=== PATIENT | male | born 1970 | race Caucasian/White ===

== ENCOUNTER 2016-08-15 09:11 | Observation (INO) ==
[2016-08-15] MEDS ORDERED: 0.9 % Sodium Chloride 1,000 ML IVC ONE (09:25)
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
[2016-08-15 09:55] LABS: Basophils # 0.1 K/mcL (0.0-0.2); Basophils % 0.7 %; Eosinophils # 0.5 K/mcL (0.0-0.6); Eosinophils % 4.2 %; Hematocrit 47.3 % (37.5-50.1); Hemoglobin 15.1 g/dL (12.9-16.9); Immature Granulocytes % 0.7 % (0-4); Immature Platelets 3.4 % (1.1-6.1); Lymphocytes # 2.2 K/mcL (0.6-4.6); Lymphocytes % 19.5 %; Mean Corpuscular HGB Conc 31.9 g/dL (31.6-35.5); Mean Corpuscular Hemoglobin 29.7 pg (28.0-33.3); Mean Corpuscular Volume 92.9 fL (83.0-100.0); Mean Platelet Volume 9.7 fL (9.4-12.4); Monocytes # 0.7 K/mcL (0.0-1.3); Neutrophils # 7.8 K/mcL (1.6-8.9); Platelet Count 317 K/mcL (140-400); Red Blood Count 5.09 M/mcL (4.19-5.50); Red Cell Distribution Width 14.1 % (11.5-14.5); Segmented Neutrophils % 68.9 %
--- NOTE | 2016-08-15 10:06 | Emergency Department Note ---
Disposition Clinical Impression: Hypoxemia, Weakness Fall Qualifiers: Encounter type: initial encounter Qualified Code(s): W19.XXXA - Unspecified fall, initial encounter Disposition: Admitted As Inpatient Condition: Good Time of Disposition: 11:57 Fall HPI - General Chief Complaint: ED Fall Stated Complaint: fall Time Seen by Provider: 08/15/16 09:16 Source: EMS Mode of arrival: ambulatory Limitations: no limitations Nursing Notes Reviewed: Yes Vital Signs Reviewed: Yes - History of Present Illness HPI Narrative: Patient is a 46-year-old male who presents to [facility] ED with a chief complaint of right-sided rib and hip pain status post fall. Patient has been sick with flulike symptoms for the last 2 weeks. He was seen in the emergency department on the and he has been on Bactrim and clindamycin for his sacral pilonidal cyst. Patient has had tactile fevers at home. States he has felt very dizzy throughout the last 2 weeks. Today when coming back from the mailbox, he was dizzy and fell against a coffee table. Patient states he does have chronic pain associated with his right hip and he has had prior total hip replacement done. He was able to ambulate afterwards with a cane. Has had some symptoms of nausea, vomiting and feels hot and cold at times. Past medical history significant for psychiatric problems and chronic pain. He follows with at the residency clinic. Patient denies being on any blood thinners. 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 Fall From: standing Fall Witnessed: yes Place Fall Occurred: home Loss of Consciousness: none Prolonged Down Time?: no Symptoms Prior to Fall: dizziness Context: tripped/slipped Location of injury: chest, hip Severity: moderate Associated symptoms (after fall): Reports: numbness - Related Data Previous Rx's Medication Instructions Recorded Gabapentin [Neurontin] 300 mg PO TID #90 capsule 05/14/15 Hydrochlorothiazide 25 mg PO DAILY #30 tablet 05/14/15 RisperiDONE [RisperDAL] 0.5 mg PO DAILY #30 tablet 05/14/15 Methocarbamol [Robaxin-750] 750 mg PO TID #30 tablet 07/17/15 Cyclobenzaprine HCl 10 mg PO HS PRN #20 tablet 06/17/16 Cephalexin [Keflex] 500 mg PO QID #40 capsule 07/01/16 GuaiFENesin/Dextromethorphan 5 ml PO Q6H PRN #120 ml 07/01/16 [Robitussin Cough-Chest Dm Liq] Ibuprofen [Motrin] 800 mg PO Q8HR PRN #30 tablet 07/01/16 Magic Mouthwash 5 ml PO TID PRN #120 ml 07/01/16 OxyCODONE/APAP 5/325 [Percocet 1 each PO Q6HR PRN #30 tablet 07/02/16 5/325 MG] HYDROcodone/Acet 5/325 mg [[employer] 1 tab PO Q6H PRN #16 tab 08/02/16 5-325 mg] Sulfamethoxazole/Trimeth DS 1 each PO BID #28 tablet 08/02/16 [Bactrim DS] OxyCODONE/APAP 10/325 [Percocet 1 each PO Q6HR PRN #12 tablet 08/07/16 10/325 MG] Allergies Allergy/AdvReac Type Severity Reaction Status Date / Time aspirin [ASA] Allergy Swelling Verified 07/02/16 11:58 of Lip/Tongue/Throat All systems ED: reviewed and negative except as stated. Fall PMH - Past Medical History Medical history: Reports: hypertension, other Surgical history: Reports: other Psychiatric history: Reports: prior suicide attempt, schizophrenia, other - Social History Smoking Status: Current every day smoker Alcohol use: Reports: unknown Drug use: Reports: none Physical Exam - General Limitations: no limitations General appearance: alert, appears intoxicated - Head Head exam: atraumatic, normocephalic, normal inspection - Eye Eye exam: Present: normal appearance, PERRL, EOMI - ENT ENT exam: normal exam, normal oropharynx, mucous membranes moist - Neck Neck exam: Present: normal inspection, full ROM, trachea midline - Chest Chest inspection: Present: normal inspection, symmetric chest wall rise - Respiratory Respiratory exam: Present: normal lung sounds bilaterally - Cardiovascular Cardiovascular exam: Present: normal rhythm, tachycardia, normal heart sounds - Abdominal Exam Abdominal exam: Present: soft, Non-Tender. Absent: tenderness, distention, guarding, rebound, rigidity - Extremities Exam Extremities exam: Present: normal inspection, full ROM. Absent: tenderness, pedal edema - Back Exam Back exam: Present: normal inspection, full ROM. Absent: tenderness - Neurological Exam Neurological exam: Present: alert, oriented X3 - Psychiatric Psychiatric exam: Present: normal affect, normal mood - Skin Skin exam: Present: warm, intact, normal color, diaphoresis Course Course Narrative: Patient seen and examined. He is hypoxemic on arrival at 89% on room air. Has had flulike symptoms over the last 2 weeks and has felt persistent lightheadedness and at times feels like the room is spinning. He had a fall today and hurt his right hip and right side of the chest. Rib x-rays along with PA chest x-ray and right hip x-ray ordered. We will check some labs and give him a bolus of IV fluids. - Reevaluation(s) Reevaluation #1: Labs show mild leukocytosis with a shift. Chest x-ray shows possible mild pulmonary edema and possible infiltration. We will go ahead and admit to the hospitalist service since patient is hypoxemic without oxygen. I spoke with hospitalist Dr. Browne who has accepted for admission. Influenza test was negative. Time: 11:56 Vital Signs Temperature 97.4 F L 08/15/16 09:13 Pulse Rate 99 08/15/16 09:13 Respiratory Rate 15 08/15/16 09:13 Blood Pressure 126/86 08/15/16 09:13 O2 Sat by Pulse Oximetry 91 L 08/15/16 09:13 Temperature 97.4 F L 08/15/16 09:13 Pulse Rate 96 08/15/16 11:40 Respiratory Rate 13 08/15/16 11:40 Blood Pressure 178/136 08/15/16 11:40 O2 Sat by Pulse Oximetry 91 L 08/15/16 11:40 Oxygen Delivery Oxygen Delivery Nasal Cannula Fall - Medical Records Medical records reviewed: Yes I reviewed the patient's medical records. - Lab Data Lab results reviewed: Yes I reviewed the patient's lab results. Result diagrams: 08/15/16 09:30 08/15/16 09:30 Lab Results 08/15/16 08/15/16 08/15/16 Range/Units 09:30 09:30 09:30 WBC 11.3 H (4.3-11.1) K/mcL RBC 5.09 (4.19-5.50) M/mcL Hgb 15.1 (12.9-16.9) g/dL Hct 47.3 (37.5-50.1) % MCV 92.9 (83.0-100.0) fL MCH 29.7 (28.0-33.3) pg MCHC 31.9 (31.6-35.5) g/dL RDW 14.1 (11.5-14.5) % Plt Count 317 (140-400) K/mcL MPV 9.7 (9.4-12.4) fL Immature Gran % 0.7 (0-4) % Seg Neutrophils % 68.9 % Lymphocytes % 19.5 % Monocytes % 6.0 % Eosinophils % 4.2 % Basophils % 0.7 % Neutrophils # 7.8 (1.6-8.9) K/mcL Lymphocytes # 2.2 (0.6-4.6) K/mcL Monocytes # 0.7 (0.0-1.3) K/mcL Eosinophils # 0.5 (0.0-0.6) K/mcL Basophils # 0.1 (0.0-0.2) K/mcL Immature Plt Fraction 3.4 (1.1-6.1) % Sodium 133 L (136-145) mEq/L Potassium 4.3 (3.5-4.5) mEq/L Chloride 101 (98-109) mEq/L Carbon Dioxide 23 (19-29) mEq/L BUN 7 L (8-26) mg/dL Creatinine 0.80 (0.72-1.25) mg/dL Est GFR ( Amer) > 60 (> 60) Est GFR (Non-Af Amer) > 60 (> 60) BUN/Creatinine Ratio 9 (6-26) Glucose 260 H (70-99) mg/dL Calculated Osmolality 283 (280-300) Lactic Acid (0.5-2.2) mmol/L Calcium 8.9 (8.6-10.8) mg/dL Total Bilirubin 0.4 (0.2-1.2) mg/dL AST 59 H (5-34) Units/L ALT 32 (0-55) Units/L Alkaline Phosphatase 118 (38-126) Units/L Troponin I 0.01 (0-0.03) ng/mL Serum Total Protein 8.4 H (6.0-8.3) g/dL Albumin 2.6 L (3.5-5.0) g/dL Globulin 5.8 H (2.4-3.5) g/dL Albumin/Globulin Ratio 0.4 L (1.1-2.2) 08/15/16 Range/Units 09:50 WBC (4.3-11.1) K/mcL RBC (4.19-5.50) M/mcL Hgb (12.9-16.9) g/dL Hct (37.5-50.1) % MCV (83.0-100.0) fL MCH (28.0-33.3) pg MCHC (31.6-35.5) g/dL RDW (11.5-14.5) % Plt Count (140-400) K/mcL MPV (9.4-12.4) fL Immature Gran % (0-4) % Seg Neutrophils % % Lymphocytes % % Monocytes % % Eosinophils % % Basophils % % Neutrophils # (1.6-8.9) K/mcL Lymphocytes # (0.6-4.6) K/mcL Monocytes # (0.0-1.3) K/mcL Eosinophils # (0.0-0.6) K/mcL Basophils # (0.0-0.2) K/mcL Immature Plt Fraction (1.1-6.1) % Sodium (136-145) mEq/L Potassium (3.5-4.5) mEq/L Chloride (98-109) mEq/L Carbon Dioxide (19-29) mEq/L BUN (8-26) mg/dL Creatinine (0.72-1.25) mg/dL Est GFR ( Amer) (> 60) Est GFR (Non-Af Amer) (> 60) BUN/Creatinine Ratio (6-26) Glucose (70-99) mg/dL Calculated Osmolality (280-300) Lactic Acid 1.3 (0.5-2.2) mmol/L Calcium (8.6-10.8) mg/dL Total Bilirubin (0.2-1.2) mg/dL AST (5-34) Units/L ALT (0-55) Units/L Alkaline Phosphatase (38-126) Units/L Troponin I (0-0.03) ng/mL Serum Total Protein (6.0-8.3) g/dL Albumin (3.5-5.0) g/dL Globulin (2.4-3.5) g/dL Albumin/Globulin Ratio (1.1-2.2) - Radiology Data Radiology results reviewed: Yes I reviewed the patient's radiology results. - EKG Data EKG attestation: Yes I reviewed and interpreted this EKG. EKG results narrative: EKG done at 941 shows normal sinus rhythm with a rate of [address] elevation or depression. Normal axis.
[2016-08-15 10:09] LABS: Alanine Aminotransferase 32 Units/L (0-55); Albumin 2.6 g/dL (3.5-5.0); Albumin/Globulin Ratio 0.4 (1.1-2.2); Alkaline Phosphatase 118 Units/L (38-126); Aspartate Amino Transferase 59 Units/L (5-34); BUN/Creatinine Ratio 9 (6-26); Bilirubin,Total 0.4 mg/dL (0.2-1.2); Blood Urea Nitrogen 7 mg/dL (8-26); Calcium 8.9 mg/dL (8.6-10.8); Carbon Dioxide 23 mEq/L (19-29); Chloride 101 mEq/L (98-109); Globulin 5.8 g/dL (2.4-3.5); Glucose 260 mg/dL (70-99); Osmolality,Calculated 283 (280-300); Potassium 4.3 mEq/L (3.5-4.5); Sodium 133 mEq/L (136-145); Total Protein 8.4 g/dL (6.0-8.3); eGFR For African Americans > 60 (> 60); eGFR For Non-African Americans > 60 (> 60)
[2016-08-15] MEDS ORDERED: Ondansetron 4 MG/2 ML VIAL IVP ONE (10:42)
[2016-08-15] MEDS ORDERED: *HR* HYDROmorphone (PF) 1 MG/ML SYRINGE IVP ONE (10:42)
[2016-08-15] MEDS ORDERED: Acetaminophen 325 MG TABLET PO PRN (12:44)
[2016-08-15] MEDS ORDERED: Naloxone 0.4 MG/ML INJ IVP PRN (12:44)
[2016-08-15] MEDS ORDERED: Ondansetron 4 MG/2 ML VIAL IVP PRN (12:46)
[2016-08-15] MEDS ORDERED: MOM Conc 10 ML UD.LIQ PO PRN (12:46)
[2016-08-15] MEDS ORDERED: Mag Hydrox/Al Hydrox/Simeth 30 ML UDC PO PRN (12:46)
[2016-08-15] MEDS ORDERED: Ibuprofen 800 MG TABLET PO PRN (12:48)
[2016-08-15] MEDS: 0.9 % Sodium Chloride 1,000 ML IVC SCH (13:20)
--- NOTE | 2016-08-15 13:23 | Internal Med History&Physical ---
<Haley Claros - Last Filed: 08/15/16 14:28> Date of Encounter: 08/15/16 Time of Encounter: 13:10 Assessment and Plan (1) Hypoxemia Current visit: Yes Status: Acute Pt SOB this a.m. and room air sats 91%. States that he became dizzy and fell at home. Chest xray shows low lung volume and mild pulmonary vascular congestion. Pt states that he has "walking pneumonia" and is being treated with PCN for the last week. Denies chest pain, fever, or productive cough, flu swab negative. Ronchi and faint expiratory wheezing heard in R post lung bonilla. 02 n/c to keep sats >92% Albuterol nebs prn Duoneb q4h prn Chest CT D-dimer 6 min walk/Sp02 Overnight pulse ox (2) Fall Current visit: Yes Status: Acute Dizziness this a.m. at home, he fell into the coffee table, injuring R ribs and hip. Fall precautions Up with assist. Qualifiers: Encounter type: initial encounter Qualified Code(s): W19.XXXA - Unspecified fall, initial encounter (3) Hyperglycemia Current visit: Yes Status: Acute Glucose 260 this a.m. Pt states that he had not eaten before it was drawn. A1c ordered. (4) Chronic pain Current visit: Yes Status: Chronic Pt sees pain management for chronic pain from R hip replacement. Pain control Qualifiers: Chronic pain type: chronic pain syndrome Qualified Code(s): G89.4 - Chronic pain syndrome (5) Flu-like symptoms Current visit: No Status: Acute Pt reports feeling dizzy this a.m. and reports non-productive cough. Flu swab negative. Internal Medicine - H&P: HPI Chief complaint: fall today, hypoxia Admitted From: Home Plans for Post Hospital Care: Home History of present illness: Mr. Norris is a 46 year old male with history of recurrent pylonidal cyst, schizophrenia, bipolar disorder, and chronic pain. He presents to the ED today after becoming dizzy and falling at home today, injuring R ribs and hip. He was found to be hypoxic with no identified cause. Rib and hip xrays negative for fractures and Head CT negative for acute intracranial process. Chest xray did show, however, low lung volume with mild pulmonary vascular congestion. Pt states that he was told by Dr. Stoddard that he had "walking pneumonia" and was placed on PCN for that, as well as Bactrim for his recent surgery for recurrent pylonidal cyst 3 weeks ago. He has been ill for 2 weeks. He smokes about 1 PPD. He gets home health for dressing changes. During exam, pt eats entire meal tray and speaks easily in full sentences without any difficulty. Past Med Surg Social Fam HX - Past Medical History Medical history: hypertension Psychiatric history: prior suicide attempt, schizophrenia, other - Past Surgical History Surgical History: other - Social History Smoking Status: Current every day smoker Packs per day: 06/30 Smokeless Tobacco Status: No Alcohol use: none Drug use: none Internal Medicine - H&P: Meds Amoxicillin/Clavulanate [Augmentin] 875 mg PO BID 08/15/16 [History] Clindamycin [Cleocin] 300 mg PO Q8H 08/15/16 [History] HYDROcodone/Acet 5/325 mg [[place] 5-325 mg] 1 tab PO Q6H PRN 08/15/16 [History] HydrOXYzine Pamoate [Vistaril] 25 mg PO Q8H PRN 08/15/16 [History] Allergies aspirin [ASA] Allergy (Verified 07/02/16 11:58) Swelling of Lip/Tongue/Throat All Systems PM: A 10-system review of systems was performed and is negative for pertinent findings except as documented above in the HPI. - Constitutional Constitutional: no chills, no fever(s), no weakness - Cardiovascular Cardiovascular ROS IM: dyspnea, no chest pain, no lightheadedness, no palpitations - Respiratory Respiratory: cough, dyspnea, dyspnea on exertion, no chest congestion, no excessive phlegm production, no change in phlegm color, no pain with cough - Gastrointestinal Gastrointestinal: no diarrhea, no nausea, no vomiting - Integumentary Integumentary IM: no rash - Neurological Neurological ROS: dizziness - Constitutional Vitals: Temp Pulse Resp BP Pulse Ox 98.4 F 84 14 132/78 96 08/15/16 12:50 08/15/16 12:50 08/15/16 12:50 08/15/16 12:50 08/15/16 12:50 General appearance: Present: cooperative, A&O X 3, morbidly obese, no acute distress, answers questions appropriately - ENT ENT exam: Present: mucous membranes moist, normal exam - Neck Neck exam general surgery: Absent: lymphadenopathy, tenderness - Respiratory Respiratory exam: Present: decreased breath sounds, rhonchi, wheezes. Absent: chest wall tenderness, respiratory distress Additional comments: No chest wall/rib tenderness to palpation. Decreased lung sounds throughout, ronchi heard on R post - Cardiovascular Cardiovascular exam: Present: RRR, +S1, +S2. Absent: tachycardia - GI/Abdominal GI/Abdominal exam: Present: distended, hyperactive bowel sounds, soft. Absent: tenderness - Extremities Exam Extremities exam: Present: normal capillary refill, pedal edema, warm. Absent: calf tenderness, tenderness - Back Exam Back exam: Present: full ROM, normal inspection Additional comments: Pt has dressing covering site where pylonidal cyst was removed. - Neurological Exam Neurological exam: Present: alert, oriented X3, no focal deficits - Psychiatric Psychiatric exam: Present: normal affect, normal mood Internal Med - H&P Results - Labs CBC & Chem 7: 08/15/16 09:30 08/15/16 09:30 - EKG Data EKG shows normal: sinus rhythm Rate: normal - EKG Data Prior EKG available for review: no Interpretation IM: normal EKG EKG comments: 08/15/16 13:47 Sinus rhythm Vent rate 88 NV int 144 QRS 81 QT/QTc 343/389 <Valentina Schmitz E - Last Filed: 08/16/16 07:36> Date of Encounter: 08/16/16 Internal Medicine - H&P: HPI History of present illness: Mr. Norris is a 46 year old male All Systems PM: A 10-system review of systems was performed and is negative for pertinent findings except as documented above in the HPI. - Constitutional Vitals: Temp Pulse Resp BP Pulse Ox 97.7 F 109 20 126/76 91 L 08/16/16 02:57 08/16/16 02:57 08/16/16 04:38 08/16/16 02:57 08/16/16 04:38 Internal Med - H&P Results - Labs CBC & Chem 7: 08/16/16 04:21 08/16/16 04:21 Labs: Short CBC 08/16/16 Range/Units 04:21 WBC 10.9 (4.3-11.1) K/mcL Hgb 14.0 (12.9-16.9) g/dL Hct 44.2 (37.5-50.1) % Plt Count 271 (140-400) K/mcL Neutrophils # 7.2 (1.6-8.9) K/mcL BMP 08/16/16 04:21 Sodium 134 L Potassium 4.1 Chloride 101 Carbon Dioxide 24 BUN 9 Creatinine 0.76 Glucose 144 H Calcium 8.2 L - Attending Attestation I examined this patient and reviewed laboratory, imaging and all diagnostic data on 08/14/16. My medical decision-making was reviewed with SAMSON Claros. I agree with the documented findings, disposition and treatment plan as described above. 46 yo M with past medical history of recurrent pylonidal cyst taking clindamycin and amoxicillin, schizophrenia, bipolar disorder, and chronic pain. He came to ED after falling at home. He reports upper respiratory symptoms for a few days and dizziness this morning. SaO2 91% in RA. On exam, pt is a severely obese man, diminished air entry at lung bases, no wheezes, pylonidal cyst is healing well. CT head, no acute process. CXR showed mild pulmonary vascular congestion. BMP unremarkable. Admitted for hypoxia, dehydration from viral illness, morbidly obese. echo ordered. supportive therapy for viral illness. continue clindamycin and amoxicillin for pylonidal cyst. Needs oupatient PFTs and sleep study.
[2016-08-15 13:43] LABS: Hemoglobin A1C 8.2 %
[2016-08-15] MEDS: *HR* OxyCODONE/APAP 5/325 TABLET PO PRN ×2 (13:49→19:59)
[2016-08-15] MEDS ORDERED: Albuterol 2.5 MG/3 ML NEBULIZER IH PRN (13:54)
[2016-08-15] MEDS: Ipratropium/Albuterol Neb 3 ML IH SCH ×2 (15:46→20:47)
[2016-08-15] MEDS ORDERED: *HR* Dextrose 50 % in Water (Syg) 50 ML SYRINGE IVP PRN (16:27)
[2016-08-15] MEDS ORDERED: D5% in Water 1,000 ML IV PRN (16:27)
[2016-08-15] MEDS ORDERED: Dextrose Gel 15 GM PO PRN ×2 (16:27)
[2016-08-15] MEDS: Insulin LISPRO 300 UNITS/3 ML VIAL SQ SCH (17:28)
[2016-08-15] MEDS ORDERED: Insulin LISPRO 300 UNITS/3 ML VIAL SQ SCH (21:00)
[2016-08-16] MEDS: Ipratropium/Albuterol Neb 3 ML IH SCH ×5 (00:20→15:36)
[2016-08-16] MEDS: *HR* OxyCODONE/APAP 5/325 TABLET PO PRN ×2 (01:37→07:49)
[2016-08-16] MEDS: 0.9 % Sodium Chloride 1,000 ML IVC SCH (05:32)
[2016-08-16 05:52] LABS: Basophils # 0.1 K/mcL (0.0-0.2); Basophils % 0.6 %; Eosinophils # 0.4 K/mcL (0.0-0.6); Hematocrit 44.2 % (37.5-50.1); Immature Granulocytes % 0.7 % (0-4); Lymphocytes # 2.5 K/mcL (0.6-4.6); Lymphocytes % 22.4 %; Mean Corpuscular HGB Conc 31.7 g/dL (31.6-35.5); Mean Corpuscular Volume 94.8 fL (83.0-100.0); Mean Platelet Volume 10.3 fL (9.4-12.4); Monocytes # 0.8 K/mcL (0.0-1.3); Monocytes % 6.9 %; Neutrophils # 7.2 K/mcL (1.6-8.9); Platelet Count 271 K/mcL (140-400); Red Blood Count 4.66 M/mcL (4.19-5.50); Red Cell Distribution Width 14.4 % (11.5-14.5); Segmented Neutrophils % 65.4 %
[2016-08-16 06:03] LABS: BUN/Creatinine Ratio 12 (6-26); Blood Urea Nitrogen 9 mg/dL (8-26); Calcium 8.2 mg/dL (8.6-10.8); Carbon Dioxide 24 mEq/L (19-29); Chloride 101 mEq/L (98-109); Glucose 144 mg/dL (70-99); Osmolality,Calculated 279 (280-300); Potassium 4.1 mEq/L (3.5-4.5); Sodium 134 mEq/L (136-145); eGFR For African Americans > 60 (> 60); eGFR For Non-African Americans > 60 (> 60)
[2016-08-16] MEDS: Insulin LISPRO 300 UNITS/3 ML VIAL SQ SCH ×2 (07:49→11:52)
[2016-08-16] MEDS ORDERED: Perflutren Lipid Microsphere 1.3 ML in 0.9 % Sodium Chloride 8.7 ML IVP ONE (07:52)
--- NOTE | 2016-08-16 11:58 | ECHO - Doppler Report ---
Echocardiogram Name: Jessee Norris Date of Study: 08/16/2016 Date: 1970 Ht: 71.0 in Medical Record#: [id number] Age: 46 Wt: 371.0 lb Gender: Male BSA: 2.74 Order #: [id number] Location: [facility] Room #: [id number] Reading Physician: Marc Bonilla DO, THOM HOLLIDAY FASNC Production Consultant: Natalie Aguilar Ordering Physician: Haley Claros CNP Primary Physician: Erika Stoddard DO Indications: Hypoxia Impressions: LVEF 60-65%. Normal LV chamber size and function. Mild concentric left ventricular hypertrophy. Moderate left ventricular diastolic dysfunction. Right ventricle not well visualized, but grossly demonstrates normal function. Mild to moderately dilated left atrium. No evidence of pulmonary hypertension. No significant valvular dysfunction. Left Ventricular Wall Motion: Rest Echo Findings All wall segments showed normal motion. Findings: Study Quality * Technically adequate exam. ECG Findings * Normal sinus rhythm. Left Ventricle * LVEF 60-65%. * Normal LV chamber size and function. * Mild concentric left ventricular hypertrophy. * Moderate left ventricular diastolic dysfunction. Right Ventricle * Right ventricle not well visualized, but grossly demonstrates normal function. Left Atrium * Mild to moderately dilated left atrium. Right Atrium * Mildly dilated right atrium. Interatrial Septum * Interatrial septum not well evaluated. Aortic Valve * Aortic valve not well visualized. * No aortic regurgitation. * No aortic stenosis. Mitral Valve * Mildly thickened mitral valve leaflets. * No mitral regurgitation. * No mitral stenosis. Tricuspid Valve * Normal tricuspid valve structure and function. * Trace tricuspid regurgitation. * No evidence of pulmonary hypertension. Pulmonic Valve * Pulmonic valve is not well visualized. * No pulmonic regurgitation. Aorta * Normally sized aortic root. Pericardium * The pericardium appears normal. IVC * Normal IVC dimensions and inspiratory collapse. Pulmonary Artery * Normal visualized portions of the main pulmonary artery. History Diabetes History of Smoking Years 30 Packs 0.5 Family History of CAD Measurements: BP: 126/ 76 2D Normal Values RVIDd: 3.00 cm <2.7 cm IVSd: 1.20 cm 0.6 - 1.0 cm LVIDd: 4.80 cm 3.7 - 5.6 cm LVPWd: 1.20 cm 0.6 - 1.1 cm LVIDs: 3.20 cm 1.5 - 3.6 cm AO: 3.00 cm < 4.0 cm LA: 4.00 cm 2.0 - 4.0cm %FS: 33.30 cm >25 % LA volume: 67 Mitral Valve Peak E:1.10 m/sec Peak A:.91 m/sec E/A Ratio:1.2 Peak E' Lat Tanvir:8.97 cm/s Peak E' Med Tanvir:7.7 cm/s E/E' Lat Ratio:12.3 E/E' Med Ratio:14.3 Tricuspid Valve TV Regurg Peak Grad: 21.00mmHg TV Regurg Peak Tanvir: 2.28m/sec Updated by Marc Bonilla DO, FACCory, THOM, KASEY on 08/16/2016 11:53:03 AM electronically signed on 08/16/2016 11:53:50 AM with status of Final Wall Motion [place]: 1=Normal, 2=Hypokinesis, 3=Akinesis, 4=Dyskinesis, 5=Aneurysmal, 6=Hyperkinetic, X=Not Visualized (Blank)=Missing
[2016-08-16 12:33] VITALS: BP 123/56
[2016-08-16 13:24] LABS: ABG PCO2 46 mmHg (35-45)
[2016-08-16 13:29] LABS: ABG Base Excess 1.4 mEq/L (-2.0 to 3.0); ABG HCO3 27.2 mEQ/L (21-27); ABG Oxygen Saturation 88 % (95-98); ABG PH 7.38 pH Units (7.32-7.45); ABG PO2 55 mmHg (85-104); ABG TCO2 28.6 mEq/L (20-26)
[2016-08-16 13:32] LABS: Blood Gas FiO2 21 %
--- NOTE | 2016-08-16 14:41 | Discharge Summary ---
Date of Encounter: 08/16/16 Time of Encounter: 13:00 - Discharge Diagnosis (1) Fall Priority: Primary Status: Acute Comments: Unclear causation however patient is chronically mentioned persistently throughout this admission and he wants his "Perc 10's." No acute infectious process noted. Head CT negative. Chest x-ray with pulmonary vascular congestion coupled with moderate diastolic dysfunction on echocardiogram and the patient was started on Lasix. He states he is on Lasix in the past but has not been on it for nearly a year. He also had an abnormal sleep study while admitted, recommend full outpatient sleep study for BiPAP qualification. Also new diagnosis of diabetes. Recommend follow closely outpatient. 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 (3) Diabetes mellitus, new onset Priority: Primary Status: Acute Comments: A1c 8.2%. Seen by diabetes education and started on metformin. Follow-up outpatient (4) Diastolic heart failure Priority: Primary Status: Acute Comments: Likely acute on chronic however do not have a prior echocardiogram for review. Echocardiogram revealing moderate diastolic dysfunction with preserved ejection fraction of 60-65%. Patient stating he has been on Lasix in the past. Chest x- ray also revealing pulmonary vascular congestion, we will initiate low-dose Lasix and have him follow-up outpatient Qualifiers: Heart failure chronicity: acute Qualified Code(s): I50.31 - Acute diastolic (congestive) heart failure (5) JAC (obstructive sleep apnea) Priority: Primary Status: Acute Comments: He did desaturate overnight we are unable to qualify him for BiPAP due to his ABGs. Recommend outpatient sleep study in the near future. (6) Hyperglycemia Priority: Primary Status: Acute Comments: Diagnosed with diabetes and started on metformin (7) Hypoxemia Priority: Primary Status: Resolved Comments: On room air on day of discharge. Recommend outpatient sleep study. (8) Weakness Priority: Primary Status: Resolved Comments: Upright steady gait noted on day of discharge. (9) Chronic pain Priority: Secondary Status: Chronic Comments: Patient mentioned obtaining his "Perc tens" several times throughout this admission. He states that he was incarcerated for 9 months up until a short while ago and states he cannot get in with his pain management physician until . Qualifiers: Chronic pain type: chronic pain syndrome Qualified Code(s): G89.4 - Chronic pain syndrome (10) Morbid obesity with BMI of 50.0-59.9, adult Priority: Secondary Status: Chronic (11) Drug-seeking behavior Priority: Primary Status: Acute Comments: patient continually asked for his "Perc 10's". In review of his [facility] report back until 2013, he has never been on percocet 10mg tablets until this past week when he told the ER physician that that is what he takes. I attempted to verify that he had an appointment with Dr Virginie Wellington in [place], [place] [phone] but I was unable to get ahold of his staff. OARRS report with 14 different prescriptions from 12 different providers. He was also seen by his primary care provider within the last couple weeks who also noted is drug seeking behavior. No narcotics were written at this time. I did offer him ibuprofen. - Discharge Medications Prescriptions: Ibuprofen [Motrin] 800 mg PO Q8HR PRN #30 tablet PRN Reason: Pain Blood Sugar Diagnostic [Test Strips] 1 each MC DAILY #100 strip Furosemide [Lasix] 20 mg PO DAILY #30 tablet Lancets 1 each MC DAILY #100 each Metformin [Glucophage] 500 mg PO BIDWM #60 tablet Nicotine Patch [Nicoderm] 21 mg TD DAILY #30 patch.td24 Home Medications: Amoxicillin/Clavulanate [Augmentin] 875 mg PO BID 08/15/16 [History] Clindamycin [Cleocin] 300 mg PO Q8H 08/15/16 [History] HydrOXYzine Pamoate [Vistaril] 25 mg PO Q8H PRN 08/15/16 [History] Blood Sugar Diagnostic [Test Strips] 1 each MC DAILY #100 strip 08/16/16 [Rx] Furosemide [Lasix] 20 mg PO DAILY #30 tablet 08/16/16 [Rx] Ibuprofen [Motrin] 800 mg PO Q8HR PRN #30 tablet 08/16/16 [Rx] Lancets 1 each MC DAILY #100 each 08/16/16 [Rx] Metformin [Glucophage] 500 mg PO BIDWM #60 tablet 08/16/16 [Rx] Nicotine Patch [Nicoderm] 21 mg TD DAILY #30 patch.td24 08/16/16 [Rx] Allergies/Adverse Reactions: Allergies aspirin [ASA] Allergy (Verified 07/02/16 11:58) Swelling of Lip/Tongue/Throat Procedures/tests Complete & Pending: Procedures Performed prior 72 hours Category Date Time Status CTA chest [CT angio chest] [CT] Routine Cat Scan 08/16/16 09:30 Completed EV echocardiogram Routine Y 08/16/16 14:15 Completed Date of admission: 08/15/16 11:38 Primary care physician: Erika Stoddard DO Consults: 08/15/16 12:41 Consult to Acetylene Burner [CONS] Routine Reason for SW Consult: [facility]. 08/15/16 16:27 Consult to [employer] [CONS] Routine Comment: Discharging clinician: Moni Miles Anticipated date of discharge: 08/16/16 - Patient Status Disposition: Home Health Service Condition: Fair Functional capacity at discharge: independent ambulation Overall status at discharge: patient is back to baseline - Discharge Instructions Follow Up With: Erika Stoddard DO [Primary Care Provider] - Virginie Wellington MD [Non-Partnered Physician] - Additional Instructions: Follow-up with your primary care provider and your pain management provider as scheduled - Diet and Activity Activity: increase activity as tolerated Diet: diabetic diet, low fat, low cholesterol, low salt diet Hospital course: Mr. Norris is a 46 year old male with past medical history of hypertension, schizophrenia, bipolar, prior suicide attempt, 2 pack per day smoker, morbid obesity with BMI of 52, recurrent pilonidal cysts, and chronic pain issues. Patient presented to the emergency department chief complaint dizziness and falling at home injuring his right-sided ribs and hip. While in the emergency department, he was noted to be mildly hypoxic with no obvious etiology. Rib and hip x-rays negative for acute processes. Head CT negative. Chest x-ray revealing low lung volumes and mild pulmonary vascular congestion. Patient had been treated outpatient per Dr. Stoddard for "walking pneumonia"and was on Augmentin and clindamycin. Chest CTA negative for acute processes. He was admitted to the hospitalist service for further evaluation and management. He was hyperglycemic so an A1c was checked which was 8.2% so he was diagnosed with diabetes. Diabetes education saw the patient. He was started on metformin. We also did an overnight pulse oximetry and he was hypoxic however his ABGs were not abnormal enough for us to diagnose him with sleep apnea and for him to have a BiPAP set up as a result of this admission, recommend formal outpatient sleep study. Echocardiogram also revealed moderate diastolic dysfunction with preserved ejection fraction. Patient stated he was on Lasix up until 6-9 months ago when he became incarcerated. He was started back on Lasix given that his chest x-ray also revealed pulmonary vascular congestion. No pedal edema. He was on room air prior to discharge and tolerated it well. He had an upright and steady gait. He was requesting nicotine patch stating that he wanted to try stop smoking. He made it very evident to his nursing and providers that his main goal of this admission was to procure more ""perc 10's. " In review of his OARRS report back until 2013, he has never been on percocet 10mg tablets until this past week when he told the ER physician that that is what he takes. I attempted to verify that he had an appointment with Dr Virginie Wellington in [place], [place] on 08/25/16 ([phone]) but I was unable to get ahold of his staff. OARRS report with 14 different prescriptions from 12 different providers- as this visit was because of a fall, his chronic pain management will be at the discretion of his primary care team. He was prescribed ibuprofen. He was discharged home in stable condition with close outpatient follow-up with his primary care provider and his pain management physician recommended. ITS Impressions Hip X-Ray 08/15/16 09:25 IMPRESSION: No acute fracture or dislocation about the right hip detected. Extensive surgical changes as described above. D/ / Wilmer Townsend MD / Wilmer Townsend MD Interpreting Provider: Wilmer Townsend MD Head CT 08/15/16 09:28 IMPRESSION: No acute intracranial abnormality. D/ / Lonnie Temple MD / Lonnie Temple MD Interpreting Provider: Lonnie Temple MD Ribs w/Chest X-Ray 08/15/16 09:28 IMPRESSION: 1. Low lung volumes with mild pulmonary vascular congestion. 2. Old, healed right 8th rib fracture. 3. There are multifocal linear radiopaque markers noted along the neck and right breast which are of uncertain etiology, not appreciably changed. D/ / Jace Doyle MD / Jace Doyle MD Interpreting Provider: Jace Doyle MD Chest CTA 08/16/16 09:30 IMPRESSION: No evidence of pulmonary embolism or acute pulmonary abnormality. D/ / Lonnie Temple MD / Lonnie Temple MD Interpreting Provider: Lonnie Temple MD Echocardiogram impressions: LVEF 60-65%. Normal LV chamber size and function. Mild concentric left ventricular hypertrophy. Moderate left ventricle diastolic dysfunction. Right ventricle not well visualized, but grossly demonstrates normal function. Mild to moderately dilated left atrium. No evidence of pulmonary hypertension. No significant valvular dysfunction. Time spent discussing smoking cessation with patient: 3 to 10 minutes - Time Spent with Patient Total time spent providing and/or coordinating discharge services: - Constitutional Vitals: Temp Pulse Resp BP Pulse Ox 97.8 F 81 20 123/56 93 L 08/16/16 12:32 08/16/16 12:32 08/16/16 12:32 08/16/16 12:32 08/16/16 12:32 General appearance: Present: cooperative, A&O X 3, morbidly obese, no acute distress, answers questions appropriately - Head Head exam: Present: atraumatic, normocephalic - Eye Eye exam: Present: PERRL, conjuntiva pink, sclera anicteric Pupils: Present: PERRL - Neck Neck exam general surgery: Present: supple, trachea midline. Absent: lymphadenopathy - Respiratory Respiratory exam: Present: decreased breath sounds. Absent: accessory muscle use, rales, respiratory distress, rhonchi, wheezes - Cardiovascular Cardiovascular exam: Present: RRR, +S1, +S2. Absent: diastolic murmur, gallop, rubs, systolic murmur - GI/Abdominal GI/Abdominal exam: Present: distended, normal bowel sounds, soft, no peritoneal signs. Absent: tenderness - Extremities Exam Extremities exam: Present: warm, radial pulses palpable and symetrical. Absent : calf tenderness, cyanotic, pedal edema - Neurological Exam Neurological exam: Present: alert, CN II-XII intact, normal gait, oriented X3, no focal deficits, strengths equal and symetr throughout. Absent: pronater drift, facial droop, speech deficit - Skin Skin exam: Present: dry, intact, normal color, warm
--- NOTE | 2016-08-16 15:19 | Physician Discharge Referral ---
Home Health/Hosp Referral Info Transfer to: Home Health Attending Provider: Kar Miles CNP Provider in Charge Post Discharge: PCP - Diagnosis (1) Fall Priority: Primary Status: Acute (2) Tobacco abuse Priority: Secondary Status: Chronic (3) Diabetes mellitus, new onset Priority: Primary Status: Acute (4) Diastolic heart failure Priority: Primary Status: Acute (5) JAC (obstructive sleep apnea) Priority: Primary Status: Acute (6) Hyperglycemia Priority: Primary Status: Acute (7) Hypoxemia Priority: Primary Status: Resolved (8) Weakness Priority: Primary Status: Resolved (9) Chronic pain Priority: Secondary Status: Chronic (10) Morbid obesity with BMI of 50.0-59.9, adult Priority: Secondary Status: Chronic (11) Drug-seeking behavior Priority: Primary Status: Acute - Respiratory Orders Smoking Cessation: Smoking cessation has been advised. For more information, call the [place] Tobacco Quit Line at 8-871-DIYB-NOW. - Diet/Nutrition Diet/Nutrition Orders: No Added Salt (FRANKY), Cardiac, No Concentrated Sweets - Activity Activity Orders: Up ad loraine - Services Needed Following services are medically necessary services: Home Health Aide - Transfer Medications Prescriptions: Ibuprofen [Motrin] 800 mg PO Q8HR PRN #30 tablet PRN Reason: Pain Blood Sugar Diagnostic [Test Strips] 1 each MC DAILY #100 strip Furosemide [Lasix] 20 mg PO DAILY #30 tablet Lancets 1 each MC DAILY #100 each Metformin [Glucophage] 500 mg PO BIDWM #60 tablet Nicotine Patch [Nicoderm] 21 mg TD DAILY #30 patch.td24 Home Medications: Amoxicillin/Clavulanate [Augmentin] 875 mg PO BID 08/15/16 [History] Clindamycin [Cleocin] 300 mg PO Q8H 08/15/16 [History] HydrOXYzine Pamoate [Vistaril] 25 mg PO Q8H PRN 08/15/16 [History] Blood Sugar Diagnostic [Test Strips] 1 each MC DAILY #100 strip 08/16/16 [Rx] Furosemide [Lasix] 20 mg PO DAILY #30 tablet 08/16/16 [Rx] Ibuprofen [Motrin] 800 mg PO Q8HR PRN #30 tablet 08/16/16 [Rx] Lancets 1 each MC DAILY #100 each 08/16/16 [Rx] Metformin [Glucophage] 500 mg PO BIDWM #60 tablet 08/16/16 [Rx] Nicotine Patch [Nicoderm] 21 mg TD DAILY #30 patch.td24 08/16/16 [Rx] Allergies/Adverse Reactions: Allergies aspirin [ASA] Allergy (Verified 07/02/16 11:58) Swelling of Lip/Tongue/Throat Certification: Further, I certify that my clinical findings support that this patient is homebound (i.e. absences from home require considerable and taxing effort and are for medical reasons or shinto services or infrequently or short duration when for other reasons) because: Homebound Reason: Leaving home requires considerable and taxing effort due to condition Attestation: My signature below is to certify that this patient is under my care and that I, or nurse practitioner, or a physician's teachers assistant working with me, has a face-to -face encounter with this patient.
--- NOTE | 2016-08-17 17:35 | Electrocardiograph Report ---
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
== END 2016-08-16 15:30 | disposition home health service (06) ==
LOC: 3BNU 09:11 → EMEROO 09:11 → SUATTDRO 11:38 → 3BNU 12:19
PROVIDERS: ADMIT Internal Medicine; ATTEND Internal Medicine

== ENCOUNTER 2016-11-10 09:08 | Observation (INO) ==
--- NOTE | 2016-11-10 09:27 | Emergency Department Note ---
Disposition Clinical Impression: Hyperglycemia Disposition: Admitted As Inpatient Condition: Good Referrals: Erika Stoddard DO [Primary Care Provider] - Forms: Work/School Release, ED Satisfaction Letter General Adult HPI - General Chief complaint: ED General Medical Stated complaint: hyperglycemia sent by PCP Time Seen by Provider: 11/10/16 09:23 Source: patient Limitations: no limitations Nursing Notes Reviewed: Yes Vital Signs Reviewed: Yes - History of Present Illness HPI Narrative: Patient is a 46-year-old male was not been compliant with his medications was seen at [facility] ER yesterday was dosed with diabetic ketoacidosis but had to go home because he had dogs here to take care of. He has been complaining of polyuria polydipsia weakness generalized malaise and blurry vision. Pain Scale: 10 Consistency: constant Improves with: nothing Worsens with: nothing Associated symptoms: Reports: loss of appetite, malaise. Denies: chest pain, nausea/vomiting Treatments Prior to Arrival: none - Related Data Home Medications Medication Instructions Recorded Confirmed Amoxicillin/Clavulanate [Augmentin] 875 mg PO BID 08/15/16 08/15/16 Clindamycin [Cleocin] 300 mg PO Q8H 08/15/16 08/15/16 HydrOXYzine Pamoate [Vistaril] 25 mg PO Q8H PRN 08/15/16 08/15/16 Previous Rx's Medication Instructions Recorded Blood Sugar Diagnostic [Test 1 each MC DAILY #100 strip 08/16/16 Strips] Blood-Glucose Meter [Freestyle 1 each MC DAILY #1 each 08/16/16 Precision Alfredo Meter] Furosemide [Lasix] 20 mg PO DAILY #30 tablet 08/16/16 Ibuprofen [Motrin] 800 mg PO Q8HR PRN #30 tablet 08/16/16 Lancets 1 each MC DAILY #100 each 08/16/16 Nicotine Patch [Nicoderm] 21 mg TD DAILY #30 patch.td24 08/16/16 metFORMIN [Glucophage] 500 mg PO BIDWM #60 tablet 08/16/16 Doxycycline 100 mg PO BID #20 capsule 08/31/16 OxyCODONE/APAP 5/325 [Percocet 1 each PO Q6HR PRN #10 tablet 09/25/16 5/325 MG] Allergies Allergy/AdvReac Type Severity Reaction Status Date / Time aspirin [ASA] Allergy Swelling Verified 10/16/16 22:39 of Lip/Tongue/Throat All systems ED: reviewed and negative except as stated. Constitutional: Reports: weakness. Denies: fever, chills Endocrine: Reports: polydipsia, polyuria Past Medical History - Past Medical History Source: patient, old records reviewed, obtained from family, nursing notes reviewed Medical history: Reports: diabetes, hypertension, other Surgical history: Reports: other Psychiatric history: Reports: prior suicide attempt, schizophrenia, previous psychiatric hospitalization, other - Social History Smoking Status: Current every day smoker Smokeless Tobacco Status: No Alcohol use: Reports: none Drug use: Reports: none Physical Exam - General Limitations: no limitations General appearance: alert - Head Head exam: atraumatic, normocephalic, normal inspection - Eye Eye exam: Present: normal appearance, PERRL, EOMI - Expanded Eye Exam Pupils: Left: reactive - ENT ENT exam: normal exam, normal oropharynx, mucous membranes moist - Expanded ENT Exam External ear exam: Present: normal external inspection Mouth exam: Present: normal external inspection Teeth exam: Present: normal inspection Throat exam: Present: normal inspection - Neck Neck exam: Present: normal inspection, full ROM, trachea midline - Chest Chest inspection: Present: normal inspection, symmetric chest wall rise - Respiratory Respiratory exam: Present: normal lung sounds bilaterally - Cardiovascular Cardiovascular exam: Present: regular rate, normal rhythm, normal heart sounds - Abdominal Exam Abdominal exam: Present: soft, Non-Tender. Absent: tenderness, distention, guarding, rebound, rigidity - Extremities Exam Extremities exam: Present: normal inspection, full ROM. Absent: tenderness, pedal edema - Expanded Upper Extremity Exam Shoulder exam: Present: normal inspection, full ROM Arm exam: Present: normal inspection, full ROM Elbow exam: Present: normal inspection, full ROM Forearm/Wrist exam: Present: normal inspection, full ROM Hand exam: Present: normal inspection, full ROM Vascular exam: Normal: capillary refill, radial pulse - Expanded Lower Extremity Exam Hip/Pelvis exam: Present: normal inspection, full ROM Upper leg exam: Present: normal inspection, full ROM Knee exam: Present: normal inspection, full ROM Lower leg exam: Present: normal inspection, full ROM Ankle exam: Present: normal inspection, full ROM Foot/toe exam: Present: normal inspection, full ROM Neurovascular/Tendon exam: Absent: motor deficit, sensory deficit, tendon deficit - Back Exam Back exam: Present: normal inspection, full ROM. Absent: tenderness - Neurological Exam Neurological exam: Present: alert, oriented X3 - Expanded Neurological Exam Patient oriented to: Present: person, place, time Coma Scale Eye Opening: Spontaneous Coma Scale Motor Response: Obeys Commands Coma Scale Verbal Response: Oriented Coma Scale Total: 15 - Psychiatric Psychiatric exam: Present: normal affect, normal mood - Skin Skin exam: Present: warm, dry, intact, normal color Course Vital Signs Temperature 98.2 F 11/10/16 09:14 Pulse Rate 107 11/10/16 09:14 Respiratory Rate 18 11/10/16 09:14 Blood Pressure 121/84 11/10/16 09:14 O2 Sat by Pulse Oximetry 94 11/10/16 09:14 Temperature 98.2 F 11/10/16 09:14 Pulse Rate 97 11/10/16 09:55 Respiratory Rate 18 11/10/16 09:55 Blood Pressure 126/83 11/10/16 09:55 O2 Sat by Pulse Oximetry 94 11/10/16 09:55 Oxygen Delivery Oxygen Delivery Room Air Medical Decision Making - Medical Records Medical records reviewed: Yes I reviewed the patient's medical records. - Lab Data Lab results reviewed: Yes I reviewed the patient's lab results. Result diagrams: 11/10/16 09:47 11/10/16 09:47 Lab Results 11/10/16 11/10/16 11/10/16 Range/Units 09:22 09:24 09:47 WBC 8.9 (4.3-11.1) K/mcL RBC 5.48 (4.19-5.50) M/mcL Hgb 16.6 (12.9-16.9) g/dL Hct 50.5 H (37.5-50.1) % MCV 92.2 (83.0-100.0) fL MCH 30.3 (28.0-33.3) pg MCHC 32.9 (31.6-35.5) g/dL RDW 14.6 H (11.5-14.5) % Plt Count 251 (140-400) K/mcL MPV 10.4 (9.4-12.4) fL Immature Gran % 0.3 (0-4) % Seg Neutrophils % 66.8 % Lymphocytes % 23.8 % Monocytes % 6.6 % Eosinophils % 1.9 % Basophils % 0.6 % Neutrophils # 6.0 (1.6-8.9) K/mcL Lymphocytes # 2.1 (0.6-4.6) K/mcL Monocytes # 0.6 (0.0-1.3) K/mcL Eosinophils # 0.2 (0.0-0.6) K/mcL Basophils # 0.1 (0.0-0.2) K/mcL VBG pH (7.32-7.42) pH Units VBG pCO2 (41-51) mmHg VBG pO2 (25-40) mmHg VBG HCO3 (21-27) mEq/L Sodium (136-145) mEq/L Potassium (3.5-4.5) mEq/L Chloride (98-109) mEq/L Carbon Dioxide (19-29) mEq/L BUN (8-26) mg/dL Creatinine (0.72-1.25) mg/dL Est GFR ( Amer) (> 60) Est GFR (Non-Af Amer) (> 60) BUN/Creatinine Ratio (6-26) Glucose (70-99) mg/dL POC Glucose 475 H* 440 H* (58-89) Est Mean Plasma Glucose mg/dl Hemoglobin A1c ( - 5.6) % Calculated Osmolality (280-300) Calcium (8.6-10.8) mg/dL Phosphorus (2.3-4.7) mg/dL Magnesium (1.6-2.6) mg/dL Total Bilirubin (0.2-1.2) mg/dL AST (5-34) Units/L ALT (0-55) Units/L Alkaline Phosphatase (38-126) Units/L Serum Total Protein (6.0-8.3) g/dL Albumin (3.5-5.0) g/dL Globulin (2.4-3.5) g/dL Albumin/Globulin Ratio (1.1-2.2) Beta-Hydroxybutyric Acd (0.02-0.27) mmol/L 11/10/16 11/10/16 11/10/16 Range/Units 09:47 09:47 09:47 WBC (4.3-11.1) K/mcL RBC (4.19-5.50) M/mcL Hgb (12.9-16.9) g/dL Hct (37.5-50.1) % MCV (83.0-100.0) fL MCH (28.0-33.3) pg MCHC (31.6-35.5) g/dL RDW (11.5-14.5) % Plt Count (140-400) K/mcL MPV (9.4-12.4) fL Immature Gran % (0-4) % Seg Neutrophils % % Lymphocytes % % Monocytes % % Eosinophils % % Basophils % % Neutrophils # (1.6-8.9) K/mcL Lymphocytes # (0.6-4.6) K/mcL Monocytes # (0.0-1.3) K/mcL Eosinophils # (0.0-0.6) K/mcL Basophils # (0.0-0.2) K/mcL VBG pH 7.39 (7.32-7.42) pH Units VBG pCO2 41 (41-51) mmHg VBG pO2 47 H (25-40) mmHg VBG HCO3 24.8 (21-27) mEq/L Sodium 131 L (136-145) mEq/L Potassium 3.8 (3.5-4.5) mEq/L Chloride 97 L (98-109) mEq/L Carbon Dioxide 22 (19-29) mEq/L BUN 8 (8-26) mg/dL Creatinine 0.89 (0.72-1.25) mg/dL Est GFR ( Amer) > 60 (> 60) Est GFR (Non-Af Amer) > 60 (> 60) BUN/Creatinine Ratio 9 (6-26) Glucose 532 H* (70-99) mg/dL POC Glucose (58-89) Est Mean Plasma Glucose 349 mg/dl Hemoglobin A1c 13.8 H ( - 5.6) % Calculated Osmolality 294 (280-300) Calcium 9.2 (8.6-10.8) mg/dL Phosphorus 3.4 (2.3-4.7) mg/dL Magnesium 1.5 L (1.6-2.6) mg/dL Total Bilirubin 0.6 (0.2-1.2) mg/dL AST 98 H (5-34) Units/L ALT 73 H (0-55) Units/L Alkaline Phosphatase 144 H (38-126) Units/L Serum Total Protein 8.2 (6.0-8.3) g/dL Albumin 3.0 L (3.5-5.0) g/dL Globulin 5.2 H (2.4-3.5) g/dL Albumin/Globulin Ratio 0.6 L (1.1-2.2) Beta-Hydroxybutyric Acd 0.67 H (0.02-0.27) mmol/L
[2016-11-10] MEDS ORDERED: Insulin Human Regular 10 UNIT in 0.9 % Sodium Chloride 10 ML IV ONE (09:54)
[2016-11-10 09:55] LABS: Basophils # 0.1 K/mcL (0.0-0.2); Basophils % 0.6 %; Eosinophils # 0.2 K/mcL (0.0-0.6); Eosinophils % 1.9 %; Hematocrit 50.5 % (37.5-50.1); Hemoglobin 16.6 g/dL (12.9-16.9); Immature Granulocytes % 0.3 % (0-4); Lymphocytes # 2.1 K/mcL (0.6-4.6); Lymphocytes % 23.8 %; Mean Corpuscular HGB Conc 32.9 g/dL (31.6-35.5); Mean Corpuscular Hemoglobin 30.3 pg (28.0-33.3); Mean Corpuscular Volume 92.2 fL (83.0-100.0); Mean Platelet Volume 10.4 fL (9.4-12.4); Monocytes # 0.6 K/mcL (0.0-1.3); Monocytes % 6.6 %; Platelet Count 251 K/mcL (140-400); Red Blood Count 5.48 M/mcL (4.19-5.50); Red Cell Distribution Width 14.6 % (11.5-14.5); Segmented Neutrophils % 66.8 %
[2016-11-10 09:58] LABS: VBG HCO3 24.8 mEq/L (21-27); VBG PH 7.39 pH Units (7.32-7.42)
[2016-11-10] MEDS ORDERED: Ondansetron 4 MG/2 ML VIAL IVP ONE (09:59)
[2016-11-10] MEDS ORDERED: *HR* Morphine 2 MG/ML SYRINGE IVP ONE (09:59)
[2016-11-10 10:04] LABS: Beta-Hydroxybutyric Acid 0.67 mmol/L (0.02-0.27)
[2016-11-10 10:06] LABS: Hemoglobin A1C 13.8 %
[2016-11-10] MEDS: 0.9 % Sodium Chloride 1,000 ML IVC SCH ×4 (10:07→20:36)
[2016-11-10 10:09] LABS: Alanine Aminotransferase 73 Units/L (0-55); Albumin/Globulin Ratio 0.6 (1.1-2.2); Alkaline Phosphatase 144 Units/L (38-126); Aspartate Amino Transferase 98 Units/L (5-34); BUN/Creatinine Ratio 9 (6-26); Bilirubin,Total 0.6 mg/dL (0.2-1.2); Blood Urea Nitrogen 8 mg/dL (8-26); Calcium 9.2 mg/dL (8.6-10.8); Carbon Dioxide 22 mEq/L (19-29); Chloride 97 mEq/L (98-109); Globulin 5.2 g/dL (2.4-3.5); Magnesium 1.5 mg/dL (1.6-2.6); Osmolality,Calculated 294 (280-300); Phosphorous 3.4 mg/dL (2.3-4.7); Potassium 3.8 mEq/L (3.5-4.5); Sodium 131 mEq/L (136-145); Total Protein 8.2 g/dL (6.0-8.3); eGFR For African Americans > 60 (> 60); eGFR For Non-African Americans > 60 (> 60)
[2016-11-10 10:13] LABS: Glucose 532 mg/dL (70-99)
[2016-11-10] MEDS ORDERED: Insulin DETEMIR 100 UNIT/ML X5UNITS SQ ONE (10:33)
[2016-11-10] MEDS ORDERED: *HR* Dextrose 50 % in Water (Syg) 50 ML SYRINGE IVP PRN (12:41)
[2016-11-10] MEDS ORDERED: D5% in Water 1,000 ML IVC PRN (12:41)
[2016-11-10] MEDS ORDERED: Dextrose Gel 15 GM PO PRN ×2 (12:41)
[2016-11-10] MEDS ORDERED: Magnesium Sulfate 2 GM in D5% in Water 100 ML IVPB ONE (12:43)
--- NOTE | 2016-11-10 12:47 | Event Note ---
Date of Encounter: 11/10/16 Time of Encounter: 12:44 Patient seen and examined with nurse practitioner. Agree with assessment and plan. Patients present with symptoms and signs of hyperglycemia. He has polyuria. Has u urinal at bedside at home because he urinates at least 10 times at night. About 30 lbs weight loss past month...etc. Hyperglycemic hyperosmolar state. No DKA. Hydration. Patient hemoglobin A-1 C is 13 and at this level he will need to be on insulin therapy. Start the patient on Lantus 10 units daily in addition to 3 units of premeal insulin TID. See insulin requirements on in- hospital and discharge on insulin therapy. marketing traffic coordinator to see the patient. Patient had a fall off a [place] at home and hit his head. Will get the CT scan of the head to rule out any intracranial bleeding. Tetanus shot will be given for superficial injuries related to the fall. Full code.
[2016-11-10] MEDS ORDERED: *HR* OxyCODONE/APAP 10/325 TABLET PO ONE (13:10)
[2016-11-10] MEDS ORDERED: Naloxone 0.4 MG/ML INJ IVP PRN (13:13)
[2016-11-10] MEDS ORDERED: Ondansetron 4 MG/2 ML VIAL IVP PRN (13:13)
[2016-11-10] MEDS ORDERED: Tdap (Boostrix) Vaccine 0.5 ML SYRINGE IM ONE (13:18)
--- NOTE | 2016-11-10 13:33 | Internal Med History&Physical ---
Date of Encounter: 11/10/16 Time of Encounter: 13:30 Assessment and Plan (1) Hyperglycemia Current visit: Yes Status: Acute Patient's blood sugar 532, Hgb A1c >13. He has not been taking his metformin. 10u IV insulin and 10u SQ insulin given in ED will start levemir 10u HS and 3u lispro TIDWM plus sliding scale. Will assess his insulin requirements and adjust as needed. telehealth nurse educator consulted. (2) Fall Current visit: Yes Status: Acute Patient fell off his porch yesterday. Reports he hit his head, but denies any headache or loss of consciousness. Has scraps on left arm and left leg. CT head. Tdap booster. Qualifiers: Encounter type: initial encounter Qualified Code(s): W19.XXXA - Unspecified fall, initial encounter (3) Chronic pain Current visit: No Status: Chronic Patient with chronic pain related to old right leg injury and surgery. Continue home dose of oxycodone-acetaminaphen. Qualifiers: Chronic pain type: chronic pain syndrome Qualified Code(s): G89.4 - Chronic pain syndrome (4) Tobacco abuse Current visit: No Status: Chronic Discussed smoking cessation, patient not ready to quit. Smoking cessation education ordered. Nicotine patch ordered. (5) JAC (obstructive sleep apnea) Current visit: No Status: Acute CPAP ordered for overnight. (6) Type 2 diabetes mellitus Current visit: Yes Status: Acute Uncontrolled as evidenced by A1c > 13. Diabetic diet. will start levemir 10u HS and 3u lispro TIDWM plus sliding scale. Will assess his insulin requirements and adjust as needed. hypoglycemic protocol. 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 Norris is a 46 year old male , depression, chronic pain who presented to the emergency department today with complaints of blurry vision, dizziness, status post fall yesterday. Patient reports that he has been having dizziness and blurry vision, as well as frequent urination and thirst for the last couple weeks worsening over the last couple of days. He was on his porch yesterday and fell due to his dizziness and scraped up his arm and leg and is reporting pain in his right shoulder. He reports he hit his head. Patient reports headaches, nausea, vomiting, constipation, chronic cough. He denies fever, chills, sweats, chest pain, palpitations, shortness of breath. He did present to an outside hospital emergency room yesterday and was advised to be admitted due to elevated blood sugars, the patient had to go home to take care of his dog 's. Today's blood sugar is 532 and his hemoglobin A1c is over 13. He is given 10 units of insulin subcutaneous as well as 10 units IV in the ER as well as 2 L fluid bolus on exam, patient is alert and oriented, in no acute distress, complaining of his chronic pain and requesting his pain medication. Heart has regular rate and rhythm lungs are clear bilaterally to auscultation. Past Med Surg Social Fam HX - Past Medical History Medical history: diabetes, hypertension, other Psychiatric history: prior suicide attempt, schizophrenia, previous psychiatric hospitalization, other - Past Surgical History Surgical History: orthopedic, other, other - Social History Smoking Status: Current every day smoker Packs per day: 1 Smokeless Tobacco Status: No Alcohol use: none Drug use: none - Family History Mother Living Status: Age at : 71 Hx Family Cardiac Disorders: Yes Hx Family Endocrine Disorder: Yes (DM) Internal Medicine - H&P: Meds Amoxicillin/Clavulanate [Augmentin] 875 mg PO BID 08/15/16 [History] Clindamycin [Cleocin] 300 mg PO Q8H 08/15/16 [History] HydrOXYzine Pamoate [Vistaril] 25 mg PO Q8H PRN 08/15/16 [History] Blood Sugar Diagnostic [Test Strips] 1 each MC DAILY #100 strip 08/16/16 [Rx] Blood-Glucose Meter [Freestyle Precision Alfredo Meter] 1 each MC DAILY #1 each [Rx] Furosemide [Lasix] 20 mg PO DAILY #30 tablet 08/16/16 [Rx] Ibuprofen [Motrin] 800 mg PO Q8HR PRN #30 tablet 08/16/16 [Rx] Lancets 1 each MC DAILY #100 each 08/16/16 [Rx] Nicotine Patch [Nicoderm] 21 mg TD DAILY #30 patch.td24 08/16/16 [Rx] metFORMIN [Glucophage] 500 mg PO BIDWM #60 tablet 08/16/16 [Rx] Doxycycline 100 mg PO BID #20 capsule 08/31/16 [Rx] OxyCODONE/APAP 5/325 [Percocet 5/325 MG] 1 each PO Q6HR PRN #10 tablet 09/25/16 [Rx] Allergies aspirin [ASA] Allergy (Verified 10/16/16 22:39) Swelling of Lip/Tongue/Throat All Systems PM: A 10-system review of systems was performed and is negative for pertinent findings except as documented above in the HPI. - Constitutional Constitutional: no chills, no fever(s), no night sweats - EENT Eyes: blurry vision, no change in vision, no discharge, no pain, no photophobia Ears: no ear discharge, no ear pain, no tinnitus Nose, mouth and throat: no dysphagia, no nasal discharge, no neck pain, no sore throat - Cardiovascular Cardiovascular ROS IM: no chest pain, no diaphoresis, no dyspnea, no lightheadedness, no palpitations, no syncope - Respiratory Respiratory: cough, no dyspnea, no wheezing, no excessive phlegm production - Gastrointestinal Gastrointestinal: no abdominal pain, no diarrhea, no hematemesis, no hematochezia, no melena, no nausea, no vomiting - Musculoskeletal Musculoskeletal ROS IM: no numbness, no tingling - Integumentary Integumentary IM: no rash, no unusual bruising - Neurological Neurological ROS: dizziness, no confusion, no convulsions, no focal weakness, no numbness, no tingling, no tremor(s) - Endocrine Endocrine IM: polydipsia, polyuria - Hematologic/Lymphatic Hematologic/Lymphatic: no easy bruising - Constitutional Vitals: Temp Pulse Resp BP Pulse Ox 97.5 F L 90 19 132/84 93 11/10/16 12:15 11/10/16 12:15 11/10/16 12:15 11/10/16 12:15 11/10/16 12:15 General appearance: Present: A&O X 3, pleasant, no acute distress - Head Head exam: Present: atraumatic, normocephalic - Eye Eye exam: Present: PERRL, conjuntiva pink, sclera anicteric Pupils: Present: PERRL - Neck Neck exam general surgery: Present: supple, trachea midline. Absent: lymphadenopathy - Respiratory Respiratory exam: Present: CTAB. Absent: accessory muscle use, rales, rhonchi, wheezes - Cardiovascular Cardiovascular exam: Present: RRR, +S1, +S2. Absent: diastolic murmur, gallop, rubs, systolic murmur - GI/Abdominal GI/Abdominal exam: Present: normal bowel sounds, soft, no peritoneal signs. Absent: distended, tenderness - Extremities Exam Extremities exam: Present: warm, radial pulses palpable and symetrical. Absent : calf tenderness, cyanotic, pedal edema - Neurological Exam Neurological exam: Present: CN II-XII intact, oriented X3, no focal deficits. Absent: pronater drift, facial droop, speech deficit - Skin Skin exam: Present: dry, intact Internal Med - H&P Results - Labs CBC & Chem 7: 11/10/16 09:47 11/10/16 09:47 Labs: All Lab Results (24 Hours) 11/10/16 11/10/16 11/10/16 Range/Units 09:22 09:24 09:47 WBC 8.9 (4.3-11.1) K/mcL RBC 5.48 (4.19-5.50) M/mcL Hgb 16.6 (12.9-16.9) g/dL Hct 50.5 H (37.5-50.1) % MCV 92.2 (83.0-100.0) fL MCH 30.3 (28.0-33.3) pg MCHC 32.9 (31.6-35.5) g/dL RDW 14.6 H (11.5-14.5) % Plt Count 251 (140-400) K/mcL MPV 10.4 (9.4-12.4) fL Immature Gran % 0.3 (0-4) % Seg Neutrophils % 66.8 % Lymphocytes % 23.8 % Monocytes % 6.6 % Eosinophils % 1.9 % Basophils % 0.6 % Neutrophils # 6.0 (1.6-8.9) K/mcL Lymphocytes # 2.1 (0.6-4.6) K/mcL Monocytes # 0.6 (0.0-1.3) K/mcL Eosinophils # 0.2 (0.0-0.6) K/mcL Basophils # 0.1 (0.0-0.2) K/mcL VBG pH (7.32-7.42) pH Units VBG pCO2 (41-51) mmHg VBG pO2 (25-40) mmHg VBG HCO3 (21-27) mEq/L Sodium (136-145) mEq/L Potassium (3.5-4.5) mEq/L Chloride (98-109) mEq/L Carbon Dioxide (19-29) mEq/L BUN (8-26) mg/dL Creatinine (0.72-1.25) mg/dL Est GFR ( Amer) (> 60) Est GFR (Non-Af Amer) (> 60) BUN/Creatinine Ratio (6-26) Glucose (70-99) mg/dL POC Glucose 475 H* 440 H* (58-89) Est Mean Plasma Glucose mg/dl Hemoglobin A1c ( - 5.6) % Calculated Osmolality (280-300) Calcium (8.6-10.8) mg/dL Phosphorus (2.3-4.7) mg/dL Magnesium (1.6-2.6) mg/dL Total Bilirubin (0.2-1.2) mg/dL AST (5-34) Units/L ALT (0-55) Units/L Alkaline Phosphatase (38-126) Units/L Serum Total Protein (6.0-8.3) g/dL Albumin (3.5-5.0) g/dL Globulin (2.4-3.5) g/dL Albumin/Globulin Ratio (1.1-2.2) Beta-Hydroxybutyric Acd (0.02-0.27) mmol/L 11/10/16 11/10/16 11/10/16 Range/Units 09:47 09:47 09:47 WBC (4.3-11.1) K/mcL RBC (4.19-5.50) M/mcL Hgb (12.9-16.9) g/dL Hct (37.5-50.1) % MCV (83.0-100.0) fL MCH (28.0-33.3) pg MCHC (31.6-35.5) g/dL RDW (11.5-14.5) % Plt Count (140-400) K/mcL MPV (9.4-12.4) fL Immature Gran % (0-4) % Seg Neutrophils % % Lymphocytes % % Monocytes % % Eosinophils % % Basophils % % Neutrophils # (1.6-8.9) K/mcL Lymphocytes # (0.6-4.6) K/mcL Monocytes # (0.0-1.3) K/mcL Eosinophils # (0.0-0.6) K/mcL Basophils # (0.0-0.2) K/mcL VBG pH 7.39 (7.32-7.42) pH Units VBG pCO2 41 (41-51) mmHg VBG pO2 47 H (25-40) mmHg VBG HCO3 24.8 (21-27) mEq/L Sodium 131 L (136-145) mEq/L Potassium 3.8 (3.5-4.5) mEq/L Chloride 97 L (98-109) mEq/L Carbon Dioxide 22 (19-29) mEq/L BUN 8 (8-26) mg/dL Creatinine 0.89 (0.72-1.25) mg/dL Est GFR ( Amer) > 60 (> 60) Est GFR (Non-Af Amer) > 60 (> 60) BUN/Creatinine Ratio 9 (6-26) Glucose 532 H* (70-99) mg/dL POC Glucose (58-89) Est Mean Plasma Glucose 349 mg/dl Hemoglobin A1c 13.8 H ( - 5.6) % Calculated Osmolality 294 (280-300) Calcium 9.2 (8.6-10.8) mg/dL Phosphorus 3.4 (2.3-4.7) mg/dL Magnesium 1.5 L (1.6-2.6) mg/dL Total Bilirubin 0.6 (0.2-1.2) mg/dL AST 98 H (5-34) Units/L ALT 73 H (0-55) Units/L Alkaline Phosphatase 144 H (38-126) Units/L Serum Total Protein 8.2 (6.0-8.3) g/dL Albumin 3.0 L (3.5-5.0) g/dL Globulin 5.2 H (2.4-3.5) g/dL Albumin/Globulin Ratio 0.6 L (1.1-2.2) Beta-Hydroxybutyric Acd 0.67 H (0.02-0.27) mmol/L
[2016-11-10] MEDS: Nicotine 21 MG PATCH.TD24 TD SCH (13:42)
[2016-11-10] MEDS ORDERED: Insulin LISPRO 300 UNITS/3 ML VIAL SQ SCH (16:00)
[2016-11-10] MEDS: *HR* OxyCODONE/APAP 5/325 TABLET PO PRN ×2 (17:48→23:51)
[2016-11-10] MEDS: Insulin LISPRO 300 UNITS/3 ML VIAL SQ SCH ×3 (17:49→20:35)
[2016-11-10] MEDS ORDERED: hydrOXYzine pamoate 25 MG CAPSULE PO PRN (20:14)
[2016-11-10] MEDS: Neosporin OINT 15 GM TUBE TP SCH (20:38)
[2016-11-10] MEDS: Gabapentin 300 MG CAPSULE PO SCH (20:45)
[2016-11-10] MEDS ORDERED: Insulin DETEMIR 100 UNIT/ML X5UNITS SQ SCH (21:00)
[2016-11-10 22:38] LABS: Bilirubin,Urine Negative (Negative); Blood,Urine Negative (Negative); Clarity,Urine Clear (Clear); Color,Urine Yellow (Yellow); Glucose,Urine (UA) >=1000 mg/dL (Normal); Ketones,Urine Negative (Negative); Leukocyte Esterase,Urine Negative (Negative); Nitrite,Urine Negative (Negative); Protein,Urine Negative (Neg-Trace); Specific Gravity,Urine > 1.030 (1.010-1.025); Urobilinogen,Urine Normal (Normal)
[2016-11-11] MEDS: 0.9 % Sodium Chloride 1,000 ML IVC SCH (02:55)
[2016-11-11 05:46] LABS: BUN/Creatinine Ratio 7 (6-26); Calcium 8.1 mg/dL (8.6-10.8); Carbon Dioxide 21 mEq/L (19-29); Chloride 100 mEq/L (98-109); Glucose 258 mg/dL (70-99); Osmolality,Calculated 278 (280-300); Potassium 3.7 mEq/L (3.5-4.5); Sodium 131 mEq/L (136-145); eGFR For African Americans > 60 (> 60); eGFR For Non-African Americans > 60 (> 60)
[2016-11-11 05:47] LABS: Blood Urea Nitrogen 5 mg/dL (8-26)
[2016-11-11 05:54] LABS: Basophils # 0.1 K/mcL (0.0-0.2); Basophils % 0.9 %; Eosinophils # 0.3 K/mcL (0.0-0.6); Eosinophils % 2.8 %; Hematocrit 46.6 % (37.5-50.1); Hemoglobin 15.3 g/dL (12.9-16.9); Immature Granulocytes % 0.2 % (0-4); Lymphocytes # 2.6 K/mcL (0.6-4.6); Lymphocytes % 28.1 %; Mean Corpuscular HGB Conc 32.8 g/dL (31.6-35.5); Mean Corpuscular Hemoglobin 30.7 pg (28.0-33.3); Mean Corpuscular Volume 93.4 fL (83.0-100.0); Mean Platelet Volume 10.9 fL (9.4-12.4); Monocytes # 0.6 K/mcL (0.0-1.3); Monocytes % 6.8 %; Neutrophils # 5.7 K/mcL (1.6-8.9); Platelet Count 203 K/mcL (140-400); Red Blood Count 4.99 M/mcL (4.19-5.50); Red Cell Distribution Width 14.6 % (11.5-14.5); Segmented Neutrophils % 61.2 %
[2016-11-11] MEDS: *HR* OxyCODONE/APAP 5/325 TABLET PO PRN ×3 (06:07→18:47)
[2016-11-11] MEDS: *HR* Enoxaparin 40 MG/0.4 ML SYRINGE SQ SCH (06:07)
[2016-11-11] MEDS: Insulin LISPRO 300 UNITS/3 ML VIAL SQ SCH ×6 (07:56→20:52)
[2016-11-11] MEDS: Nicotine 21 MG PATCH.TD24 TD SCH (07:58)
[2016-11-11] MEDS: Gabapentin 300 MG CAPSULE PO SCH ×2 (07:58→20:52)
[2016-11-11] MEDS ORDERED: Insulin LISPRO 300 UNITS/3 ML VIAL SQ SCH (08:06)
[2016-11-11] MEDS: Neosporin OINT 15 GM TUBE TP SCH ×2 (08:07→20:53)
[2016-11-11 08:36] LABS: Bilirubin,Direct 0.3 mg/dL (0.0-0.5); Bilirubin,Total 0.7 mg/dL (0.2-1.2); Magnesium 1.8 mg/dL (1.6-2.6)
[2016-11-11 08:37] LABS: Alanine Aminotransferase 75 Units/L (0-55); Albumin 2.7 g/dL (3.5-5.0); Alkaline Phosphatase 126 Units/L (38-126); Aspartate Amino Transferase 132 Units/L (5-34); Bilirubin,Indirect 0.4 mg/dL (0.0-1.2)
[2016-11-11 09:02] LABS: Albumin/Globulin Ratio 0.6 (1.1-2.2); Globulin 4.7 g/dL (2.4-3.5); Total Protein 7.4 g/dL (6.0-8.3)
--- NOTE | 2016-11-11 10:06 | Discharge Summary ---
Date of Encounter: 11/11/16 Time of Encounter: 10:06 - Discharge Medications Home Medications: Furosemide [Lasix] 20 mg PO DAILY #30 tablet 08/16/16 [Rx] Ibuprofen [Motrin] 800 mg PO Q8HR PRN #30 tablet 08/16/16 [Rx] metFORMIN [Glucophage] 500 mg PO BIDWM #60 tablet 08/16/16 [Rx] Gabapentin [Neurontin] 300 mg PO BID 11/10/16 [History] Magic Mouthwash 5 - 10 ml PO TID PRN 11/10/16 [History] hydrOXYzine pamoate [HydrOXYzine Pamoate] 25 mg PO Q8H PRN 11/10/16 [History] Allergies/Adverse Reactions: Allergies aspirin [ASA] Allergy (Verified 10/16/16 22:39) Swelling of Lip/Tongue/Throat Procedures/tests Complete & Pending: Procedures Performed prior 72 hours Category Date Time Status CT head/brain wo con [CT] Stat Cat Scan 11/10/16 12:45 Completed US liver [US] Stat Exams 11/11/16 08:29 Ordered Date of admission: 11/10/16 11:39 Primary care physician: Erika Stoddard DO Consults: 11/10/16 12:45 Consult to Relief Charge Nurse [CONS] Routine Comment: Reason for Consult: Patient noncompliant with oral medications, Diabetes uncontrolled with A1c of 13, now in need of insulin - Patient Status Condition: Good - Discharge Instructions Follow Up With: David Flood DO [Resident] - 11/18/16 4:00 pm Hospital course: Mr. Norris is a 46 year old male - Time Spent with Patient Total time spent providing and/or coordinating discharge services: - Constitutional Vitals: Temp Pulse Resp BP Pulse Ox 97.9 F 89 18 115/79 94 11/11/16 07:51 11/11/16 07:51 11/11/16 07:51 11/11/16 07:51 11/11/16 07:51 General appearance: Present: A&O X 3, morbidly obese, pleasant, no acute distress - Head Head exam: Present: atraumatic, normocephalic - Eye Eye exam: Present: PERRL, conjuntiva pink, sclera anicteric Pupils: Present: PERRL - Neck Neck exam general surgery: Present: supple, trachea midline. Absent: lymphadenopathy - Respiratory Respiratory exam: Present: CTAB. Absent: accessory muscle use, rales, rhonchi, wheezes - Cardiovascular Cardiovascular exam: Present: RRR, +S1, +S2. Absent: diastolic murmur, gallop, rubs, systolic murmur - GI/Abdominal GI/Abdominal exam: Present: normal bowel sounds, soft, no peritoneal signs. Absent: distended, tenderness - Extremities Exam Extremities exam: Present: warm, radial pulses palpable and symetrical. Absent : calf tenderness, cyanotic, pedal edema - Neurological Exam Neurological exam: Present: alert, CN II-XII intact, oriented X3, no focal deficits. Absent: pronater drift, facial droop, speech deficit - Skin Skin exam: Present: dry, intact - VTE Documentation of Mechanical Device: Graduated compression elastic hosiery
--- NOTE | 2016-11-11 14:55 | Internal Med Progress Note ---
Date of Encounter: 11/11/16 Time of Encounter: 10:00 - Assessment and plan (1) Morbid obesity with BMI of 40.0-44.9, adult Current Visit: Yes Status: Chronic Assessment and plan: Lifestyle modification (2) Tobacco abuse Current Visit: Yes Status: Chronic Assessment and plan: 3 minutes spent on tobacco cessation counselling (3) Drug-seeking behavior Current Visit: Yes Status: Acute Assessment and plan: Patient is fixated on obtaining opiates and keeps interrupting physician while being educated about his diabetes control Patient will follow up with PCP and pain management upon discharge (4) Fall Current Visit: Yes Status: Acute Assessment and plan: Secondary to dizziness from hyperglycemia Stable Qualifiers: Encounter type: initial encounter Qualified Code(s): W19.XXXA - Unspecified fall, initial encounter (5) Diabetes mellitus with hyperglycemia Current Visit: Yes Status: Acute Assessment and plan: Due to non-compliance Educated extensively on medication and dietary compliance Continue insulin Anticipate d/c a.m depending on clinical course Qualifiers: Diabetes mellitus type: type 2 Diabetes mellitus prison insulin use: without ferry terminal agent use Qualified Code(s): E11.65 - Type 2 diabetes mellitus with hyperglycemia (6) Transaminitis Current Visit: Yes Status: Acute Assessment and plan: Monitor LFT Suspect hepatic steatosis Obtain lipid panel and Liver USS - Subjective Interval history: 46 M with PMH of Obesity and DM, chronic pain Admitted to observation and being managed for fall and hyperglycemia FS has improved on insulin but still in the mid-200s A1C >13 Patient endorses non-compliance with medications for >1 month he is fixated on getting pain medications Chart review reveals transaminitis, will check LIver USS, suspect fatty liver Awaiting DM educator review and Liver USS - Constitutional Vitals: Temp Pulse Resp BP Pulse Ox 98.0 F 87 18 124/84 90 11/11/16 11:24 11/11/16 11:24 11/11/16 11:24 11/11/16 11:24 11/11/16 11:24 General appearance: Present: A&O X 3, morbidly obese, pleasant, no acute distress - Head Head exam: Present: atraumatic, normocephalic - Eye Eye exam: Present: PERRL, conjuntiva pink, sclera anicteric Pupils: Present: PERRL - Neck Neck exam general surgery: Present: supple, trachea midline. Absent: lymphadenopathy - Respiratory Respiratory exam: Present: CTAB. Absent: accessory muscle use, rales, rhonchi, wheezes - Cardiovascular Cardiovascular exam: Present: RRR, +S1, +S2. Absent: diastolic murmur, gallop, rubs, systolic murmur - GI/Abdominal GI/Abdominal exam: Present: normal bowel sounds, soft, no peritoneal signs. Absent: distended, tenderness - Extremities Exam Extremities exam: Present: warm, radial pulses palpable and symetrical. Absent : calf tenderness, cyanotic, pedal edema - Neurological Exam Neurological exam: Present: alert, CN II-XII intact, oriented X3, no focal deficits. Absent: pronater drift, facial droop, speech deficit - Skin Skin exam: Present: dry, intact Internal Medicine: Result - Labs CBC & Chem 7: 11/11/16 04:27 11/11/16 04:27 Labs: Short CBC 11/11/16 Range/Units 04:27 WBC 9.3 (4.3-11.1) K/mcL Hgb 15.3 (12.9-16.9) g/dL Hct 46.6 (37.5-50.1) % Plt Count 203 (140-400) K/mcL Neutrophils # 5.7 (1.6-8.9) K/mcL BMP 11/11/16 04:27 Sodium 131 L Potassium 3.7 Chloride 100 Carbon Dioxide 21 BUN 5 L Creatinine 0.70 L Glucose 258 H Calcium 8.1 L Liver Function 11/11/16 Range/Units 04:27 Total Bilirubin 0.7 (0.2-1.2) mg/dL Direct Bilirubin 0.3 (0.0-0.5) mg/dL AST 132 H (5-34) Units/L ALT 75 H (0-55) Units/L Alkaline Phosphatase 126 (38-126) Units/L Albumin 2.7 L (3.5-5.0) g/dL Urine 11/10/16 Range/Units 22:20 Urine Color Yellow (Yellow) Urine Clarity Clear (Clear) Urine pH 6.0 (5.0-8.0) pH Units Ur Specific [place] > 1.030 H (1.010-1.025) Urine Protein Negative (Neg-Trace) mg/dL Urine Glucose (UA) >=1000 H (Normal) mg/dL - VTE Documentation of Mechanical Device: Graduated compression elastic hosiery Consult Discharge Plan - Plan Referrals: David Flood DO [Resident] - 11/18/16 4:00 pm
[2016-11-11 20:52] LABS: Chol/HDL Ratio 7.7 (0-4.9); Cholesterol 215 mg/dL (< 200); HDL Cholesterol 28 mg/dL (40-59); Triglycerides 454 mg/dL (< 150)
[2016-11-11] MEDS ORDERED: Insulin DETEMIR 100 UNIT/ML X5UNITS SQ SCH (21:00)
[2016-11-12] MEDS: *HR* OxyCODONE/APAP 5/325 TABLET PO PRN ×2 (03:41→10:00)
[2016-11-12 05:31] LABS: Chol/HDL Ratio 8.1 (0-4.9); Cholesterol 218 mg/dL (< 200); HDL Cholesterol 27 mg/dL (40-59); Triglycerides 405 mg/dL (< 150)
[2016-11-12] MEDS: *HR* Enoxaparin 40 MG/0.4 ML SYRINGE SQ SCH (06:11)
[2016-11-12 06:39] VITALS: BP 122/84
--- NOTE | 2016-11-12 07:48 | Discharge Summary ---
Date of Encounter: 11/12/16 Time of Encounter: 07:47 - Discharge Diagnosis (1) Morbid obesity with BMI of 40.0-44.9, adult Priority: Primary Status: Chronic (2) Tobacco abuse Priority: Secondary Status: Chronic (3) Drug-seeking behavior Priority: Secondary Status: Chronic (4) Fall Priority: Primary Status: Acute Qualifiers: Encounter type: initial encounter Qualified Code(s): W19.XXXA - Unspecified fall, initial encounter (5) Diabetes mellitus with hyperglycemia Priority: Primary Status: Acute Qualifiers: Diabetes mellitus type: type 2 Diabetes mellitus [facility] insulin use: without rodent exterminator use Qualified Code(s): E11.65 - Type 2 diabetes mellitus with hyperglycemia (6) Transaminitis Priority: Primary Status: Acute (7) Hepatic steatosis Priority: Secondary Status: Chronic (8) Hyperlipidemia Priority: Secondary Status: Chronic Qualifiers: Hyperlipidemia type: unspecified Qualified Code(s): E78.5 - Hyperlipidemia , unspecified - Discharge Medications Prescriptions: Atorvastatin [Lipitor] 20 mg PO HS #30 tablet Blood Sugar Diagnostic [Glucose Test Strip] 1 each MC TID #90 strip Blood-Glucose Meter [Contour Next One] 1 each MC DAILY #1 kit Dextrose/Maltodextrin [Glucose Powder Packets] 1 each PO DAILY PRN #10 powd.pack PRN Reason: Hypoglycemia Gabapentin [Neurontin] 300 mg PO BID #60 capsule Insulin Glargine [Lantus] 10 unit SQ HS #2 vial Insulin LISPRO [HumaLOG] 8 units SQ TIDWM #2 vial Lancing Device/Lancets [Gs Lancing Device and Lancets] 1 each MC TID #90 kit metFORMIN [Glucophage] 850 mg PO BIDWM #60 tablet Nicotine Patch [Nicoderm] 21 mg TD DAILY #15 patch.td24 Syrge-Ndl,Ins 0.3 ml Half Jey [Insulin Syringe] 1 each MC QID #120 disp.syrin Home Medications: Furosemide [Lasix] 20 mg PO DAILY #30 tablet 08/16/16 [Rx] Ibuprofen [Motrin] 800 mg PO Q8HR PRN #30 tablet 08/16/16 [Rx] Magic Mouthwash 5 - 10 ml PO TID PRN 11/10/16 [History] hydrOXYzine pamoate [HydrOXYzine Pamoate] 25 mg PO Q8H PRN 11/10/16 [History] Atorvastatin [Lipitor] 20 mg PO HS #30 tablet 11/12/16 [Rx] Blood Sugar Diagnostic [Glucose Test Strip] 1 each TID #90 strip 11/12/16 [Rx ] Blood-Glucose Meter [Contour Next One] 1 each MC DAILY #1 kit 11/12/16 [Rx] Dextrose/Maltodextrin [Glucose Powder Packets] 1 each PO DAILY PRN #10 powd.pack 11/12/16 [Rx] Gabapentin [Neurontin] 300 mg PO BID #60 capsule 11/12/16 [Rx] Insulin Glargine [Lantus] 10 unit SQ HS #2 vial 11/12/16 [Rx] Insulin LISPRO [HumaLOG] 8 units SQ TIDWM #2 vial 11/12/16 [Rx] Lancing Device/Lancets [Gs Lancing Device and Lancets] 1 each MC TID #90 kit [Rx] Nicotine Patch [Nicoderm] 21 mg TD DAILY #15 patch.td24 11/12/16 [Rx] Syrge-Ndl,Ins 0.3 ml Half Jey [Insulin Syringe] 1 each QID #120 disp.syrin 11/12/16 [Rx] metFORMIN [Glucophage] 850 mg PO BIDWM #60 tablet 11/12/16 [Rx] Allergies/Adverse Reactions: Allergies aspirin [ASA] Allergy (Verified 10/16/16 22:39) Swelling of Lip/Tongue/Throat Procedures/tests Complete & Pending: Procedures Performed prior 72 hours Category Date Time Status CT head/brain wo con [CT] Stat Cat Scan 11/10/16 12:45 Completed US liver [US] Stat Exams 11/11/16 15:30 Completed Date of admission: 11/10/16 11:39 Primary care physician: Erika Stoddard DO Consults: 11/10/16 12:45 Consult to [employer] [CONS] Routine Comment: Reason for Consult: Patient noncompliant with oral medications, Diabetes uncontrolled with A1c of 13, now in need of insulin Discharging clinician: Josr Masters Anticipated date of discharge: 11/12/16 - Patient Status Disposition: Home, Self-Care Condition: Good Functional capacity at discharge: independent ambulation Overall status at discharge: patient is back to baseline - Discharge Instructions Instructions: Gabapentin (By mouth), Metformin (By mouth), Atorvastatin (By mouth), Dextrose (By mouth), Insulin Detemir (Injection), Insulin Lispro ( Injection), How to Check Your Blood Sugar (DC), Diabetic Hyperglycemia (DC) Follow Up With: David Flood DO [Resident] - 11/18/16 4:00 pm - Diet and Activity Activity: resume usual activities as tolerated Diet: diabetic diet, low fat, low cholesterol, low salt diet Interval History: See below Hospital course: Mr. Norris is a 46 year old male with medical history of diabetes mellitus morbid obesity, and chronic pain. the patient presented to the emergency as a referral from primary care doctor after complains of polyuria, polydipsia, dizziness and mechanical fall. the patient was referred to ER by his pcp due to extremely elevated blood sugars at the time of presentation. Patient endorsed not being compliant with his home medication for about a month prior to presentation On examination on admission patient is morbidly obese, without any specific systemic examination findings, he was clinically stable Workup revealed hyperglycemia with blood sugars greater than 600, kidney function was within normal , Venous blood gas with normal pH, slightly elevated beta hydroxybutyric acid, mild transaminitis on LFT Patient was admitted to observation for IVF hydration, Insulin therapy initiation and further work up His blood sugars have been improved to the 200s for the past 24 hrs Transamniitis was worked up and Liver USS showed hepatic steatoses, Lipid panel with elevated TG and total cholesterol Patient was educated by MD, in service educator and RN on his home insulin use He was educated on complications of uncontrolled DM, management of hypoglycemia and monitoring of his sugars at home His A1C was 13.8 He is stable to be discharged on lantus and lispro, home dose of metformin was increased to 850mg bid from 500mg bid, patient was given supplies for blood glucose monitoring Strongly encouraged to follow up with PCP Patient had drug-seeking behaviour throughout the admission 3 minutes spent on tobacco cessation, agreed with nicotine patch, discharged on same Time spent discussing smoking cessation with patient: 3 to 10 minutes - Time Spent with Patient Total time spent providing and/or coordinating discharge services: Less than 30 minutes - Constitutional Vitals: Temp Pulse Resp BP Pulse Ox 98.0 F 100 18 122/84 95 11/12/16 06:38 11/12/16 06:38 11/12/16 06:38 11/12/16 06:38 11/12/16 07:40 General appearance: Present: A&O X 3, morbidly obese, pleasant, no acute distress - Head Head exam: Present: atraumatic, normocephalic - Eye Eye exam: Present: PERRL, conjuntiva pink, sclera anicteric Pupils: Present: PERRL - Neck Neck exam general surgery: Present: supple, trachea midline. Absent: lymphadenopathy - Respiratory Respiratory exam: Present: CTAB. Absent: accessory muscle use, rales, rhonchi, wheezes - Cardiovascular Cardiovascular exam: Present: RRR, +S1, +S2. Absent: diastolic murmur, gallop, rubs, systolic murmur - GI/Abdominal GI/Abdominal exam: Present: normal bowel sounds, soft, no peritoneal signs. Absent: distended, tenderness - Extremities Exam Extremities exam: Present: warm, radial pulses palpable and symetrical. Absent : calf tenderness, cyanotic, pedal edema - Neurological Exam Neurological exam: Present: alert, CN II-XII intact, normal gait, oriented X3, no focal deficits. Absent: pronater drift, facial droop, speech deficit - Skin Skin exam: Present: dry, intact - VTE Documentation of Mechanical Device: Graduated compression elastic hosiery
[2016-11-12] MEDS: Nicotine 21 MG PATCH.TD24 TD SCH (08:27)
[2016-11-12] MEDS: Gabapentin 300 MG CAPSULE PO SCH (08:27)
[2016-11-12] MEDS: Insulin LISPRO 300 UNITS/3 ML VIAL SQ SCH ×2 (08:28→08:30)
[2016-11-12] MEDS: Neosporin OINT 15 GM TUBE TP SCH (10:01)
== END 2016-11-12 10:50 | disposition home or self-care (01) ==
LOC: EMEROO 09:08 → 3ANU 09:08
PROVIDERS: ADMIT Nurse Practitioner Family; ATTEND Internal Medicine

== ENCOUNTER 2016-12-20 13:54 | Inpatient (IN) ==
[2016-12-20] MEDS ORDERED: *HR* FentaNYL (PF) 100 MCG/2 ML VIAL IVP ONE (17:04)
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
[2016-12-20] MEDS ORDERED: Vancomycin 2,000 MG in D5% in Water 500 ML IVPB ONE (17:13)
[2016-12-20 17:48] LABS: Basophils # 0.1 K/mcL (0.0-0.2); Basophils % 0.4 %; Eosinophils # 0.3 K/mcL (0.0-0.6); Eosinophils % 2.7 %; Hematocrit 47.8 % (37.5-50.1); Hemoglobin 15.7 g/dL (12.9-16.9); Immature Granulocytes % 1.1 % (0-4); Lymphocytes # 2.2 K/mcL (0.6-4.6); Lymphocytes % 17.3 %; Mean Corpuscular HGB Conc 32.8 g/dL (31.6-35.5); Mean Corpuscular Hemoglobin 30.5 pg (28.0-33.3); Mean Corpuscular Volume 92.8 fL (83.0-100.0); Mean Platelet Volume 10.3 fL (9.4-12.4); Monocytes % 7.6 %; Neutrophils # 8.9 K/mcL (1.6-8.9); Platelet Count 257 K/mcL (140-400); Red Blood Count 5.15 M/mcL (4.19-5.50); Red Cell Distribution Width 13.7 % (11.5-14.5); Segmented Neutrophils % 70.9 %
[2016-12-20 17:59] LABS: BUN/Creatinine Ratio 6 (6-26); Calcium 9.1 mg/dL (8.6-10.8); Carbon Dioxide 26 mEq/L (19-29); Chloride 93 mEq/L (98-109); Glucose 337 mg/dL (70-99); Osmolality,Calculated 281 (280-300); Potassium 3.3 mEq/L (3.5-4.5); Sodium 130 mEq/L (136-145); eGFR For African Americans > 60 (> 60); eGFR For Non-African Americans > 60 (> 60)
[2016-12-20 18:02] LABS: Blood Urea Nitrogen 5 mg/dL (8-26)
[2016-12-20 18:55] LABS: INR 1.2; Prothrombin Time 12.5 Seconds (9.4-12.1)
[2016-12-20] MEDS ORDERED: *HR* HYDROmorphone (PF) 1 MG/ML SYRINGE IVP ONE (19:05)
[2016-12-20] MEDS ORDERED: Ondansetron 4 MG/2 ML VIAL IVP PRN (20:07)
[2016-12-20] MEDS ORDERED: Naloxone 0.4 MG/ML INJ IVP PRN (20:07)
[2016-12-20] MEDS ORDERED: Acetaminophen 325 MG TABLET PO PRN (20:07)
[2016-12-20] MEDS ORDERED: *HR* Dextrose 50 % in Water (Syg) 50 ML SYRINGE IVP PRN (20:12)
[2016-12-20] MEDS ORDERED: Dextrose Gel 15 GM PO PRN ×2 (20:12)
[2016-12-20] MEDS ORDERED: D5% in Water 1,000 ML IVC PRN (20:12)
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
[2016-12-20 20:34] LABS: Magnesium 1.9 mg/dL (1.6-2.6)
[2016-12-20] MEDS ORDERED: NON-FORMULARY MEDICATION 1 EACH EACH (Insulin Glargine [Lantus] 10 UNIT) SQ SCH (21:00)
[2016-12-20] MEDS ORDERED: Insulin DETEMIR 100 UNIT/ML X5UNITS SQ SCH ×3 (21:00→23:00)
[2016-12-20] MEDS ORDERED: Vancomycin 1,250 MG in D5% in Water 250 ML IVPB SCH (21:00)
[2016-12-20] MEDS ORDERED: Insulin LISPRO 300 UNITS/3 ML VIAL SQ SCH (21:30)
[2016-12-20 22:12] LABS: Bilirubin,Urine Negative (Negative); Blood,Urine Negative (Negative); Clarity,Urine Clear (Clear); Color,Urine Yellow (Yellow); Glucose,Urine (UA) >=1000 mg/dL (Normal); Ketones,Urine Negative (Negative); Leukocyte Esterase,Urine Negative (Negative); Nitrite,Urine Negative (Negative); Protein,Urine Negative (Neg-Trace); Specific Gravity,Urine > 1.030 (1.010-1.025); Urobilinogen,Urine Normal (Normal)
[2016-12-20] MEDS: 0.9 % Sodium Chloride 1,000 ML IVC SCH (22:17)
[2016-12-20] MEDS: *HR* Morphine 2 MG/ML SYRINGE IVP PRN (22:17)
[2016-12-20] MEDS: Nicotine 21 MG PATCH.TD24 TD SCH (22:17)
[2016-12-20] MEDS: Gabapentin 300 MG CAPSULE PO SCH (22:18)
[2016-12-21] MEDS: Insulin LISPRO 300 UNITS/3 ML VIAL SQ SCH ×4 (00:58→17:11)
[2016-12-21] MEDS: *HR* Heparin 5,000 UNIT/ML VIAL SQ SCH ×4 (00:59→23:34)
[2016-12-21] MEDS: Piperacillin/Tazobactam 3.375 GM in D5% in Water (Mini-Bag+) 100 ML IVPB SCH ×4 (00:59→23:33)
[2016-12-21] MEDS: *HR* Morphine 2 MG/ML SYRINGE IVP PRN ×4 (02:21→22:02)
[2016-12-21] MEDS ORDERED: *HR* HYDROmorphone (PF) 1 MG/ML SYRINGE IVP ONE (03:25)
[2016-12-21] MEDS ORDERED: Famotidine 20 MG/2 ML VIAL IVP SCH (06:00)
[2016-12-21] MEDS: Vancomycin 2,000 MG in D5% in Water 500 ML IVPB SCH ×2 (06:01→18:47)
[2016-12-21 06:02] LABS: Basophils # 0.1 K/mcL (0.0-0.2); Basophils % 0.8 %; Eosinophils # 0.5 K/mcL (0.0-0.6); Eosinophils % 4.7 %; Lymphocytes # 2.4 K/mcL (0.6-4.6); Lymphocytes % 23.8 %; Mean Corpuscular HGB Conc 32.6 g/dL (31.6-35.5); Mean Corpuscular Hemoglobin 30.1 pg (28.0-33.3); Mean Corpuscular Volume 92.2 fL (83.0-100.0); Mean Platelet Volume 10.4 fL (9.4-12.4); Monocytes # 0.9 K/mcL (0.0-1.3); Monocytes % 8.8 %; Neutrophils # 6.2 K/mcL (1.6-8.9); Platelet Count 232 K/mcL (140-400); Red Blood Count 4.99 M/mcL (4.19-5.50); Red Cell Distribution Width 13.5 % (11.5-14.5); Segmented Neutrophils % 60.9 %
[2016-12-21 06:04] LABS: INR 1.2; Prothrombin Time 13.2 Seconds (9.4-12.1)
[2016-12-21 06:19] LABS: Alanine Aminotransferase 149 Units/L (0-55); Albumin 2.2 g/dL (3.5-5.0); Albumin/Globulin Ratio 0.4 (1.1-2.2); Alkaline Phosphatase 145 Units/L (38-126); Aspartate Amino Transferase 242 Units/L (5-34); BUN/Creatinine Ratio 6 (6-26); Bilirubin,Total 0.7 mg/dL (0.2-1.2); Calcium 8.5 mg/dL (8.6-10.8); Carbon Dioxide 25 mEq/L (19-29); Chloride 100 mEq/L (98-109); Glucose 201 mg/dL (70-99); Osmolality,Calculated 281 (280-300); Potassium 3.2 mEq/L (3.5-4.5); Sodium 134 mEq/L (136-145); Total Protein 7.2 g/dL (6.0-8.3); eGFR For African Americans > 60 (> 60); eGFR For Non-African Americans > 60 (> 60)
[2016-12-21 06:20] LABS: Blood Urea Nitrogen 4 mg/dL (8-26)
--- NOTE | 2016-12-21 07:43 | General Surgery Consult Note ---
Date of Encounter: 12/21/16 Time of Encounter: 07:36 History of Present Illness Consult date: 12/21/16 Requesting physician: Tacos Porter History of present illness: The patient is a 46 year old male with a past medical history significant for obesity, diabetes, and anxiety/depression states that he has had a "bubble on my butt" for two weeks. Past Med Surg Social Fam HX - Past Medical History Medical history: diabetes, other Psychiatric history: anxiety, depression, prior suicide attempt, schizophrenia, previous psychiatric hospitalization, other - Past Surgical History Surgical History: orthopedic, other, other - Social History Smoking Status: Current every day smoker Packs per day: 1 Smokeless Tobacco Status: No Alcohol use: none Drug use: none - Family History Mother Living Status: Hx Family Cardiac Disorders: Yes Hx Family Endocrine Disorder: Yes (DM) Medications and Allergies Furosemide [Lasix] 20 mg PO DAILY #30 tablet 08/16/16 [Rx] Ibuprofen [Motrin] 800 mg PO Q8HR PRN #30 tablet 08/16/16 [Rx] hydrOXYzine pamoate [HydrOXYzine Pamoate] 25 mg PO Q8H PRN 11/10/16 [History] Atorvastatin [Lipitor] 20 mg PO HS #30 tablet 11/12/16 [Rx] Gabapentin [Neurontin] 300 mg PO QID PRN 12/20/16 [History] HYDROcodone/Acet 5/325 mg [[place] 5-325 mg] 1 tab PO Q6H PRN 12/20/16 [History] Insulin Glargine [Lantus] 30 unit SQ BID 12/20/16 [History] Insulin LISPRO [HumaLOG] 10 units SQ TIDWM 12/20/16 [History] Oxycodone HCl/Acetaminophen [Percocet 5-325 mg Tablet] 1 each PO Q4-6H PRN 12/20 [History] Allergies aspirin [ASA] Allergy (Verified 12/20/16 20:44) Swelling of Lip/Tongue/Throat also rash Review of Systems All systems PM: A 10-system review of systems was performed and is negative for pertinent findings except as documented above in the HPI. General Surgery Exam Initial Vital Signs Temp Pulse Resp BP Pulse Ox 97.7 F 97 14 112/75 94 12/20/16 14:06 12/20/16 14:06 12/20/16 14:06 12/20/16 14:06 12/20/16 14:06 Exam Initial Vital Signs Temp Pulse Resp BP Pulse Ox 97.7 F 97 14 112/75 94 12/20/16 14:12/20/16 14:06 12/20/16 14:06 12/20/16 14:06 12/20/16 14:06 Results - Labs 12/21/16 05:51 12/21/16 05:51 Abnormal lab results PT 13.2 Seconds (9.4-12.1) H 12/21/16 05:51 Sodium 134 mEq/L (136-145) L 12/21/16 05:51 Potassium 3.2 mEq/L (3.5-4.5) L 12/21/16 05:51 BUN 4 mg/dL (8-26) L 12/21/16 05:51 Creatinine 0.66 mg/dL (0.72-1.25) L 12/21/16 05:51 Glucose 201 mg/dL (70-99) H 12/21/16 05:51 Calcium 8.5 mg/dL (8.6-10.8) L 12/21/16 05:51 AST 242 Units/L (5-34) H 12/21/16 05:51 ALT 149 Units/L (0-55) H 12/21/16 05:51 Alkaline Phosphatase 145 Units/L (38-126) H 12/21/16 05:51 Albumin 2.2 g/dL (3.5-5.0) L 12/21/16 05:51 Globulin 5.0 g/dL (2.4-3.5) H 12/21/16 05:51 Albumin/Globulin Ratio 0.4 (1.1-2.2) L 12/21/16 05:51 Ur Specific [place] > 1.030 (1.010-1.025) H 12/20/16 22:00 Urine Glucose (UA) >=1000 mg/dL (Normal) H 12/20/16 22:00 Diabetes panel 12/21/16 Range/Units 05:51 Sodium 134 L (136-145) mEq/L Potassium 3.2 L (3.5-4.5) mEq/L Chloride 100 (98-109) mEq/L Carbon Dioxide 25 (19-29) mEq/L BUN 4 L (8-26) mg/dL Creatinine 0.66 L (0.72-1.25) mg/dL Glucose 201 H (70-99) mg/dL Calcium 8.5 L (8.6-10.8) mg/dL AST 242 H (5-34) Units/L ALT 149 H (0-55) Units/L Alkaline Phosphatase 145 H (38-126) Units/L Albumin 2.2 L (3.5-5.0) g/dL Calcium panel 12/21/16 Range/Units 05:51 Calcium 8.5 L (8.6-10.8) mg/dL Albumin 2.2 L (3.5-5.0) g/dL Pituitary panel 12/21/16 Range/Units 05:51 Sodium 134 L (136-145) mEq/L Potassium 3.2 L (3.5-4.5) mEq/L Chloride 100 (98-109) mEq/L Carbon Dioxide 25 (19-29) mEq/L BUN 4 L (8-26) mg/dL Creatinine 0.66 L (0.72-1.25) mg/dL Glucose 201 H (70-99) mg/dL Calcium 8.5 L (8.6-10.8) mg/dL Adrenal panel 12/21/16 Range/Units 05:51 Sodium 134 L (136-145) mEq/L Potassium 3.2 L (3.5-4.5) mEq/L Chloride 100 (98-109) mEq/L Carbon Dioxide 25 (19-29) mEq/L BUN 4 L (8-26) mg/dL Creatinine 0.66 L (0.72-1.25) mg/dL Glucose 201 H (70-99) mg/dL Calcium 8.5 L (8.6-10.8) mg/dL Total Bilirubin 0.7 (0.2-1.2) mg/dL AST 242 H (5-34) Units/L ALT 149 H (0-55) Units/L Alkaline Phosphatase 145 H (38-126) Units/L Albumin 2.2 L (3.5-5.0) g/dL All other labs normal. Consult Discharge Plan - Plan Referrals: NO,PCP [Primary Care Provider] -
[2016-12-21] MEDS ORDERED: Insulin LISPRO 300 UNITS/3 ML VIAL SQ SCH ×2 (08:00→21:45)
[2016-12-21] MEDS: Gabapentin 300 MG CAPSULE PO SCH ×2 (09:26→21:38)
[2016-12-21] MEDS: Furosemide 20 MG TABLET PO SCH (09:26)
[2016-12-21] MEDS: Nicotine 21 MG PATCH.TD24 TD SCH (09:29)
--- NOTE | 2016-12-21 10:12 | Internal Med Progress Note ---
Date of Encounter: 12/21/16 Time of Encounter: 10:09 - Assessment and plan (1) Cellulitis of buttock, right Current Visit: Yes Status: Acute Assessment and plan: Continue broad-spectrum IV antibiotics, IV hydration and supportive care. Further plan as below. (2) Abscess of skin or subcutaneous tissue Current Visit: Yes Status: Acute Assessment and plan: Patient is noted to have extensive loculated abscess of right gluteal area per imaging studies done at an outlying facility ER from where he signed out AMA. He could not take any outpatient antibiotics due to insurance issues. Noted to have clinical evidence of abscess with foci of purulent discharge. Continue IV vancomycin and Zosyn for now. Surgery consulted. Follow-up blood and wound cultures. Pain control with when necessary IV morphine and oral Percocet. Patient continues to request for IV Dilaudid although he does not seem to be in any kind of distress at the time of interview. Supportive care. Qualifiers: Site of cutaneous abscess: buttock Qualified Code(s): L02.31 - Cutaneous abscess of buttock (3) Chronic pain Current Visit: Yes Status: Chronic Assessment and plan: Patient reports taking when necessary Percocet and Vicodin at home due to chronic pain due to repairs of right leg and hip fractures in the past. Qualifiers: Chronic pain type: chronic pain syndrome Qualified Code(s): G89.4 - Chronic pain syndrome (4) Tobacco abuse Current Visit: Yes Status: Chronic Assessment and plan: Continue nicotine transdermal patch. (5) JAC (obstructive sleep apnea) Current Visit: Yes Status: Suspected Assessment and plan: Patient reports snoring, excessive daytime sleepiness along with high BMI. Suspicion for JAC, requires sleep studies as an outpatient. (6) Type 2 diabetes mellitus Current Visit: Yes Status: Chronic Assessment and plan: Accu-Chek blood glucose monitoring with basal bolus insulin regimen. Blood sugars at noted to be elevated, we will increase Levemir and continue sliding scale insulin. Diabetic diet. 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 (7) Morbid obesity with BMI of 40.0-44.9, adult Current Visit: Yes Status: Chronic (8) Hepatic steatosis Current Visit: Yes Status: Chronic - Subjective Interval history: Reports gluteal pain; was seen in the ER last week but left AMA as he had something to take care of, at home; he also could not fill his antibiotic prescriptions due to his insurance requiring preauthorization; - Constitutional Vitals: Temp Pulse Resp BP Pulse Ox 97.6 F 68 16 104/65 95 12/21/16 07:21 12/21/16 07:21 12/21/16 07:21 12/21/16 07:21 12/21/16 07:21 General appearance: Present: A&O X 3, morbidly obese, answers questions appropriately - Respiratory Respiratory exam: Present: CTAB. Absent: accessory muscle use, rales, rhonchi, wheezes - Cardiovascular Cardiovascular exam: Present: RRR, +S1, +S2. Absent: diastolic murmur, gallop, rubs, systolic murmur - Skin Skin exam: Present: dry, intact Additional comments: erythema, induration, tenderness over right and left medial gluteal areas, extending into perineum; points of slight drainage noted; Internal Medicine: Result - Labs CBC & Chem 7: 12/21/16 05:51 12/21/16 05:51 Labs: Short CBC 12/21/16 Range/Units 05:51 WBC 10.2 (4.3-11.1) K/mcL Hgb 15.0 (12.9-16.9) g/dL Hct 46.0 (37.5-50.1) % Plt Count 232 (140-400) K/mcL Neutrophils # 6.2 (1.6-8.9) K/mcL BMP 12/21/16 05:51 Sodium 134 L Potassium 3.2 L Chloride 100 Carbon Dioxide 25 BUN 4 L Creatinine 0.66 L Glucose 201 H Calcium 8.5 L Liver Function 12/21/16 Range/Units 05:51 Total Bilirubin 0.7 (0.2-1.2) mg/dL AST 242 H (5-34) Units/L ALT 149 H (0-55) Units/L Alkaline Phosphatase 145 H (38-126) Units/L Albumin 2.2 L (3.5-5.0) g/dL - ABG Interpretation ABG results: PT/INR, D-dimer PT 13.2 Seconds (9.4-12.1) H 12/21/16 05:51 Consult Discharge Plan - Plan Referrals: NO,PCP [Primary Care Provider] -
[2016-12-21] MEDS: 0.9 % Sodium Chloride 1,000 ML IVC SCH (14:20)
--- NOTE | 2016-12-21 14:27 | General Surgery Consult Note ---
Date of Encounter: 12/21/16 Time of Encounter: 10:00 Assessment and Plan (1) Abscess of right buttock Current Visit: Yes Status: Acute I&D complete today Wound cultures obtained Daily wound care- will need home health care at discharge Supportive care/pain control- added Percocet IV antibiotics- Zosyn and Vancomycin (await culture results) Will continue to follow and assess progress Past Med Surg Social Fam HX - Past Medical History Medical history: diabetes, other Psychiatric history: anxiety, depression, prior suicide attempt, schizophrenia, previous psychiatric hospitalization, other - Past Surgical History Surgical History: orthopedic, other, other - Social History Smoking Status: Current every day smoker Packs per day: 1 Smokeless Tobacco Status: No Alcohol use: none Drug use: none - Family History Mother Living Status: Hx Family Cardiac Disorders: Yes Hx Family Endocrine Disorder: Yes (DM) Medications and Allergies Furosemide [Lasix] 20 mg PO DAILY #30 tablet 08/16/16 [Rx] Ibuprofen [Motrin] 800 mg PO Q8HR PRN #30 tablet 08/16/16 [Rx] hydrOXYzine pamoate [HydrOXYzine Pamoate] 25 mg PO Q8H PRN 11/10/16 [History] Atorvastatin [Lipitor] 20 mg PO HS #30 tablet 11/12/16 [Rx] Gabapentin [Neurontin] 300 mg PO QID PRN 12/20/16 [History] HYDROcodone/Acet 5/325 mg [[place] 5-325 mg] 1 tab PO Q6H PRN 12/20/16 [History] Insulin Glargine [Lantus] 30 unit SQ BID 12/20/16 [History] Insulin LISPRO [HumaLOG] 10 units SQ TIDWM 12/20/16 [History] Oxycodone HCl/Acetaminophen [Percocet 5-325 mg Tablet] 1 each PO Q4-6H PRN 12/20 [History] Allergies aspirin [ASA] Allergy (Verified 12/20/16 20:44) Swelling of Lip/Tongue/Throat also rash Review of Systems All systems PM: A 10-system review of systems was performed and is negative for pertinent findings except as documented above in the HPI. General Surgery Exam Initial Vital Signs Temp Pulse Resp BP Pulse Ox 97.7 F 97 14 112/75 94 12/20/16 14:06 12/20/16 14:06 12/20/16 14:06 12/20/16 14:06 12/20/16 14:06 Exam Initial Vital Signs Temp Pulse Resp BP Pulse Ox 97.7 F 97 14 112/75 94 12/20/16 14:12/20/16 14:06 12/20/16 14:06 12/20/16 14:06 12/20/16 14:06 Results - Labs 12/21/16 05:51 12/21/16 05:51 Abnormal lab results PT 13.2 Seconds (9.4-12.1) H 12/21/16 05:51 Sodium 134 mEq/L (136-145) L 12/21/16 05:51 Potassium 3.2 mEq/L (3.5-4.5) L 12/21/16 05:51 BUN 4 mg/dL (8-26) L 12/21/16 05:51 Creatinine 0.66 mg/dL (0.72-1.25) L 12/21/16 05:51 Glucose 201 mg/dL (70-99) H 12/21/16 05:51 Calcium 8.5 mg/dL (8.6-10.8) L 12/21/16 05:51 AST 242 Units/L (5-34) H 12/21/16 05:51 ALT 149 Units/L (0-55) H 12/21/16 05:51 Alkaline Phosphatase 145 Units/L (38-126) H 12/21/16 05:51 Albumin 2.2 g/dL (3.5-5.0) L 12/21/16 05:51 Globulin 5.0 g/dL (2.4-3.5) H 12/21/16 05:51 Albumin/Globulin Ratio 0.4 (1.1-2.2) L 12/21/16 05:51 Ur Specific [place] > 1.030 (1.010-1.025) H 12/20/16 22:00 Urine Glucose (UA) >=1000 mg/dL (Normal) H 12/20/16 22:00 Diabetes panel 12/21/16 Range/Units 05:51 Sodium 134 L (136-145) mEq/L Potassium 3.2 L (3.5-4.5) mEq/L Chloride 100 (98-109) mEq/L Carbon Dioxide 25 (19-29) mEq/L BUN 4 L (8-26) mg/dL Creatinine 0.66 L (0.72-1.25) mg/dL Glucose 201 H (70-99) mg/dL Calcium 8.5 L (8.6-10.8) mg/dL AST 242 H (5-34) Units/L ALT 149 H (0-55) Units/L Alkaline Phosphatase 145 H (38-126) Units/L Albumin 2.2 L (3.5-5.0) g/dL Calcium panel 12/21/16 Range/Units 05:51 Calcium 8.5 L (8.6-10.8) mg/dL Albumin 2.2 L (3.5-5.0) g/dL Pituitary panel 12/21/16 Range/Units 05:51 Sodium 134 L (136-145) mEq/L Potassium 3.2 L (3.5-4.5) mEq/L Chloride 100 (98-109) mEq/L Carbon Dioxide 25 (19-29) mEq/L BUN 4 L (8-26) mg/dL Creatinine 0.66 L (0.72-1.25) mg/dL Glucose 201 H (70-99) mg/dL Calcium 8.5 L (8.6-10.8) mg/dL Adrenal panel 12/21/16 Range/Units 05:51 Sodium 134 L (136-145) mEq/L Potassium 3.2 L (3.5-4.5) mEq/L Chloride 100 (98-109) mEq/L Carbon Dioxide 25 (19-29) mEq/L BUN 4 L (8-26) mg/dL Creatinine 0.66 L (0.72-1.25) mg/dL Glucose 201 H (70-99) mg/dL Calcium 8.5 L (8.6-10.8) mg/dL Total Bilirubin 0.7 (0.2-1.2) mg/dL AST 242 H (5-34) Units/L ALT 149 H (0-55) Units/L Alkaline Phosphatase 145 H (38-126) Units/L Albumin 2.2 L (3.5-5.0) g/dL All other labs normal. Consult Discharge Plan - Plan Referrals: NO,PCP [Primary Care Provider] -
--- NOTE | 2016-12-21 14:29 | General Surgery Procedure Note ---
Date of procedure: 12/21/16 Pre-op diagnosis: Right buttock abscess Post-op diagnosis: same Procedure: After informed consent was obtained and timeout performed, the patient was placed in the prone position. His right buttock was prepped with Betadine. After prepping the affected area, he was localized with 20 mL's of 1% lidocaine. After achieving appropriate localization, a #11 blade scalpel was used to open up the most fluctuant area of the abscess. There was immediate drainage of copious amounts of purulent drainage. The abscess cavity was opened with the use of hemostats and completely decompressed. Cultures were obtained for Gram stain, aerobic culture, aerobic culture. I flushed the cavity with 40 mL's of saline. The cavity was then packed with a quarter inch gauze covered with dry dressing and secured with mesh underwear. No complications noted. Complications: none Anesthesia: local (20ml 1% lidocaine) Surgeon: Paula Melendez Estimated blood loss (cc): 5 Pathology: other (Cultures for aerobic, anaerobic, Gram stain) Condition: stable Disposition: no change
[2016-12-21] MEDS: *HR* OxyCODONE/APAP 5/325 TABLET PO PRN ×3 (14:30→23:34)
[2016-12-21] MEDS: Insulin DETEMIR 100 UNIT/ML X5UNITS SQ SCH (21:41)
[2016-12-22] MEDS: *HR* Morphine 2 MG/ML SYRINGE IVP PRN ×4 (02:42→20:00)
[2016-12-22] MEDS: *HR* OxyCODONE/APAP 5/325 TABLET PO PRN ×3 (03:39→12:35)
[2016-12-22] MEDS: Vancomycin 2,000 MG in D5% in Water 500 ML IVPB SCH (06:30)
[2016-12-22] MEDS: 0.9 % Sodium Chloride 1,000 ML IVC SCH (06:38)
--- NOTE | 2016-12-22 07:12 | General Surgery Consult Note ---
Date of Encounter: 12/21/16 Time of Encounter: 07:30 Assessment and Plan (1) Abscess of right buttock Current Visit: Yes Status: Acute I discussed with the patient that I will ask my nurse practitioner to perform an incision and drainage procedure at the Bedside. I think this can be performed without having to four-minute in the operating room setting. Discussed with the patient and he agrees with the above plan. History of Present Illness Consult date: 12/21/16 Reason for consult: other (Buttock abscess) Requesting physician: Tacos Porter History of present illness: The patient is a 6-year-old male with a past medical history significant for diabetes mellitus, obesity, and anxiety/depression who states that he had a "bubble on his butt" that has been present for approximately 2 weeks. He states that area became more enlarged and inflamed over the initial 7-10 days and they did resented himself to facility for evaluation of the abscess. He was told that it he should have this area incised and drained and did have a CT scan performed at outside facility. He left AGAINST MEDICAL ADVICE and the following day presented to [facility] for further evaluation of his buttock abscess. He states in the area did start to spontaneously drain over the past 24-48 hours. He admits to pain in the area particularly with sitting and drainage with wiping. Past Med Surg Social Fam HX - Past Medical History Medical history: diabetes, other Psychiatric history: anxiety, depression, prior suicide attempt, schizophrenia, previous psychiatric hospitalization, other - Past Surgical History Surgical History: orthopedic, other, other - Social History Smoking Status: Current every day smoker Packs per day: 1 Smokeless Tobacco Status: No Alcohol use: none Drug use: none - Family History Mother Living Status: Hx Family Cardiac Disorders: Yes Hx Family Endocrine Disorder: Yes (DM) Medications and Allergies Furosemide [Lasix] 20 mg PO DAILY #30 tablet 08/16/16 [Rx] Ibuprofen [Motrin] 800 mg PO Q8HR PRN #30 tablet 08/16/16 [Rx] hydrOXYzine pamoate [HydrOXYzine Pamoate] 25 mg PO Q8H PRN 11/10/16 [History] Atorvastatin [Lipitor] 20 mg PO HS #30 tablet 11/12/16 [Rx] Gabapentin [Neurontin] 300 mg PO QID PRN 12/20/16 [History] HYDROcodone/Acet 5/325 mg [[place] 5-325 mg] 1 tab PO Q6H PRN 12/20/16 [History] Insulin Glargine [Lantus] 30 unit SQ BID 12/20/16 [History] Insulin LISPRO [HumaLOG] 10 units SQ TIDWM 12/20/16 [History] Oxycodone HCl/Acetaminophen [Percocet 5-325 mg Tablet] 1 each PO Q4-6H PRN 12/20 [History] Allergies aspirin [ASA] Allergy (Verified 12/20/16 20:44) Swelling of Lip/Tongue/Throat also rash Review of Systems All systems PM: reviewed and no additional remarkable complaints except as stated All systems PM: A 10-system review of systems was performed and is negative for pertinent findings except as documented above in the HPI. General Surgery Exam Initial Vital Signs Temp Pulse Resp BP Pulse Ox 97.7 F 97 14 112/75 94 12/20/16 14:12/20/16 14:12/20/16 14:12/20/16 14:06 12/20/16 14:06 - General physical appearance well developed, well nourished, no distress - Respiratory normal expansion, normal respiratory effort, clear to auscultation - Cardiovascular Cardiovascular exam: Present: RRR, no murmurs/rubs/gallops - Abdomen Abdomen general surgery: Present: bowel sounds present, soft, non tender (Obese) - Rectum Rectum: Present: other (There is an area of fluctance noted along the right buttocks near the anus. Tender to palpation with some drainage noted.) - Musculoskeletal Present: other (No clubbing, cyanosis, or edema.) - Psychiatric Psychiatric general surgery: Present: A&Ox3, appropriate Exam Initial Vital Signs Temp Pulse Resp BP Pulse Ox 97.7 F 97 14 112/75 94 12/20/16 14:12/20/16 14:12/20/16 14:12/20/16 14:06 12/20/16 14:06 Results - Labs 12/21/16 05:51 12/21/16 05:51 Abnormal lab results PT 13.2 Seconds (9.4-12.1) H 12/21/16 05:51 Sodium 134 mEq/L (136-145) L 12/21/16 05:51 Potassium 3.2 mEq/L (3.5-4.5) L 12/21/16 05:51 BUN 4 mg/dL (8-26) L 12/21/16 05:51 Creatinine 0.66 mg/dL (0.72-1.25) L 12/21/16 05:51 Glucose 201 mg/dL (70-99) H 12/21/16 05:51 POC Glucose 325 (58-89) H 12/21/16 21:41 Calcium 8.5 mg/dL (8.6-10.8) L 12/21/16 05:51 AST 242 Units/L (5-34) H 12/21/16 05:51 ALT 149 Units/L (0-55) H 12/21/16 05:51 Alkaline Phosphatase 145 Units/L (38-126) H 12/21/16 05:51 Albumin 2.2 g/dL (3.5-5.0) L 12/21/16 05:51 Globulin 5.0 g/dL (2.4-3.5) H 12/21/16 05:51 Albumin/Globulin Ratio 0.4 (1.1-2.2) L 12/21/16 05:51 Ur Specific [place] > 1.030 (1.010-1.025) H 12/20/16 22:00 Urine Glucose (UA) >=1000 mg/dL (Normal) H 12/20/16 22:00 Vancomycin Trough 7.6 mcg/mL (10-20) L 12/22/16 04:47 All other labs normal. Consult Discharge Plan - Plan Referrals: NO,PCP [Primary Care Provider] -
[2016-12-22] MEDS: Nicotine 21 MG PATCH.TD24 TD SCH (08:10)
[2016-12-22] MEDS: *HR* Heparin 5,000 UNIT/ML VIAL SQ SCH ×2 (08:12→15:28)
[2016-12-22] MEDS: Furosemide 20 MG TABLET PO SCH (08:12)
[2016-12-22] MEDS: Gabapentin 300 MG CAPSULE PO SCH ×2 (08:12→20:21)
[2016-12-22] MEDS: Insulin DETEMIR 100 UNIT/ML X5UNITS SQ SCH ×3 (08:13→20:21)
[2016-12-22] MEDS: Insulin LISPRO 300 UNITS/3 ML VIAL SQ SCH ×7 (08:14→17:16)
[2016-12-22] MEDS: Piperacillin/Tazobactam 3.375 GM in D5% in Water (Mini-Bag+) 100 ML IVPB SCH (08:15)
[2016-12-22] MEDS ORDERED: Insulin DETEMIR 100 UNIT/ML X5UNITS SQ ONE (09:45)
[2016-12-22] MEDS: ceFAZolin 1,000 MG in D5% in Water (Mini-Bag+) 100 ML IVPB SCH ×2 (12:39→19:55)
--- NOTE | 2016-12-22 13:15 | Internal Med Progress Note ---
Date of Encounter: 12/22/16 Time of Encounter: 09:00 - Assessment and plan (1) Cellulitis of buttock, right Current Visit: Yes Status: Acute Assessment and plan: Continue broad-spectrum IV antibiotics and supportive care. Further plan as below. (2) Abscess of skin or subcutaneous tissue Current Visit: Yes Status: Acute Assessment and plan: Surgery consult appreciated. Patient underwent incision and drainage of right gluteal abscess with copious amount of purulent material drained, sent for Gram stain and cultures. Continue local wound care with packing per surgery recommendations. Wound culture from 12/20 grows Escherichia coli, Klebsiella, group B streptococci. Preliminary wound culture from December 21 grows significant amount of gram-positive cocci. Will change antibiotics to IV cefazolin and vancomycin for now. Pain control with when necessary IV morphine and oral Percocet. Supportive care. Patient will require home health services for wound care, case coordinator aware of this. Qualifiers: Site of cutaneous abscess: buttock Qualified Code(s): L02.31 - Cutaneous abscess of buttock (3) Chronic pain Current Visit: Yes Status: Chronic Assessment and plan: Patient reports taking when necessary Percocet and Vicodin at home due to chronic pain due to repairs of right leg and hip fractures in the past. Qualifiers: Chronic pain type: chronic pain syndrome Qualified Code(s): G89.4 - Chronic pain syndrome (4) Tobacco abuse Current Visit: Yes Status: Chronic Assessment and plan: Continue nicotine transdermal patch. (5) JAC (obstructive sleep apnea) Current Visit: Yes Status: Suspected (6) Type 2 diabetes mellitus Current Visit: Yes Status: Chronic Assessment and plan: Accu-Chek blood glucose monitoring with basal bolus insulin regimen. Blood sugars at noted to be elevated, we will increase Levemir and start high-dose sliding scale insulin and add nutritional insulin. Diabetic diet. Qualifiers: Diabetes mellitus complication status: with hyperglycemia Diabetes mellitus ocean transportation intermediary insulin use: with ocean transportation intermediary use Qualified Code(s): E11.65 - Type 2 diabetes mellitus with hyperglycemia; Z79.4 - assisted (current) use of insulin (7) Morbid obesity with BMI of 40.0-44.9, adult Current Visit: Yes Status: Chronic (8) Hepatic steatosis Current Visit: Yes Status: Chronic - Subjective Interval history: Feels better, improved gluteal pain after drainage of abscess yesterday. Continues to report generalized body aches. No fever, chills, nausea, emesis. - Constitutional Vitals: Temp Pulse Resp BP Pulse Ox 97.8 F 76 16 124/82 94 12/22/16 10:50 12/22/16 10:50 12/22/16 10:50 12/22/16 10:50 12/22/16 10:50 General appearance: Present: A&O X 3, morbidly obese, answers questions appropriately - Respiratory Respiratory exam: Present: CTAB. Absent: accessory muscle use, rales, rhonchi, wheezes - Cardiovascular Cardiovascular exam: Present: RRR, +S1, +S2. Absent: diastolic murmur, gallop, rubs, systolic murmur - GI/Abdominal GI/Abdominal exam: Present: normal bowel sounds, soft (Obese), no peritoneal signs. Absent: distended, tenderness - Extremities Exam Extremities exam: Present: full ROM, warm, radial pulses palpable and symetrical. Absent: calf tenderness, cyanotic, pedal edema - Skin Skin exam: Present: dry, intact Additional comments: Right medial gluteal area with packing and dressing, improving surrounding cellulitis Internal Medicine: Result - Labs CBC & Chem 7: 12/21/16 05:51 12/21/16 05:51 - ABG Interpretation ABG results: PT/INR, D-dimer PT 13.2 Seconds (9.4-12.1) H 12/21/16 05:51 Consult Discharge Plan - Plan Referrals: Abdullahi Monson MD [Partnered Physician] - 12/27/16 3:30 pm Jazmine Galindo DO [Resident] - 01/05/17 4:00 pm
[2016-12-22] MEDS ORDERED: Vancomycin 2,000 MG in D5% in Water 250 ML IVPB SCH (14:00)
--- NOTE | 2016-12-22 14:56 | General Surgery Progress Note ---
Date of Encounter: 12/22/16 Time of Encounter: 14:30 - Assessment and Plan (1) Abscess of right buttock Current Visit: Yes Status: Acute Daily wound packing- will need home health at discharge Supportive care/pain control- increased to Percocet 10/325mg IV antibiotics- Ancef and Vancomycin Await cultures results- gram positive cocci preliminary Will continue to follow and assess progress Subjective Patient reports: no new complaints, still having pain, pain is less, voiding w/ o difficulty, flatus, bowel movement, afebrile Objective Vital Signs - Last 8 Hours Temp Pulse Resp BP Pulse Ox 12/22/16 10:50 97.8 F 76 16 124/82 94 12/22/16 07:13 97.6 F 78 16 126/85 94 Intake and Output 12/21/16 12/22/16 12/22/16 23:59 07:59 15:59 Intake Total 1743 / 1743 1057 / 1057 1344 / 1344 Output Total 950 / 950 900 / 900 1575 / 1575 Balance 793 / 793 157 / 157 -231 / -231 Intake: IV Fluids 1003 / 1003 697 / 697 744 / 744 0.9 % Sodium Chloride 1, 403 / 403 597 / 597 144 / 144 000 ML @ 80 mls/hr IVC . [id number] [facility] Rx#: [id number] Zosyn 3.375 GM In 100 / 100 100 / 100 Dextrose 5% (Minibag+) 100 ML 100 ML @ 25 mls/hr IVPB Q8HR [facility] Rx#: [id number] Vancocin 2,000 MG In 500 / 500 500 / 500 Dextrose 5% 500 ML @ 250 mls/hr IVPB Q12H [facility] Rx#: [id number] Ancef 1,000 MG In 100 / 100 Dextrose 5% (Minibag+) 100 ML 100 ML @ 200 mls/ hr IVPB Q8H [facility] Rx#: [id number] Oral 740 / 740 360 / 360 600 / 600 Output: Urine 950 / 950 900 / 900 1575 / 1575 Other: Meal Dinner Coffee Coffee Percent of Meal Consumed 100% 100% # Voids 1 Weight 142.4 kg Blood Glucose* 325 253 287 Patient Weight 12/22/16 23:59 Weight 142.4 kg - General physical appearance well developed, well nourished, no distress - Eyes normal ocular movement - ENT normal mucosa, atraumatic, normocephalic - Neck Neck exam: trachea midline - Respiratory normal respiratory effort - Abdomen Abdomen: Present: soft, non tender - Incision Incision: Present: erythema (improved), indurated (improved), serosanguinous ( moderate amount), open - Neurologic CN 2-12 grossly intact - Psychiatric oriented to time, oriented to person, oriented to place, speech is normal, memory intact - Labs 12/21/16 05:51 12/21/16 05:51 Consult Discharge Plan - Plan Referrals: Abdullahi Monson MD [Partnered Physician] - 12/27/16 3:30 pm Jazmine Galindo DO [Resident] - 01/05/17 4:00 pm
[2016-12-22] MEDS: *HR* OxyCODONE/APAP 10/325 TABLET PO PRN ×2 (15:27→20:32)
[2016-12-22] MEDS: Vancomycin 1,500 MG in D5% in Water 250 ML IVPB SCH (15:28)
[2016-12-22] MEDS ORDERED: Insulin LISPRO 300 UNITS/3 ML VIAL SQ SCH (21:00)
[2016-12-23] MEDS: *HR* Morphine 2 MG/ML SYRINGE IVP PRN ×2 (00:12→04:41)
[2016-12-23] MEDS: *HR* Heparin 5,000 UNIT/ML VIAL SQ SCH ×2 (00:13→07:56)
[2016-12-23] MEDS: Vancomycin 1,500 MG in D5% in Water 250 ML IVPB SCH ×2 (00:24→08:04)
[2016-12-23] MEDS: *HR* OxyCODONE/APAP 10/325 TABLET PO PRN ×4 (01:30→13:47)
[2016-12-23] MEDS ORDERED: Sennosides/Docusate Sodium TABLET PO PRN (03:37)
[2016-12-23] MEDS: ceFAZolin 1,000 MG in D5% in Water (Mini-Bag+) 100 ML IVPB SCH ×2 (03:56→12:07)
[2016-12-23] MEDS: Insulin DETEMIR 100 UNIT/ML X5UNITS SQ SCH (07:57)
[2016-12-23] MEDS: Nicotine 21 MG PATCH.TD24 TD SCH (07:57)
[2016-12-23] MEDS: Furosemide 20 MG TABLET PO SCH (07:58)
[2016-12-23] MEDS: Gabapentin 300 MG CAPSULE PO SCH (07:59)
[2016-12-23] MEDS: Insulin LISPRO 300 UNITS/3 ML VIAL SQ SCH ×4 (08:00→12:06)
--- NOTE | 2016-12-23 10:29 | Discharge Summary ---
Date of Encounter: 12/23/16 Time of Encounter: 10:24 - Discharge Diagnosis (1) Cellulitis of buttock, right Priority: Primary Status: Acute (2) Abscess of skin or subcutaneous tissue Priority: Primary Status: Acute Qualifiers: Site of cutaneous abscess: buttock Qualified Code(s): L02.31 - Cutaneous abscess of buttock (3) Chronic pain Priority: Secondary Status: Chronic Qualifiers: Chronic pain type: chronic pain syndrome Qualified Code(s): G89.4 - Chronic pain syndrome (4) Tobacco abuse Priority: Secondary Status: Chronic (5) JAC (obstructive sleep apnea) Priority: Secondary Status: Suspected (6) Type 2 diabetes mellitus Priority: Secondary Status: Chronic Qualifiers: Diabetes mellitus complication status: with hyperglycemia Diabetes mellitus fci insulin use: with fci use Qualified Code(s): E11.65 - Type 2 diabetes mellitus with hyperglycemia; Z79.4 - intermediate (current) use of insulin (7) Morbid obesity with BMI of 40.0-44.9, adult Priority: Secondary Status: Chronic (8) Hepatic steatosis Priority: Secondary Status: Chronic - Discharge Medications Prescriptions: Amoxicillin/Clavulanate [Augmentin] 875 mg PO BIDWM #14 tablet cephALEXin [Keflex] 500 mg PO TID #21 capsule Diaper,Brief,Adult, Disposable [Depend Fit-Flex] 1 each MC TID #1 pack OxyCODONE/APAP 10/325 [Percocet 10/325 MG] 1 each PO Q6H PRN #20 tablet PRN Reason: Pain Walker W Wheels [WHEELED WALKER] 1 each .ROUTE AD #1 each Home Medications: Furosemide [Lasix] 20 mg PO DAILY #30 tablet 08/16/16 [Rx] Ibuprofen [Motrin] 800 mg PO Q8HR PRN #30 tablet 08/16/16 [Rx] hydrOXYzine pamoate [HydrOXYzine Pamoate] 25 mg PO Q8H PRN 11/10/16 [History] Atorvastatin [Lipitor] 20 mg PO HS #30 tablet 11/12/16 [Rx] Gabapentin [Neurontin] 300 mg PO QID PRN 12/20/16 [History] Insulin LISPRO [HumaLOG] 10 units SQ TIDWM 12/20/16 [History] Diaper,Brief,Adult, Disposable [Depend Fit-Flex] 1 each MC TID #1 pack 12/22/16 [Rx] Walker W Wheels [WHEELED WALKER] 1 each .ROUTE AD #1 each 12/22/16 [Rx] Amoxicillin/Clavulanate [Augmentin] 875 mg PO BIDWM #14 tablet 12/23/16 [Rx] Insulin Glargine [Lantus] 40 unit SQ BID #0 12/23/16 [Rx] OxyCODONE/APAP 10/325 [Percocet 10/325 MG] 1 each PO Q6H PRN #20 tablet [Rx] cephALEXin [Keflex] 500 mg PO TID #21 capsule 12/23/16 [Rx] Allergies/Adverse Reactions: Allergies aspirin [ASA] Allergy (Verified 12/20/16 20:44) Swelling of Lip/Tongue/Throat also rash Date of admission: 12/21/16 00:43 Primary care physician: PCP NO Discharging clinician: Sabina Sales Anticipated date of discharge: 12/23/16 - Patient Status Disposition: Home Health Service Condition: Good Functional capacity at discharge: uses cane/walker Overall status at discharge: patient is progressing back to baseline - Discharge Instructions Follow Up With: Abdullahi Monson MD [Partnered Physician] - 12/27/16 3:30 pm Paula Melendez CNP [Advanced Practice Nurse] - 12/30/16 9:30 am Jazmine Rascon DO [Resident] - 01/05/17 4:00 pm Additional Instructions: Right buttock wound- cleanse with soap and water in the shower, pack with 1/4 or 1/2 inch plain gauze, cover with dry dressing and tape to secure daily. May change outer dressing if soiled. - Diet and Activity Activity: resume usual activities as tolerated Diet: diabetic diet, low fat, low cholesterol, low salt diet Hospital course: Mr. Norris is a 46 year old male with the above medical problems who was admitted with significant pain and swelling in right gluteal area, extending to perineum. He was noted to have loculated right gluteal abscess and was started on broad-spectrum IV antibiotics-vancomycin and Zosyn. He did not meet sepsis criteria at admission. Surgery was consulted and patient underwent bedside incision and drainage of right gluteal abscess. Wound cultures grew Escherichia coli, Klebsiella, group B streptococci, Enterococcus faecalis. Patient's antibiotics were subsequently changed to IV cefazolin and vancomycin. He is noted to have hyperglycemia due to uncontrolled diabetes and his basal insulin was uptitrated as needed. Patient is currently medically stable for discharge with oral antibiotics-Keflex and Augmentin. Referral for home health services has been completed for wound care with packing. - Time Spent with Patient Total time spent providing and/or coordinating discharge services: Greater than 30 minutes (50 min) - Constitutional Vitals: Temp Pulse Resp BP Pulse Ox 97.8 F 81 18 102/62 92 12/23/16 07:36 12/23/16 07:36 12/23/16 07:36 12/23/16 07:36 12/23/16 07:36 General appearance: Present: A&O X 3, morbidly obese, answers questions appropriately - Cardiovascular Cardiovascular exam: Present: RRR, +S1, +S2. Absent: diastolic murmur, gallop, rubs, systolic murmur
--- NOTE | 2016-12-23 10:31 | Physician Discharge Referral ---
Home Health/Hosp Referral Info Transfer to: Home Health Attending Provider: Sabina Sales Provider in Charge Post Discharge: PCP - Diagnosis (1) Cellulitis of buttock, right Priority: Primary Status: Acute (2) Abscess of skin or subcutaneous tissue Priority: Primary Status: Acute (3) Chronic pain Priority: Secondary Status: Chronic (4) Tobacco abuse Priority: Secondary Status: Chronic (5) JAC (obstructive sleep apnea) Priority: Secondary Status: Suspected (6) Type 2 diabetes mellitus Priority: Secondary Status: Chronic (7) Morbid obesity with BMI of 40.0-44.9, adult Priority: Secondary Status: Chronic (8) Hepatic steatosis Priority: Secondary Status: Chronic - Respiratory Orders Smoking Cessation: Smoking cessation has been advised. For more information, call the [employer] Quit Line at 8-317-ZNOK-NOW. - Diet/Nutrition Diet/Nutrition Orders: Cardiac, No Concentrated Sweets (diabetic) - Activity Activity Orders: Ambulate - Services Needed Following services are medically necessary services: Nursing (for wound care, diabetes management) Home Care Orders: Clean wound with sterile water, pack with 1/4 inch sterile gauze, cover with dry gauze and tape; to be done once daily; - Transfer Medications Prescriptions: Amoxicillin/Clavulanate [Augmentin] 875 mg PO BIDWM #14 tablet cephALEXin [Keflex] 500 mg PO TID #21 capsule Diaper,Brief,Adult, Disposable [Depend Fit-Flex] 1 each MC TID #1 pack OxyCODONE/APAP 10/325 [Percocet 10/325 MG] 1 each PO Q6H PRN #20 tablet PRN Reason: Pain Walker W Wheels [WHEELED WALKER] 1 each .ROUTE AD #1 each Home Medications: Furosemide [Lasix] 20 mg PO DAILY #30 tablet 08/16/16 [Rx] Ibuprofen [Motrin] 800 mg PO Q8HR PRN #30 tablet 08/16/16 [Rx] hydrOXYzine pamoate [HydrOXYzine Pamoate] 25 mg PO Q8H PRN 11/10/16 [History] Atorvastatin [Lipitor] 20 mg PO HS #30 tablet 11/12/16 [Rx] Gabapentin [Neurontin] 300 mg PO QID PRN 12/20/16 [History] Insulin LISPRO [HumaLOG] 10 units SQ TIDWM 12/20/16 [History] Diaper,Brief,Adult, Disposable [Depend Fit-Flex] 1 each MC TID #1 pack 12/22/16 [Rx] Walker W Wheels [WHEELED WALKER] 1 each .ROUTE AD #1 each 12/22/16 [Rx] Amoxicillin/Clavulanate [Augmentin] 875 mg PO BIDWM #14 tablet 12/23/16 [Rx] Insulin Glargine [Lantus] 40 unit SQ BID #0 12/23/16 [Rx] OxyCODONE/APAP 10/325 [Percocet 10/325 MG] 1 each PO Q6H PRN #20 tablet [Rx] cephALEXin [Keflex] 500 mg PO TID #21 capsule 12/23/16 [Rx] Allergies/Adverse Reactions: Allergies aspirin [ASA] Allergy (Verified 12/20/16 20:44) Swelling of Lip/Tongue/Throat also rash Certification: Further, I certify that my clinical findings support that this patient is homebound (i.e. absences from home require considerable and taxing effort and are for medical reasons or shinto services or infrequently or short duration when for other reasons) because: Homebound Reason: Patient requires assistance of a person or device to safely leave home Attestation: My signature below is to certify that this patient is under my care and that I, or nurse practitioner, or a physician's urgent care physician assistant working with me, has a face-to -face encounter with this patient.
[2016-12-23 12:01] VITALS: BP 149/85
--- NOTE | 2016-12-23 14:26 | General Surgery Progress Note ---
Date of Encounter: 12/23/16 Time of Encounter: 14:00 - Assessment and Plan (1) Abscess of right buttock Current Visit: Yes Status: Acute Daily wound packing- will need home health at discharge Supportive care/pain control- increased to Percocet 10/325mg IV antibiotics- Ancef and Vancomycin Await cultures results- gram positive cocci preliminary Will continue to follow and assess progress Subjective Patient reports: no new complaints, feels better, still having pain, pain is less, tolerating a regular diet, voiding w/o difficulty, flatus, bowel movement , afebrile Objective Vital Signs - Last 8 Hours Temp Pulse Resp BP Pulse Ox 12/23/16 12:00 97.7 F 86 16 149/85 92 12/23/16 07:36 97.8 F 81 18 102/62 92 Intake and Output 12/22/16 12/23/16 12/23/16 23:59 07:59 15:59 Intake Total 590 / 590 350 / 350 120 / 120 Output Total 800 / 800 0 / 0 Balance -210 / -210 350 / 350 120 / 120 Intake: IV Fluids 350 / 350 350 / 350 Vancocin 1,500 MG In 250 / 250 250 / 250 Dextrose 5% 250 ML @ 166. 67 mls/hr IVPB Q8H [facility] Rx #:[id number] Ancef 1,000 MG In 100 / 100 100 / 100 Dextrose 5% (Minibag+) 100 ML 100 ML @ 200 mls/ hr IVPB Q8H [facility] Rx#: [id number] Oral 240 / 240 0 / 0 120 / 120 Output: Urine 800 / 800 0 / 0 Other: Meal Dinner Breakfast Percent of Meal Consumed 100% 100% # Voids 3 Weight 142.9 kg Blood Glucose* 217 192 212 Patient Weight 12/23/16 23:59 Weight 142.9 kg - General physical appearance well developed, well nourished, no distress - Eyes normal ocular movement - ENT normal mucosa, atraumatic, normocephalic - Neck Neck exam: trachea midline - Respiratory normal respiratory effort - Abdomen Abdomen: Present: soft, non tender - Incision Incision: Present: erythema (resolving), indurated (improved), serosanguinous, open - Neurologic CN 2-12 grossly intact - Musculoskeletal normal gait, normal posture - Psychiatric oriented to time, oriented to person, oriented to place, speech is normal, memory intact - Labs 12/21/16 05:51 12/21/16 05:51 Consult Discharge Plan - Plan Additional Instructions: Right buttock wound- cleanse with soap and water in the shower, pack with 1/4 or 1/2 inch plain gauze, cover with dry dressing and tape to secure daily. May change outer dressing if soiled. Referrals: Abdullahi Monson MD [Partnered Physician] - 12/27/16 3:30 pm Jazmine Galindo DO [Resident] - 01/05/17 4:00 pm Paula Melendez CNP [Advanced Practice Nurse] - 12/30/16 9:30 am Prescriptions: Amoxicillin/Clavulanate [Augmentin] 875 mg PO BIDWM #14 tablet cephALEXin [Keflex] 500 mg PO TID #21 capsule Diaper,Brief,Adult, Disposable [Depend Fit-Flex] 1 each MC TID #1 pack OxyCODONE/APAP 10/325 [Percocet 10/325 MG] 1 each PO Q6H PRN #20 tablet PRN Reason: Pain Walker W Wheels [WHEELED WALKER] 1 each .ROUTE AD #1 each
[2016-12-23] MEDS ORDERED: Aminoglycoside Consult 1 EACH MC ONE (15:29)
== END 2016-12-23 15:30 | disposition home health service (06) | DRG 420 ==
LOC: 3ANU 13:54 → EMEROO 13:54 → 3ANU 20:12 → SUATTDRO 12-21 00:43
PROVIDERS: ADMIT Nurse Practitioner Family; ATTEND Internal Medicine

== ENCOUNTER 2017-01-13 08:13 | Inpatient (IN) ==
[2017-01-13 09:44] LABS: Hematocrit 46.1 % (37.5-50.1); Hemoglobin 15.4 g/dL (12.9-16.9); Mean Corpuscular HGB Conc 33.4 g/dL (31.6-35.5); Mean Corpuscular Hemoglobin 30.7 pg (28.0-33.3); Mean Corpuscular Volume 91.8 fL (83.0-100.0); Mean Platelet Volume 10.5 fL (9.4-12.4); Platelet Count 255 K/mcL (140-400); Red Blood Count 5.02 M/mcL (4.19-5.50); Red Cell Distribution Width 14.4 % (11.5-14.5)
[2017-01-13 09:58] LABS: BUN/Creatinine Ratio 10 (6-26); Blood Urea Nitrogen 8 mg/dL (8-26); Carbon Dioxide 22 mEq/L (19-29); Chloride 96 mEq/L (98-109); Glucose 486 mg/dL (70-99); Osmolality,Calculated 286 (280-300); Sodium 128 mEq/L (136-145); eGFR For African Americans > 60 (> 60); eGFR For Non-African Americans > 60 (> 60)
[2017-01-13] MEDS ORDERED: Ondansetron 4 MG/2 ML VIAL IVP ONE (10:24)
[2017-01-13] MEDS ORDERED: *HR* HYDROmorphone (PF) 1 MG/ML SYRINGE IVP ONE ×2 (10:24→14:49)
[2017-01-13] MEDS ORDERED: Vancomycin 2,000 MG in D5% in Water 250 ML IVPB ONE (10:33)
[2017-01-13] MEDS ORDERED: Piperacillin/Tazobactam 4.5 GM in D5% in Water (Mini-Bag+) 100 ML IVPB ONE (10:33)
--- NOTE | 2017-01-13 10:41 | Emergency Department Note ---
Disposition Clinical Impression: Abscess, Hyponatremia Leukocytosis Qualifiers: Leukocytosis type: other Qualified Code(s): D72.828 - Other elevated white blood cell count Disposition: Admitted As Inpatient Condition: Fair Skin/Abscess/FB HPI Chief complaint: ED General Medical Stated complaint: Insect Bites/boil on butt Time Seen by Provider: 01/13/17 09:03 Source: patient Nursing Notes Reviewed: Yes Vital Signs Reviewed: Yes HPI Narrative: Patient presents with 3 or 4 weeks of swelling in the right gluteal area pain which is constant severe and did have this area drained and had been on antibiotics past but is no longer taking antibiotics. Does have nausea but no fever or vomiting. He does not note any blood in the stool. I did review the past records. No abdominal pain. Social history: No alcohol or drugs Home Medications Medication Instructions Recorded Confirmed hydrOXYzine pamoate [HydrOXYzine 25 mg PO Q8H PRN 11/10/16 01/13/17 Pamoate] Gabapentin [Neurontin] 300 mg PO TID 12/20/16 01/13/17 Insulin LISPRO [HumaLOG] 10 units SQ TIDWM 12/20/16 01/13/17 Menthol [Biofreeze] 1 appl TP BID PRN 01/13/17 01/13/17 Nicotine Polacrilex [Nicotine Gum] 4 mg BC Q2H PRN 01/13/17 01/13/17 Nystatin POWDER [Nystop] 1 appl TP BID 01/13/17 01/13/17 OxyCODONE/APAP 10/325 [Percocet 1 tab PO Q6H PRN 01/13/17 01/13/17 10/325 MG] Polyvinyl Alcohol [Artificial 1 drop OP BID PRN 01/13/17 01/13/17 Tears] Previous Rx's Medication Instructions Recorded Furosemide [Lasix] 20 mg PO DAILY #30 tablet 08/16/16 Atorvastatin [Lipitor] 20 mg PO HS #30 tablet 11/12/16 Insulin Glargine [Lantus] 40 unit SQ BID #0 12/23/16 Allergies Allergy/AdvReac Type Severity Reaction Status Date / Time aspirin [ASA] Allergy Swelling Verified 12/20/16 20:44 of Lip/Tongue/Throat Bleach (Sodium Hypochlorite) Allergy Rash Verified 12/30/16 21:28 naproxen [From Naprosyn] Allergy Rash Verified 12/30/16 21:28 Review of Systems: Constitutional: + fever (felt warm) Vision: + blurred vision ENT: No rhinorrhea Respiratory: No cough Allergic: No allergies : No blood in urine GI: No blood in stool Hematologic: No bruising Dermatologic: + skin rash Musculoskeletal: No pain in the extremities Neuro: No numbness of the extremities Past Medical History - Past Medical History Medical history: Reports: diabetes, other Surgical history: Reports: orthopedic, other, other Psychiatric history: Reports: anxiety, depression, prior suicide attempt, schizophrenia, previous psychiatric hospitalization, other - Social History Smoking Status: Current every day smoker Smokeless Tobacco Status: No Alcohol use: Reports: none Drug use: Reports: none Physical Exam CONSTITUTIONAL: Alert and oriented X3, well-nourished, well appearing, in no apparent distress HEAD: Normocephalic; atraumatic. EYES: PERRL, no scleral icterus. NOSE: The nose is normal in appearance without rhinorrhea RESP: Normal chest excursion with respiration; breath sounds clear and equal bilaterally; no wheezes, rhonchi, or rales CARD: Regular rhythm, without murmurs, rub or gallop ABD: Non-distended; non-tender, soft,without rigidity, rebound or guarding SKIN: Normal for age and race; warm and dry; there are multiple erythematous 2- 4 millimeter lesions bilateral lower extremities which are generalized and consistent with insect bites. No signs of infection. Over the right gluteal area there is a 4 cm erythematous fluctuant area which does cause discomfort palpation. No necrosis or crepitus or ecchymosis. This does not juxtaposed with the rectal area. There is no drainage. - General General appearance: alert Course Vital Signs Temperature 97.9 F 01/13/17 08:17 Pulse Rate 115 01/13/17 08:17 Respiratory Rate 18 01/13/17 08:17 Blood Pressure 124/81 01/13/17 08:17 O2 Sat by Pulse Oximetry 93 01/13/17 08:17 Temperature 97.6 F 01/13/17 13:44 Pulse Rate 97 01/13/17 13:44 Respiratory Rate 16 01/13/17 13:44 Blood Pressure 112/74 01/13/17 13:44 O2 Sat by Pulse Oximetry 96 01/13/17 13:44 Oxygen Delivery Oxygen Delivery Room Air Skin/Abscess/Foreign Body - MDM Narrative Medical decision making narrative: I did review the patient's labs which are concerning specifically the leukocytosis, elevated lactate level, the patient does have tachycardia. He has given IV fluids, IV antibiotics, blood cultures, CT scan is pending to further evaluate for drainage of the patient's abscess in the operating room. The patient is conversational. Does have significant hyperglycemia likely from an acute process of the infection he does have a history of diabetes 1055 Review the patient's test results. The patient is admitted. Surgery was consulted. - Medical Records Medical records reviewed: Yes I reviewed the patient's medical records. - Lab Data Lab results reviewed: Yes I reviewed the patient's lab results. Result diagrams: 01/13/17 09:29 01/13/17 09:29 Lab Results 01/13/17 01/13/17 01/13/17 Range/Units 09:29 09:29 09:33 WBC 13.0 H (4.3-11.1) K/mcL RBC 5.02 (4.19-5.50) M/mcL Hgb 15.4 (12.9-16.9) g/dL Hct 46.1 (37.5-50.1) % MCV 91.8 (83.0-100.0) fL MCH 30.7 (28.0-33.3) pg MCHC 33.4 (31.6-35.5) g/dL RDW 14.4 (11.5-14.5) % Plt Count 255 (140-400) K/mcL MPV 10.5 (9.4-12.4) fL PT (9.4-12.1) Seconds INR APTT (26.0-36.0) Seconds Sodium 128 L (136-145) mEq/L Potassium 4.0 (3.5-4.5) mEq/L Chloride 96 L (98-109) mEq/L Carbon Dioxide 22 (19-29) mEq/L BUN 8 (8-26) mg/dL Creatinine 0.78 (0.72-1.25) mg/dL Est GFR ( Amer) > 60 (> 60) Est GFR (Non-Af Amer) > 60 (> 60) BUN/Creatinine Ratio 10 (6-26) Glucose 486 H (70-99) mg/dL Calculated Osmolality 286 (280-300) Lactic Acid 2.4 H (0.5-2.2) mmol/L Calcium 9.0 (8.6-10.8) mg/dL 01/13/17 01/13/17 Range/Units 11:03 13:04 WBC (4.3-11.1) K/mcL RBC (4.19-5.50) M/mcL Hgb (12.9-16.9) g/dL Hct (37.5-50.1) % MCV (83.0-100.0) fL MCH (28.0-33.3) pg MCHC (31.6-35.5) g/dL RDW (11.5-14.5) % Plt Count (140-400) K/mcL MPV (9.4-12.4) fL PT 11.7 (9.4-12.1) Seconds INR 1.1 APTT 32.2 (26.0-36.0) Seconds Sodium (136-145) mEq/L Potassium (3.5-4.5) mEq/L Chloride (98-109) mEq/L Carbon Dioxide (19-29) mEq/L BUN (8-26) mg/dL Creatinine (0.72-1.25) mg/dL Est GFR ( Amer) (> 60) Est GFR (Non-Af Amer) (> 60) BUN/Creatinine Ratio (6-26) Glucose (70-99) mg/dL Calculated Osmolality (280-300) Lactic Acid 2.3 H (0.5-2.2) mmol/L Calcium (8.6-10.8) mg/dL - Radiology Data Radiology results reviewed: Yes I reviewed the patient's radiology results. Abdomen/Pelvis CT 01/13/17 09:26 IMPRESSION: Decreased size of an abscess in the right gluteal fold soft tissues measuring 3 x 1 cm (previously 3.8 x 2.1 cm). No other acute abnormality in the abdomen or pelvis. Scattered linear metallic radiodensities in the perineal soft tissues and inferior to the liver. D/ / 01/13/2017 11:32:04 Albino Baltazar MD / annmarie Interpreting Provider: Albino Baltazar MD
[2017-01-13] MEDS ORDERED: Vancomycin 2,000 MG in D5% in Water 500 ML IVPB ONE (10:43)
[2017-01-13] MEDS: 0.9 % Sodium Chloride 4,000 ML IVC SCH ×2 (10:50→11:37)
[2017-01-13 11:20] LABS: INR 1.1; Prothrombin Time 11.7 Seconds (9.4-12.1)
[2017-01-13 11:22] LABS: Activated Partial Thrombo Time 32.2 Seconds (26.0-36.0)
[2017-01-13] MEDS ORDERED: Ondansetron 4 MG/2 ML VIAL IVP PRN (13:16)
[2017-01-13] MEDS ORDERED: Naloxone 0.4 MG/ML INJ IVP PRN (13:16)
[2017-01-13] MEDS ORDERED: Acetaminophen 325 MG TABLET PO PRN (13:16)
[2017-01-13] MEDS ORDERED: Insulin Human Regular 10 UNIT in 0.9 % Sodium Chloride 10 ML IV ONE (13:28)
--- NOTE | 2017-01-13 13:51 | Internal Med History&Physical ---
<Josr Masters T - Last Filed: 01/13/17 14:54> Date of Encounter: 01/13/17 Internal Medicine - H&P: HPI History of present illness: Mr. Norris is a 46 year old male Internal Medicine - H&P: Meds Furosemide [Lasix] 20 mg PO DAILY #30 tablet 08/16/16 [Rx] hydrOXYzine pamoate [HydrOXYzine Pamoate] 25 mg PO Q8H PRN 11/10/16 [History] Atorvastatin [Lipitor] 20 mg PO HS #30 tablet 11/12/16 [Rx] Gabapentin [Neurontin] 300 mg PO TID 12/20/16 [History] Insulin LISPRO [HumaLOG] 10 units SQ TIDWM 12/20/16 [History] Insulin Glargine [Lantus] 40 unit SQ BID #0 12/23/16 [Rx] Menthol [Biofreeze] 1 appl TP BID PRN 01/13/17 [History] Nicotine Polacrilex [Nicotine Gum] 4 mg BC Q2H PRN 01/13/17 [History] Nystatin POWDER [Nystop] 1 appl TP BID 01/13/17 [History] OxyCODONE/APAP 10/325 [Percocet 10/325 MG] 1 tab PO Q6H PRN 01/13/17 [History] Polyvinyl Alcohol [Artificial Tears] 1 drop OP BID PRN 01/13/17 [History] Allergies aspirin [ASA] Allergy (Verified 12/20/16 20:44) Swelling of Lip/Tongue/Throat also rash Bleach (Sodium Hypochlorite) Allergy (Verified 12/30/16 21:28) Rash naproxen [From Naprosyn] Allergy (Verified 12/30/16 21:28) Rash All Systems PM: A 10-system review of systems was performed and is negative for pertinent findings except as documented above in the HPI. - Constitutional Vitals: Temp Pulse Resp BP Pulse Ox 97.6 F 97 16 112/74 96 01/13/17 13:44 01/13/17 13:44 01/13/17 13:44 01/13/17 13:44 01/13/17 13:44 Internal Med - H&P Results - Labs CBC & Chem 7: 01/13/17 09:29 01/13/17 09:29 - Attending Attestation I have independently seen and examined this patient, I have reviewed his EMR and discussed plan of care with the patient and SAMSON Diaz 46 M with Type II DM, uncontrolled, Morbid Obesity, Drug seeking behaviour who was recently discharged 11/2016 after management of R buttocks abscess and cellulitis This time, he represents with same symptoms On exam, he is warm to touch, in mild painful distress, tachycardic to 102, chest is CTAB, heart sounds S1, S2 only, no added sounds, abdomen is obese and not tender, upper and lower extremities with numerous bed bug bites, no edema, -R buttock and perineum with cellulitis and abscess, fluctuant with visible punctum, not actively draining labs and imaging reviewed: Leukocytosis with left shift, chemistry with pseudohyponatremia and hyperglycemia. Abd CT shows the abscess, same as prior with no progression A/P: Sepsis secondary to Right buttocks abscess, suspect ischio-rectal fossa abscess, agree with antibiotics, pain control, blood sugar control, continue Vanco and Zosyn. Repeat lactate, IVF hydration rest of details as in SAMSON Diaz's documentation, which I agree with. <Branodn Diaz Ethan - Last Filed: 01/13/17 15:07> Date of Encounter: 01/13/17 Time of Encounter: 12:45 Assessment and Plan (1) Sepsis Current visit: Yes Status: Acute Patient presents with current sepsis criteria: HR of 102-105 and WBC of 13.0. Patient's initial lactic acid was 2.4 in the ED. Will follow sepsis protocol with timed lactic acids, IV vancomycin with pharmacy/weight-based dosing and IV Zosyn 3.375 gm Q8, IV fluids following sepsis protocol, supplemental O2 with continuous SpO2 monitoring, continuous cardiac telemetry due to current tachycardia, blood cultures x 2, wound culture, and surgery consult ordered and placed. Will continue to monitor patient for signs of increased infection and cardiac/respiratory distress. Qualifiers: Sepsis type: sepsis due to unspecified organism Qualified Code(s): A41.9 - Sepsis, unspecified organism (2) Leukocytosis Current visit: Yes Status: Acute Patient presents with leukocytosis and initial WBC of 13.0. IV vancomycin and IV Zosyn started for infection coverage. Wound culture and blood cultures x2 ordered to identify organism and susceptibility. Follow-up labs ordered to monitor WBC. Qualifiers: Leukocytosis type: other Qualified Code(s): D72.828 - Other elevated white blood cell count (3) Abscess of right buttock Current visit: Yes Status: Acute Patient presents with abscess of right buttock that he was seen previously for and which required surgical intervention. Patient's current abscess measures approximately 4 cm and is erythematous, edematous, and painful to palpation. Wound culture ordered and surgery consult ordered. (4) Weakness Current visit: Yes Status: Acute Patient reports leg weakness associated with current pain and abscess of right buttock. Patient to be placed as follows precaution/me-saat-vcvsyg/bedrest with bathroom privileges with assist only due to leg weakness. (5) Diabetes Current visit: Yes Status: Chronic Patient presents with chronic diabetes with insulin dependency. On admission, patient's blood glucose was 486. Patient states that his diabetes is uncontrolled. Diabetic education ordered. Will continue patient's insulin dosing. IV insulin 10 units once ordered to address current hyperglycemia and to help control blood glucose for wound healing. A1c ordered. Low-dose correction insulin and hypoglycemia protocol ordered. 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 Lipid panel ordered. Will continue patient's Lipitor. Qualifiers: Hyperlipidemia type: pure hypercholesterolemia Qualified Code(s): E78.00 - Pure hypercholesterolemia, unspecified; E78.0 - Pure hypercholesterolemia (7) Tobacco abuse Current visit: Yes Status: Chronic Patient presents with chronic tobacco abuse. He states he currently smokes 1 PPD. Nicorette gum 4 mg Q2HR PRN ordered. (8) DVT prophylaxis Current visit: Yes Status: Acute Patient to be placed on DVT prophylaxis due to admission protocol and bed rest status. Heparin 5,000 units SQ Q8 ordered. Internal Medicine - H&P: HPI Chief complaint: Abscess on right buttock/insect bites on UEs/LEs Admitted From: Emergency Dept Plans for Post Hospital Care: Home History of present illness: Mr. Norris is a 46 year old male who presents from the ED with chief complaint of abscess on the right buttock which is edematous, erythematous, and painful. Patient believes the area is from a water moccasin bite from three weeks ago when he was at [facility]. Patient was seen previously for this problem with surgical intervention required. Patient also reports bites to his upper arms and lower legs bilaterally that are itching. He states that he stayed at a friends house several days ago and left with multiple bites to his extremities that are extremely itchy. Mr. Norris denies recent illness, SOB, generalized weakness, chest pain, palpitations, vision changes, pre-syncope, or syncope. Patient does report nausea with vomiting (last episode this morning), and dizziness. Patient also reports difficulty ambulating due to pain. Patient's current WBC is 13.0 on initial blood draw and initial lactic acid is 2.4. Patient is currently tachycardic with HR of 102-105. Patient currently meets sepsis criteria based on his WBC and HR so sepsis protocol is to be followed. IV vancomycin and IV Zosyn started in ED and will be continued with pharmacy/ weight-based dosing for IV vancomycin and IV Zosyn 3.375 gm Q8. Patient to be placed on continuous cardiac telemetry due to current tachycardia. Time lactic acids ordered and surgical consult placed by the ED. Will continue IV 0.9 NS fluids based on sepsis protocol. Blood cultures x2 and wound culture ordered. Patient's current glucose on admission is 486 and must be addressed to facilitate wound healing. IV insulin 10 units once ordered and will continue patient's IV insulin dosing from home with low-dose correction and hypoglycemia protocol ordered. Blood glucose ACHS ordered as well. SW and PT consults ordered to assess for possible home health needs post-discharge. Patient is at high risk for infection due to sepsis and placed as inpatient. Patient to be monitored closely for continued signs of infection through follow-up labs. Time spent with patient > 40 minutes. Past Med Surg Social Fam HX - Past Medical History Source: patient (Uncontrolled) Medical history: diabetes, other Psychiatric history: anxiety, depression, prior suicide attempt, schizophrenia, previous psychiatric hospitalization, other - Past Surgical History Surgical History: orthopedic, other (Right upper thigh, right hip with placement of rods/pins), other (Previous surgical intervention for abscess on right buttock) - Social History Smoking Status: Current every day smoker Packs per day: 1 PPD Smokeless Tobacco Status: No Alcohol use: none Drug use: none Current living situation: Home, With Family Activity Level: Independent ambulation, Uses cane/walker Recent Out of Country Travel Within the Last 8 Weeks: No Exposure or Possible Exposure to Illness During Travel: No - Family History Mother Race: Family Member Ethnicity: Non- Living Status: Age at : 73 Cause of : HD Hx Family Cardiac Disorders: Yes (HD, HTN, HLD) Hx Family Endocrine Disorder: Yes (DM) Father Race: Family Member Ethnicity: Non- Living Status: Age at : 35 Cause of : Shot and killed by police Hx Family Medical Disorders: No Brother Race: Family Member Ethnicity: Non- Living Status: Still Living Hx Family Cardiac Disorders: Yes (HD) Hx Family Endocrine Disorder: Yes (DM) Sister Race: Family Member Ethnicity: Non- Living Status: Still Living Hx Family Cardiac Disorders: Yes (HD) Hx Family Endocrine Disorder: Yes (DM) All Systems PM: A 10-system review of systems was performed and is negative for pertinent findings except as documented above in the HPI. - Constitutional Constitutional: no chills, no fever(s), no night sweats - EENT Eyes: no change in vision, no discharge, no pain, no photophobia Ears: no ear discharge, no ear pain, no tinnitus Nose, mouth and throat: no dysphagia, no nasal discharge, no neck pain, no sore throat - Breasts Breasts: as per HPI - Cardiovascular Cardiovascular ROS IM: no chest pain, no diaphoresis, no dyspnea, no lightheadedness, no palpitations, no syncope - Respiratory Respiratory: no cough, no dyspnea, no wheezing, no excessive phlegm production - Gastrointestinal Gastrointestinal: as per HPI, nausea, vomiting - Genitourinary Genitourinary ROS male: as per HPI - Musculoskeletal Musculoskeletal ROS IM: as per HPI, other (Patient reports chronic pain in right hip and leg due to previous injury/surgery), no numbness, no tingling - Integumentary Integumentary IM: other (Multiple bug bites to UEs and LEs, abscess on right buttock approximately 4 cm in size that is erythematous, edematous, and painful to palpation) - Neurological Neurological ROS: as per HPI, dizziness, no confusion, no convulsions, no focal weakness, no numbness, no tingling, no tremor(s) - Psychiatric Psychiatric: as per HPI - Endocrine Endocrine IM: as per HPI - Hematologic/Lymphatic Hematologic/Lymphatic: no easy bruising - Allergic/Immunologic Allergic/Immunologic: as per HPI - Constitutional Vitals: Temp Pulse Resp BP Pulse Ox 97.9 F 90 16 147/97 99 01/13/17 08:17 01/13/17 11:02 01/13/17 12:51 01/13/17 12:51 01/13/17 11:02 General appearance: Present: cooperative, A&O X 3, morbidly obese, severe distress (Pain in right buttock d/t abscess), answers questions appropriately - Head Head exam: Present: atraumatic, normocephalic - Eye Eye exam: Present: PERRL, conjuntiva pink, sclera anicteric Pupils: Present: PERRL - ENT ENT exam: Present: normal exam, normal external ear exam - Neck Neck exam general surgery: Present: supple, trachea midline. Absent: lymphadenopathy - Respiratory Respiratory exam: Present: CTAB. Absent: accessory muscle use, rales, rhonchi, wheezes - Cardiovascular Cardiovascular exam: Present: +S1, +S2, tachycardia. Absent: diastolic murmur, gallop, rubs, systolic murmur - GI/Abdominal GI/Abdominal exam: Present: normal bowel sounds, soft, no peritoneal signs. Absent: distended, tenderness - Rectal Rectal exam: Present: deferred - External exam: Present: swelling (Right buttock with approximate 4 cm abscess) - Extremities Exam Extremities exam: Present: warm, radial pulses palpable and symetrical Additional comments: Patient has multiple bug bites to UEs and LEs that are red and some with scabbing. Patient reports they are extremely itchy. - Back Exam Back exam: Present: normal inspection - Neurological Exam Neurological exam: Present: alert, oriented X3, reflexes normal, strengths equal and symetr throughout - Psychiatric Psychiatric exam: Present: normal affect, normal mood - Skin Skin exam: Present: dry, intact Internal Med - H&P Results - Labs CBC & Chem 7: 01/13/17 09:29 01/13/17 09:29 - Diagnostic Studies CT scan - abdomen Additional comments: Impressions Abdomen/Pelvis CT 01/13/17 09:26 IMPRESSION: Decreased size of an abscess in the right gluteal fold soft tissues measuring 3 x 1 cm (previously 3.8 x 2.1 cm). No other acute abnormality in the abdomen or pelvis. Scattered linear metallic radiodensities in the perineal soft tissues and inferior to the liver. D/ / 01/13/2017 11:32:04 Albino Baltazar MD / annmarie Interpreting Provider: Albino Baltazar MD
[2017-01-13] MEDS ORDERED: Vancomycin 2,000 MG in D5% in Water 250 ML IVPB SCH (14:00)
[2017-01-13] MEDS ORDERED: Lidocaine 1% 20 ML MDV INFILT ONE (14:27)
[2017-01-13] MEDS: Pantoprazole 40 MG VIAL IVP SCH (14:28)
[2017-01-13] MEDS: *HR* Morphine 2 MG/ML SYRINGE IVP PRN ×3 (14:28→22:49)
[2017-01-13] MEDS: Gabapentin 300 MG CAPSULE PO SCH ×2 (14:29→21:04)
[2017-01-13] MEDS ORDERED: 0.9 % Sodium Chloride 1,000 ML IVC SCH (15:15)
--- NOTE | 2017-01-13 15:20 | General Surgery Consult Note ---
Date of Encounter: 01/13/17 Time of Encounter: 15:17 Assessment and Plan (1) Abscess of right buttock Current Visit: Yes Status: Acute CT of abd and pelvis demonstrates abscess in the right gluteal fold and exam yielded an area of fluctuance I&D was performed today with moderate amount of purulent fluid. Wound cultures sent. IV antibiotics - Vancomycin and Zosyn IV fluids Diabetic diet Pain control Supportive care Daily wound care - wash with soap and water, packing with iodoform, 4x4 or abd, tape Encourage ICS and ambulate as tolerated Discharge planning - Likely in 1-2 days with PO abx and outpatietn wound care vs HH if able (2) Sepsis Current Visit: Yes Status: Acute Vitals are now stable. Initial lacitc acid draw was 2.3. Recheck ordered. Blood cultures were taken. Medicine following. Qualifiers: Sepsis type: sepsis due to unspecified organism Qualified Code(s): A41.9 - Sepsis, unspecified organism (3) Uncontrolled diabetes mellitus Current Visit: Yes Status: Acute Defer management to medicine. 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 Norris is a very pleasnat 46 year old [place] male with a PMH of uncontrolled DM2, anxiety, depression and schizophrenia who presents to the [facility] Emergency Department with a chief complaint of right gluteal pain for a duration of 3-4 weeks. Patient was recently discharged from [facility] on 12/23/16 for similar complaints and underwent an I&D of his right buttock abscess. He was given Augmentin and Keflex on discharge. Wound cultures taken during that hospital stay on 12/20/16 grew out Klebsiella, E. Coli and GBS. Patient reports the "soreness and pain" improved initially and has progressively worsened. On arrival to the ED, he was tachycardic, WBC 13, glucose of 486 and lactic acid of 2.3. Sepsis protocol was initiated and blood cultures taken. Mr. Norris was subsequently admitted under the hospitalist service and started on pain control, IV fluids, IV vancomycin and zosyn. Ct of abdomen and pelvis demonstrated an abscess in the right gluteal fold that has decreased slightly in size from previous study and thus, surgery was consulted. After evaluation, we will continue IV antibiotics, pain control and proceed with I&D of his right gluteal abscess. Will continue to follow and offer recommendations as appropriate. Past Med Surg Social Fam HX - Past Medical History Medical history: diabetes, other Psychiatric history: anxiety, depression, prior suicide attempt, schizophrenia, previous psychiatric hospitalization, other - Past Surgical History Surgical History: orthopedic, other (Right upper thigh, right hip with placement of rods/pins), other (Previous surgical intervention for abscess on right buttock) - Social History Smoking Status: Current every day smoker Packs per day: 1 PPD Smokeless Tobacco Status: No Alcohol use: none Drug use: none - Family History Mother History Unknown: Yes Race: Family Member Ethnicity: Non- Living Status: Age at : 73 Cause of : HD Hx Family Cardiac Disorders: Yes (HD, HTN, HLD) Hx Family Endocrine Disorder: Yes (DM) Father History Unknown: Yes Race: Family Member Ethnicity: Non- Living Status: Age at : 35 Cause of : Shot and killed by police Hx Family Medical Disorders: No Brother Race: Family Member Ethnicity: Non- Living Status: Still Living Hx Family Cardiac Disorders: Yes (HD) Hx Family Endocrine Disorder: Yes (DM) Sister Race: Family Member Ethnicity: Non- Living Status: Still Living Hx Family Cardiac Disorders: Yes (HD) Hx Family Endocrine Disorder: Yes (DM) Medications and Allergies Furosemide [Lasix] 20 mg PO DAILY #30 tablet 08/16/16 [Rx] hydrOXYzine pamoate [HydrOXYzine Pamoate] 25 mg PO Q8H PRN 11/10/16 [History] Atorvastatin [Lipitor] 20 mg PO HS #30 tablet 11/12/16 [Rx] Gabapentin [Neurontin] 300 mg PO TID 12/20/16 [History] Insulin LISPRO [HumaLOG] 10 units SQ TIDWM 12/20/16 [History] Insulin Glargine [Lantus] 40 unit SQ BID #0 12/23/16 [Rx] Menthol [Biofreeze] 1 appl TP BID PRN 01/13/17 [History] Nicotine Polacrilex [Nicotine Gum] 4 mg BC Q2H PRN 01/13/17 [History] Nystatin POWDER [Nystop] 1 appl TP BID 01/13/17 [History] OxyCODONE/APAP 10/325 [Percocet 10/325 MG] 1 tab PO Q6H PRN 01/13/17 [History] Polyvinyl Alcohol [Artificial Tears] 1 drop OP BID PRN 01/13/17 [History] Allergies aspirin [ASA] Allergy (Verified 12/20/16 20:44) Swelling of Lip/Tongue/Throat also rash Bleach (Sodium Hypochlorite) Allergy (Verified 12/30/16 21:28) Rash naproxen [From Naprosyn] Allergy (Verified 12/30/16 21:28) Rash Review of Systems All systems PM: A 10-system review of systems was performed and is negative for pertinent findings except as documented above in the HPI. - Constitutional no fever(s) - Cardiovascular no chest pain - Respiratory dyspnea on exertion - Gastrointestinal dyspepsia - Genitourinary no dysuria - Musculoskeletal muscle cramps - Integumentary as per HPI - Neurological no headache(s) - Psychiatric anxiety General Surgery Exam Initial Vital Signs Temp Pulse Resp BP Pulse Ox 97.9 F 115 18 124/81 93 01/13/17 08:17 01/13/17 08:17 01/13/17 08:17 01/13/17 08:17 01/13/17 08:17 - General physical appearance no distress, obese (morbid) - Eyes normal ocular movement - Neck trachea midline - Respiratory normal expansion, clear to auscultation - Cardiovascular Cardiovascular exam: Present: RRR - Integumentary Integumentary general surgery: Present: other (right buttock - previous incision present without erythema or drainage. area just superior that has fluctuance and induration present) - Neurologic Present: CN 2-12 grossly intact - Psychiatric Psychiatric general surgery: Present: A&Ox3 Exam Initial Vital Signs Temp Pulse Resp BP Pulse Ox 97.9 F 115 18 124/81 93 01/13/17 08:17 01/13/17 08:17 01/13/17 08:17 01/13/17 08:17 01/13/17 08:17 Results - Labs 01/13/17 09:29 01/13/17 09:29 Short CBC 01/13/17 Range/Units 09:29 WBC 13.0 H (4.3-11.1) K/mcL Hgb 15.4 (12.9-16.9) g/dL Hct 46.1 (37.5-50.1) % Plt Count 255 (140-400) K/mcL BMP 01/13/17 Range/Units 09:29 Sodium 128 L (136-145) mEq/L Potassium 4.0 (3.5-4.5) mEq/L Chloride 96 L (98-109) mEq/L Carbon Dioxide 22 (19-29) mEq/L BUN 8 (8-26) mg/dL Creatinine 0.78 (0.72-1.25) mg/dL Glucose 486 H (70-99) mg/dL Calcium 9.0 (8.6-10.8) mg/dL Vital Signs Temp Pulse Resp BP Pulse Ox 01/13/17 13:44 97.6 F 97 16 112/74 96 01/13/17 12:51 16 147/97 01/13/17 11:02 90 18 134/88 99 01/13/17 08:17 97.9 F 115 18 124/81 93 Intake and Output 01/12/17 01/13/17 01/13/17 23:59 07:59 15:59 Intake Total 2100 / 2100 Output Total 950 / 950 Balance 1150 / 1150 Intake: IV Fluids 2099 / 2099 0.9 % Sodium Chloride 4, 2000 / 2000 000 ML @ 3750 mls/hr IVC .Q1H4M [facility] Rx#:[id number] Zosyn 4.5 GM In Dextrose 100 / 100 5% (Minibag+) 100 ML 100 ML @ 100 mls/hr IVPB ONCE ONE Rx#:[id number] Output: Urine 950 / 950 Other: Weight 134.887 kg Blood Glucose* 486 Patient Weight 01/13/17 23:59 Weight 134.887 kg Procedures: General Surgery - Abscess I/D Consent obtained: written consent Site: buttock Side (if applicable): right Anesthetic used: lidocaine 1% Technique: incised with #11 blade Packing used: .50 inch iodoform Packing size: 1/2" Complications: bleeding Additional comments: After informed consent was obtained and timeout performed, the patient was placed in her right lateral recumbent position. His right buttock was prepped with Betadine. After prepping the affected area, he was localized with 10 mL's of 1% lidocaine. After achieving appropriate localization, an incision was made over the area of fluctuance. There was immediate drainage of moderate amounts of purulent material. The abscess cavity was opened and decompressed with the use of a hemostat. After decompressing the abscess cavities, cultures were obtained for Gram stain, aerobic cultures, and anaerobic cultures. The cavity then was packed with half-inch iodoform gauze, covered with 4 x 4's, covered with an ABD pad and tape to secure. There are no complications noted. 5 mL of blood loss. Consult Discharge Plan - Plan Referrals: NO,PCP [Primary Care Provider] -
[2017-01-13] MEDS: *HR* Heparin 5,000 UNIT/ML VIAL SQ SCH ×2 (15:48→22:49)
[2017-01-13] MEDS: *HR* HYDROcodone/Acet 5/325 mg TABLET PO PRN ×2 (15:57→21:03)
[2017-01-13 16:59] LABS: Amphetamine Screen,Urine Negative ng/mL (Cutoff=1000); Barbiturate Screen,Urine Negative ng/mL (Cutoff=200); Benzodiazepines Screen,Urine Negative ng/mL (Cutoff=200); Cannabinoid Screen,Urine Negative ng/mL (Cutoff = 50); Cocaine Screen,Urine Negative ng/mL (Cutoff= 300); Opiate Screen,Urine Positive ng/mL (Cutoff=300); Phencyclidine Screen,Urine Negative ng/mL (Cutoff=25)
[2017-01-13] MEDS ORDERED: Insulin LISPRO 300 UNITS/3 ML VIAL SQ SCH (17:00)
[2017-01-13] MEDS: Piperacillin/Tazobactam 3.375 GM in D5% in Water (Mini-Bag+) 100 ML IVPB SCH (18:51)
[2017-01-13] MEDS: Nystatin POWDER 30 GM BOTTLE TP SCH (21:03)
[2017-01-13] MEDS: Insulin DETEMIR 100 UNIT/ML X5UNITS SQ SCH (21:04)
[2017-01-13] MEDS: hydrOXYzine pamoate 25 MG CAPSULE PO PRN (21:04)
[2017-01-13] MEDS: Vancomycin 2,000 MG in D5% in Water 500 ML IVPB SCH (22:32)
[2017-01-14] MEDS: Piperacillin/Tazobactam 3.375 GM in D5% in Water (Mini-Bag+) 100 ML IVPB SCH ×3 (03:28→19:33)
[2017-01-14] MEDS: *HR* HYDROcodone/Acet 5/325 mg TABLET PO PRN (03:29)
[2017-01-14 04:41] LABS: Basophils # 0.1 K/mcL (0.0-0.2); Basophils % 0.7 %; Eosinophils # 0.4 K/mcL (0.0-0.6); Eosinophils % 3.8 %; Hematocrit 45.5 % (37.5-50.1); Hemoglobin 14.5 g/dL (12.9-16.9); Immature Granulocytes % 0.7 % (0-4); Lymphocytes # 2.6 K/mcL (0.6-4.6); Lymphocytes % 28.1 %; Mean Corpuscular HGB Conc 31.9 g/dL (31.6-35.5); Mean Corpuscular Hemoglobin 30.1 pg (28.0-33.3); Mean Corpuscular Volume 94.4 fL (83.0-100.0); Mean Platelet Volume 10.5 fL (9.4-12.4); Monocytes # 0.6 K/mcL (0.0-1.3); Monocytes % 6.1 %; Neutrophils # 5.6 K/mcL (1.6-8.9); Platelet Count 212 K/mcL (140-400); Red Blood Count 4.82 M/mcL (4.19-5.50); Red Cell Distribution Width 14.5 % (11.5-14.5); Segmented Neutrophils % 60.6 %
[2017-01-14 04:56] LABS: Calcium 8.6 mg/dL (8.6-10.8); Carbon Dioxide 24 mEq/L (19-29); Chloride 101 mEq/L (98-109); Chol/HDL Ratio 9.2 (0-4.9); Cholesterol 220 mg/dL (< 200); Glucose 456 mg/dL (70-99); HDL Cholesterol 24 mg/dL (40-59); Magnesium 1.6 mg/dL (1.6-2.6); Osmolality,Calculated 287 (280-300); Potassium 4.2 mEq/L (3.5-4.5); Sodium 130 mEq/L (136-145); Triglycerides 663 mg/dL (< 150); eGFR For African Americans > 60 (> 60); eGFR For Non-African Americans > 60 (> 60)
[2017-01-14 05:39] LABS: Estimated Average Glucose > 355 mg/dl; Hemoglobin A1C >= 14.1 %
[2017-01-14 05:41] LABS: BUN/Creatinine Ratio 6 (6-26)
[2017-01-14 05:42] LABS: Blood Urea Nitrogen 5 mg/dL (8-26)
[2017-01-14] MEDS ORDERED: Insulin LISPRO 300 UNITS/3 ML VIAL SQ STA (06:49)
[2017-01-14] MEDS: *HR* Morphine 2 MG/ML SYRINGE IVP PRN ×4 (06:59→20:20)
--- NOTE | 2017-01-14 07:16 | General Surgery Progress Note ---
<Gil Springer - Last Filed: 01/14/17 09:09> Date of Encounter: 01/14/17 Time of Encounter: 07:14 - Assessment and Plan (1) Abscess of right buttock Current Visit: Yes Status: Acute CT of abd and pelvis demonstrates abscess in the right gluteal fold and exam yielded an area of fluctuance I&D was performed on 01/13/2017 with moderate amount of purulent fluid. Wound cultures pending IV antibiotics - Vancomycin and Zosyn IV fluids Diabetic diet Pain control - Switched [place] to his home Percocet 10 q6hrs Supportive care Daily wound care - wash with soap and water, packing with iodoform, 4x4 or abd, tape Encourage ICS and ambulate as tolerated Discharge planning - Adequate diabetic education is necessary to help prevent these recurrent wound infections. Social work consulted for discharge needs with being evicted from home recently and wound care from if possible. (2) Sepsis Current Visit: Yes Status: Acute Afebrile, pulse 88 Currently on vancomycin and Zosyn Cultures pending Medicine following. Qualifiers: Sepsis type: sepsis due to unspecified organism Qualified Code(s): A41.9 - Sepsis, unspecified organism (3) Uncontrolled diabetes mellitus Current Visit: Yes Status: Acute Blood sugar is not controlled. Hemoglobin A1c today was greater than 14. Defer management to medicine. Qualifiers: Diabetes mellitus type: type 2 Diabetes mellitus complication status: with hyperglycemia Diabetes mellitus manager long term care insulin use: unspecified snf insulin use status Qualified Code(s): E11.65 - Type 2 diabetes mellitus with hyperglycemia (4) Morbid obesity with BMI of 40.0-44.9, adult Current Visit: Yes Status: Chronic (5) Tobacco abuse Current Visit: Yes Status: Chronic Nicotine patch PRN (6) Hyperlipidemia Current Visit: Yes Status: Chronic Qualifiers: Hyperlipidemia type: mixed hyperlipidemia Qualified Code(s): E78.2 - Mixed hyperlipidemia (7) DVT prophylaxis Current Visit: Yes Status: Acute Heparin Ambulate as tolerated Subjective Patient reports: still having pain, tolerating a regular diet (Diabetic), voiding w/o difficulty, afebrile Narrative: Patient states that he is on Percocet 10 at home and has been out for 2 weeks. The morphine he is receiving in the hospital was not adequate. He is requesting Dilaudid. Objective Vital Signs - Last 8 Hours Temp Pulse Resp BP Pulse Ox 01/14/17 06:30 97.7 F 90 15 153/86 96 01/14/17 03:10 98.0 F 88 14 121/74 96 Intake and Output 01/13/17 01/13/17 01/14/17 15:59 23:59 07:59 Intake Total 1000 / 2100 580 / 580 120 / 120 Output Total 950 / 950 1200 / 1200 1200 / 1200 Balance 50 / 1150 -620 / -620 -1080 / -1080 Intake: IV Fluids 1000 / 2000 100 / 100 0.9 % Sodium Chloride 4, 1000 / 2000 000 ML @ 3750 mls/hr IVC .Q1H4M [facility] Rx#:[id number] Zosyn 3.375 GM In 100 / 100 Dextrose 5% (Minibag+) 100 ML 100 ML @ 25 mls/hr IVPB Q8H [facility] Rx#: [id number] Oral 480 / 480 120 / 120 Output: Urine 950 / 950 1200 / 1200 1200 / 1200 Other: Meal Dinner Percent of Meal Consumed 100% Weight 134.887 kg 134.717 kg Blood Glucose* 486 285 409 Patient Weight 01/14/17 23:59 Weight 134.717 kg - General physical appearance no distress, obese (Morbidly) - Eyes normal ocular movement - Neck Neck exam: trachea midline - Respiratory normal expansion, normal respiratory effort, clear to auscultation - Cardiovascular Cardiovascular exam: Present: RRR, murmurs (FIDENCIO) - Abdomen Abdomen: Present: bowel sounds present, soft, non tender, wound (Right buttock - dressing present with saturated 4 x 4's. Packing present. Erythema and blanching noted.) - Neurologic CN 2-12 grossly intact - Psychiatric oriented to time, oriented to person, oriented to place, speech is normal, memory intact - Labs 01/14/17 04:07 01/14/17 04:07 Short CBC 01/14/17 01/13/17 Range/Units 04:07 09:29 WBC 9.2 13.0 H (4.3-11.1) K/mcL Hgb 14.5 15.4 (12.9-16.9) g/dL Hct 45.5 46.1 (37.5-50.1) % Plt Count 212 255 (140-400) K/mcL Neutrophils # 5.6 (1.6-8.9) K/mcL BMP 07/21/17 07/20/17 Range/Units 04:07 09:29 Sodium 130 L 128 L (136-145) mEq/L Potassium 4.2 4.0 (3.5-4.5) mEq/L Chloride 101 96 L (98-109) mEq/L Carbon Dioxide 24 22 (19-29) mEq/L BUN 5 L 8 (8-26) mg/dL Creatinine 0.83 0.78 (0.72-1.25) mg/dL Glucose 456 H 486 H (70-99) mg/dL Calcium 8.6 9.0 (8.6-10.8) mg/dL Cardiac Enzymes 01/14/17 Range/Units 04:07 Troponin I 0.00 (0-0.03) ng/mL Vital Signs Temp Pulse Resp BP Pulse Ox 01/14/17 06:30 97.7 F 90 15 153/86 96 01/14/17 03:10 98.0 F 88 14 121/74 96 01/13/17 22:30 98.1 F 90 14 124/77 91 01/13/17 17:55 98.4 F 102 14 111/72 92 01/13/17 13:44 97.6 F 97 16 112/74 96 01/13/17 12:51 16 147/97 01/13/17 11:02 90 18 134/88 99 01/13/17 08:17 97.9 F 115 18 124/81 93 Intake and Output 01/13/17 01/13/17 01/14/17 15:59 23:59 07:59 Intake Total 2099 / 2099 580 / 580 120 / 120 Output Total 950 / 950 1200 / 1200 1200 / 1200 Balance 1150 / 1150 -620 / -620 -1080 / -1080 Intake: IV Fluids 2099 / 2099 100 / 100 0.9 % Sodium Chloride 4, 2000 / 2000 000 ML @ 3750 mls/hr IVC .Q1H4M [facility] Rx#:[id number] Zosyn 3.375 GM In 100 / 100 Dextrose 5% (Minibag+) 100 ML 100 ML @ 25 mls/hr IVPB Q8H [facility] Rx#: [id number] Zosyn 4.5 GM In Dextrose 100 / 100 5% (Minibag+) 100 ML 100 ML @ 100 mls/hr IVPB ONCE ONE Rx#:[id number] Oral 480 / 480 120 / 120 Output: Urine 950 / 950 1200 / 1200 1200 / 1200 Other: Meal Dinner Percent of Meal Consumed 100% Weight 134.887 kg 134.717 kg Blood Glucose* 486 285 409 Patient Weight 01/14/17 23:59 Weight 134.717 kg Consult Discharge Plan - Plan Additional Instructions: Okay to shower and remove packing with soap and water. Do not go swimming or soak in bath for 2 weeks. Wound care instructions - daily removal of packing, wash with soap and water, pack with 1/4 inch iodoform gauze, 4 x 4 dressing and tape to secure Home health to manage wound care for 1 week. Referrals: Eden Murrieta MD [Non-Partnered Physician] - <Jasper Leonardo - Last Filed: 01/16/17 12:43> Date of Encounter: 01/16/17 Objective Vital Signs - Last 8 Hours Temp Pulse Resp BP Pulse Ox 01/16/17 10:45 98.1 F 95 18 120/77 93 01/16/17 07:35 97.8 F 77 15 96/61 95 Intake and Output 01/15/17 01/16/17 01/16/17 23:59 07:59 15:59 Intake Total 460 / 460 720 / 720 240 / 240 Output Total 0 / 0 875 / 875 1150 / 1150 Balance 460 / 460 -155 / -155 -910 / -910 Intake: IV Fluids 100 / 100 600 / 600 Zosyn 3.375 GM In 100 / 100 100 / 100 Dextrose 5% (Minibag+) 100 ML 100 ML @ 25 mls/hr IVPB Q8H [facility] Rx#: [id number] Vancocin 2,000 MG In 500 / 500 Dextrose 5% 500 ML @ 250 mls/hr IVPB Q12H [facility] Rx#: [id number] Oral 360 / 360 120 / 120 240 / 240 Output: Urine 0 / 0 875 / 875 1150 / 1150 Other: Meal Dinner Breakfast Percent of Meal Consumed 80% 100% Weight 135.125 kg Blood Glucose* 307 317 273 Patient Weight 01/16/17 23:59 Weight 135.125 kg - Labs 01/15/17 06:36 01/16/17 03:03 Diabetes panel 01/16/17 Range/Units 03:03 Sodium 130 L (136-145) mEq/L Potassium 4.1 (3.5-4.5) mEq/L Chloride 95 L (98-109) mEq/L Carbon Dioxide 25 (19-29) mEq/L BUN 11 (8-26) mg/dL Creatinine 0.81 (0.72-1.25) mg/dL Glucose 332 H (70-99) mg/dL Calcium 9.2 (8.6-10.8) mg/dL AST 148 H (5-34) Units/L ALT 98 H (0-55) Units/L Alkaline Phosphatase 160 H (38-126) Units/L Albumin 2.7 L (3.5-5.0) g/dL Calcium panel 01/16/17 Range/Units 03:03 Calcium 9.2 (8.6-10.8) mg/dL Albumin 2.7 L (3.5-5.0) g/dL Pituitary panel 01/16/17 Range/Units 03:03 Sodium 130 L (136-145) mEq/L Potassium 4.1 (3.5-4.5) mEq/L Chloride 95 L (98-109) mEq/L Carbon Dioxide 25 (19-29) mEq/L BUN 11 (8-26) mg/dL Creatinine 0.81 (0.72-1.25) mg/dL Glucose 332 H (70-99) mg/dL Calcium 9.2 (8.6-10.8) mg/dL Adrenal panel 01/16/17 Range/Units 03:03 Sodium 130 L (136-145) mEq/L Potassium 4.1 (3.5-4.5) mEq/L Chloride 95 L (98-109) mEq/L Carbon Dioxide 25 (19-29) mEq/L BUN 11 (8-26) mg/dL Creatinine 0.81 (0.72-1.25) mg/dL Glucose 332 H (70-99) mg/dL Calcium 9.2 (8.6-10.8) mg/dL Total Bilirubin 0.6 (0.2-1.2) mg/dL AST 148 H (5-34) Units/L ALT 98 H (0-55) Units/L Alkaline Phosphatase 160 H (38-126) Units/L Albumin 2.7 L (3.5-5.0) g/dL - Attending Attestation I reviewed the above assessment and plan and agree with the above. Continue with IV abx and dressing changes.
[2017-01-14] MEDS ORDERED: *HR* Dextrose 50 % in Water (Syg) 50 ML SYRINGE IVP PRN (07:25)
[2017-01-14] MEDS ORDERED: Dextrose Gel 15 GM PO PRN ×2 (07:25)
[2017-01-14] MEDS ORDERED: D5% in Water 1,000 ML IVC PRN (07:25)
[2017-01-14] MEDS: Furosemide 20 MG TABLET PO SCH (08:40)
[2017-01-14] MEDS: Gabapentin 300 MG CAPSULE PO SCH ×2 (08:40→14:06)
[2017-01-14] MEDS: *HR* Heparin 5,000 UNIT/ML VIAL SQ SCH ×3 (08:41→23:23)
[2017-01-14] MEDS: Pantoprazole 40 MG VIAL IVP SCH (08:41)
[2017-01-14] MEDS: *HR* OxyCODONE/APAP 10/325 TABLET PO PRN ×3 (08:41→23:23)
[2017-01-14] MEDS: Insulin DETEMIR 100 UNIT/ML X5UNITS SQ SCH ×2 (08:42→20:24)
[2017-01-14] MEDS: Insulin LISPRO 300 UNITS/3 ML VIAL SQ SCH ×7 (09:06→20:26)
[2017-01-14] MEDS: Artificial Tears SOLN 15 ML BOTTLE OP PRN (09:10)
[2017-01-14] MEDS: Nystatin POWDER 30 GM BOTTLE TP SCH ×2 (09:11→20:25)
[2017-01-14] MEDS: Vancomycin 2,000 MG in D5% in Water 500 ML IVPB SCH ×2 (11:20→23:22)
--- NOTE | 2017-01-14 16:21 | Internal Med Progress Note ---
Date of Encounter: 01/14/17 Time of Encounter: 10:00 - Assessment and plan (1) Sepsis Current Visit: Yes Status: Acute Assessment and plan: On IV antibiotics. Wound culture growing group B streptococci. Prior wound cultures have grown enterococcus, Klebsiella and Escherichia coli. Patient is currently receiving vancomycin and Zosyn. We will continue these antibiotics for now. WBC count is improving. We will check ESR and CRP. Surgery following. Moderate risk for complications. Qualifiers: Sepsis type: sepsis due to unspecified organism Qualified Code(s): A41.9 - Sepsis, unspecified organism (2) Abscess of right buttock Current Visit: Yes Status: Acute Assessment and plan: Patient underwent incision and drainage of abscess yesterday. Moderate amount of purulent fluid was removed. Continue current management with IV antibiotics and local wound care. Follow recommendations from surgery. (3) Bilateral leg cramps Current Visit: Yes Status: Acute Assessment and plan: Could be related to neuropathy/restless legs syndrome. Patient on gabapentin 300 mg 3 times a day. We will increase dosage to see if it will help with his pain. No significant electrolyte abnormalities. Potassium levels are normal. (4) Diabetes Current Visit: Yes Status: Chronic Assessment and plan: Uncontrolled. Patient's blood sugar this morning was 456. Has been placed back on Levemir and nutritional plus correctional scale. We will follow blood sugars and adjust insulin dosage accordingly. 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 Physical therapy has been consulted. (8) DVT prophylaxis Current Visit: Yes Status: Acute Assessment and plan: Subcutaneous heparin - Subjective Interval history: Patient complains of leg cramps and pain in his gluteal region. Unchanged compared to yesterday. No fever or chills reported overnight. - Constitutional Vitals: Temp Pulse Resp BP Pulse Ox 98.6 F 99 16 110/65 95 01/14/17 15:48 01/14/17 15:48 01/14/17 15:48 01/14/17 15:48 01/14/17 15:48 General appearance: Present: cooperative, mild distress, A&O X 3, morbidly obese , answers questions appropriately - Eye Eye exam: Present: EOMI, PERRL, conjuntiva pink, sclera anicteric - Respiratory Respiratory exam: Present: CTAB. Absent: accessory muscle use, rales, rhonchi, wheezes - Cardiovascular Cardiovascular exam: Present: RRR, +S1, +S2. Absent: diastolic murmur, gallop, rubs, systolic murmur - GI/Abdominal GI/Abdominal exam: Present: normal bowel sounds, soft, no peritoneal signs. Absent: distended, tenderness - Extremities Exam Extremities exam: Present: warm, radial pulses palpable and symetrical. Absent : calf tenderness, cyanotic, pedal edema - Neurological Exam Neurological exam: Present: CN II-XII intact, oriented X3, no focal deficits. Absent: facial droop, speech deficit - Skin Skin exam: Present: dry, intact Additional comments: Erythema and swelling with induration in the gluteal region especially on the right buttock with extension over the perineum. Internal Medicine: Result - Labs CBC & Chem 7: 01/14/17 04:07 01/14/17 04:07 Labs: Short CBC 01/14/17 Range/Units 04:07 WBC 9.2 (4.3-11.1) K/mcL Hgb 14.5 (12.9-16.9) g/dL Hct 45.5 (37.5-50.1) % Plt Count 212 (140-400) K/mcL Neutrophils # 5.6 (1.6-8.9) K/mcL BMP 01/14/17 04:07 Sodium 130 L Potassium 4.2 Chloride 101 Carbon Dioxide 24 BUN 5 L Creatinine 0.83 Glucose 456 H Calcium 8.6 Cardiac Enzymes 01/14/17 Range/Units 04:07 Troponin I 0.00 (0-0.03) ng/mL - ABG Interpretation ABG results: PT/INR, D-dimer PT 11.7 Seconds (9.4-12.1) 01/13/17 11:03 Consult Discharge Plan - Plan Referrals: Eden Murrieta MD [Non-Partnered Physician] -
[2017-01-14] MEDS: Ketorolac 30 MG/ML VIAL IVP PRN (16:45)
[2017-01-14] MEDS: hydrOXYzine pamoate 25 MG CAPSULE PO PRN (20:24)
[2017-01-14] MEDS: Gabapentin 400 MG CAPSULE PO SCH (20:24)
[2017-01-14] MEDS: Nicotine 2 MG GUM BC PRN (20:24)
[2017-01-15] MEDS: Piperacillin/Tazobactam 3.375 GM in D5% in Water (Mini-Bag+) 100 ML IVPB SCH ×3 (04:08→21:55)
[2017-01-15] MEDS: Ketorolac 30 MG/ML VIAL IVP PRN (05:54)
[2017-01-15 06:54] LABS: Basophils # 0.1 K/mcL (0.0-0.2); Basophils % 0.5 %; Eosinophils # 0.5 K/mcL (0.0-0.6); Eosinophils % 5.2 %; Hematocrit 47.7 % (37.5-50.1); Hemoglobin 15.5 g/dL (12.9-16.9); Immature Granulocytes % 0.7 % (0-4); Lymphocytes # 2.7 K/mcL (0.6-4.6); Lymphocytes % 29.1 %; Mean Corpuscular HGB Conc 32.5 g/dL (31.6-35.5); Mean Corpuscular Hemoglobin 30.3 pg (28.0-33.3); Mean Corpuscular Volume 93.3 fL (83.0-100.0); Mean Platelet Volume 10.5 fL (9.4-12.4); Monocytes # 0.6 K/mcL (0.0-1.3); Monocytes % 6.6 %; Neutrophils # 5.4 K/mcL (1.6-8.9); Nucleated Red Blood Cells 0.2 /100 WBC (0); Platelet Count 255 K/mcL (140-400); Red Blood Count 5.11 M/mcL (4.19-5.50); Red Cell Distribution Width 14.4 % (11.5-14.5); Segmented Neutrophils % 57.9 %
[2017-01-15 06:55] LABS: BUN/Creatinine Ratio 13 (6-26); Blood Urea Nitrogen 10 mg/dL (8-26); Calcium 8.8 mg/dL (8.6-10.8); Carbon Dioxide 27 mEq/L (19-29); Chloride 97 mEq/L (98-109); Glucose 315 mg/dL (70-99); Osmolality,Calculated 279 (280-300); Potassium 4.5 mEq/L (3.5-4.5); Sodium 129 mEq/L (136-145); eGFR For African Americans > 60 (> 60); eGFR For Non-African Americans > 60 (> 60)
[2017-01-15] MEDS: Gabapentin 400 MG CAPSULE PO SCH ×3 (08:14→20:13)
[2017-01-15] MEDS: Furosemide 20 MG TABLET PO SCH (08:14)
[2017-01-15] MEDS: Insulin LISPRO 300 UNITS/3 ML VIAL SQ SCH ×7 (08:14→20:52)
[2017-01-15] MEDS: *HR* OxyCODONE/APAP 10/325 TABLET PO PRN ×3 (08:14→21:51)
[2017-01-15] MEDS: Nystatin POWDER 30 GM BOTTLE TP SCH (08:15)
[2017-01-15] MEDS: *HR* Heparin 5,000 UNIT/ML VIAL SQ SCH ×3 (08:22→23:55)
--- NOTE | 2017-01-15 08:39 | General Surgery Progress Note ---
<Gil Springer - Last Filed: 01/15/17 11:46> Date of Encounter: 01/15/17 Time of Encounter: 08:37 - Assessment and Plan (1) Abscess of right buttock Current Visit: Yes Status: Acute CT of abd and pelvis demonstrates abscess in the right gluteal fold and exam yielded an area of fluctuance I&D was performed on 01/13/2017 with moderate amount of purulent fluid. Wound cultures showing GBS Daily wound care - wash with soap and water, packing with iodoform, 4x4 or abd, tape IV antibiotics - Vancomycin and Zosyn IV fluids Diabetic diet Pain control - Switched Neda to his home Percocet 10 q6hrs with improvement Supportive care Encourage ICS and ambulate as tolerated Discharge planning - patient will likely require home health for wound packing upon discharge, transition to by mouth antibiotics and have adequate diabetic education to diminish risk of recurrence. Surgery will follow at a distance. Thank you for involving us in this patient' s care. Please feel free to contact us with any questions. Wound care instructions documented. (2) Sepsis Current Visit: Yes Status: Acute Afebrile, pulse 88 Currently on vancomycin and Zosyn Wound cultures showing GBS Medicine following. Qualifiers: Sepsis type: sepsis due to unspecified organism Qualified Code(s): A41.9 - Sepsis, unspecified organism (3) Uncontrolled diabetes mellitus Current Visit: Yes Status: Acute Blood sugar is not controlled. BS today was 315. Hemoglobin A1c today was greater than 14. Defer management to medicine. Qualifiers: Diabetes mellitus type: type 2 Diabetes mellitus complication status: with hyperglycemia Diabetes mellitus fpc insulin use: unspecified fpc insulin use status Qualified Code(s): E11.65 - Type 2 diabetes mellitus with hyperglycemia (4) Morbid obesity with BMI of 40.0-44.9, adult Current Visit: Yes Status: Chronic (5) Tobacco abuse Current Visit: Yes Status: Chronic Nicotine patch PRN (6) Hyperlipidemia Current Visit: Yes Status: Chronic Qualifiers: Hyperlipidemia type: mixed hyperlipidemia Qualified Code(s): E78.2 - Mixed hyperlipidemia (7) DVT prophylaxis Current Visit: Yes Status: Acute Heparin Ambulate as tolerated Subjective Patient reports: no new complaints, pain is less, tolerating a regular diet ( Diabetic), voiding w/o difficulty, flatus, bowel movement, afebrile Objective Vital Signs - Last 8 Hours Temp Pulse Resp BP Pulse Ox 07/22/17 07:01 98.2 F 92 18 156/89 93 01/15/17 04:42 98.1 F 76 14 124/80 96 Intake and Output 01/14/17 01/15/17 01/15/17 23:59 07:59 15:59 Intake Total 800 / 800 0 / 0 Output Total 1500 / 1500 450 / 450 Balance -700 / -700 -450 / -450 Intake: IV Fluids 200 / 200 Zosyn 3.375 GM In 200 / 200 Dextrose 5% (Minibag+) 100 ML 100 ML @ 25 mls/hr IVPB Q8H [facility] Rx#: [id number] Oral 600 / 600 0 / 0 Output: Urine 1500 / 1500 450 / 450 Other: Meal Dinner Percent of Meal Consumed 100% Weight 135.125 kg Blood Glucose* 273 273 Patient Weight 01/15/17 23:59 Weight 135.125 kg - General physical appearance no distress, obese (Morbidly) - Eyes normal ocular movement - ENT atraumatic - Neck Neck exam: trachea midline - Respiratory normal expansion, normal respiratory effort, clear to auscultation - Cardiovascular Cardiovascular exam: Present: RRR, murmurs (FIDENCIO) - Abdomen Abdomen: Present: bowel sounds present, soft, non tender - Integumentary other (Right buttock - dressing present with minimal shadowing over wound. Packing is present without drainage. Area of tenderness, induration and erythema is decreased.) - Neurologic CN 2-12 grossly intact - Psychiatric oriented to time, oriented to person, oriented to place, speech is normal, memory intact - Labs 01/15/17 06:36 01/15/17 06:36 Short CBC 01/15/17 Range/Units 06:36 WBC 9.4 (4.3-11.1) K/mcL Hgb 15.5 (12.9-16.9) g/dL Hct 47.7 (37.5-50.1) % Plt Count 255 (140-400) K/mcL Neutrophils # 5.4 (1.6-8.9) K/mcL BMP 01/15/17 Range/Units 06:36 Sodium 129 L (136-145) mEq/L Potassium 4.5 (3.5-4.5) mEq/L Chloride 97 L (98-109) mEq/L Carbon Dioxide 27 (19-29) mEq/L BUN 10 (8-26) mg/dL Creatinine 0.77 (0.72-1.25) mg/dL Glucose 315 H (70-99) mg/dL Calcium 8.8 (8.6-10.8) mg/dL Vital Signs Temp Pulse Resp BP Pulse Ox 01/15/17 07:01 98.2 F 92 18 156/89 93 01/15/17 04:42 98.1 F 76 14 124/80 96 01/14/17 23:10 97.8 F 95 14 120/75 92 01/14/17 20:21 98.5 F 99 15 163/91 93 01/14/17 15:48 98.6 F 99 16 110/65 95 01/14/17 10:00 98.3 F 94 16 103/72 96 Intake and Output 01/14/17 01/15/17 01/15/17 23:59 07:59 15:59 Intake Total 800 / 800 0 / 0 Output Total 1500 / 1500 450 / 450 Balance -700 / -700 -450 / -450 Intake: IV Fluids 200 / 200 Zosyn 3.375 GM In 200 / 200 Dextrose 5% (Minibag+) 100 ML 100 ML @ 25 mls/hr IVPB Q8H [facility] Rx#: [id number] Oral 600 / 600 0 / 0 Output: Urine 1500 / 1500 450 / 450 Other: Meal Dinner Percent of Meal Consumed 100% Weight 135.125 kg Blood Glucose* 273 273 Patient Weight 01/15/17 23:59 Weight 135.125 kg Consult Discharge Plan - Plan Additional Instructions: Okay to shower and remove packing with soap and water. Do not go swimming or soak in bath for 2 weeks. Wound care instructions - daily removal of packing, wash with soap and water, pack with 1/4 inch iodoform gauze, 4 x 4 dressing and tape to secure Home health to manage wound care for 1 week. Referrals: Eden Murrieta MD [Non-Partnered Physician] - <Jasper Leonardo - Last Filed: 01/16/17 09:28> Date of Encounter: 01/16/17 Objective Vital Signs - Last 8 Hours Temp Pulse Resp BP Pulse Ox 01/16/17 07:35 97.8 F 77 15 96/61 95 01/16/17 04:37 98.2 F 98 18 132/89 95 Intake and Output 01/15/17 01/16/17 01/16/17 23:59 07:59 15:59 Intake Total 460 / 460 620 / 620 Output Total 0 / 0 875 / 875 Balance 460 / 460 -255 / -255 Intake: IV Fluids 100 / 100 500 / 500 Zosyn 3.375 GM In 100 / 100 Dextrose 5% (Minibag+) 100 ML 100 ML @ 25 mls/hr IVPB Q8H [facility] Rx#: [id number] Vancocin 2,000 MG In 500 / 500 Dextrose 5% 500 ML @ 250 mls/hr IVPB Q12H [facility] Rx#: [id number] Oral 360 / 360 120 / 120 Output: Urine 0 / 0 875 / 875 Other: Meal Dinner Percent of Meal Consumed 80% Weight 135.125 kg Blood Glucose* 307 317 Patient Weight 01/16/17 23:59 Weight 135.125 kg - Labs 01/15/17 06:36 01/16/17 03:03 Diabetes panel 01/15/17 01/16/17 Range/Units 06:36 03:03 Sodium 129 L 130 L (136-145) mEq/L Potassium 4.5 4.1 (3.5-4.5) mEq/L Chloride 97 L 95 L (98-109) mEq/L Carbon Dioxide 27 25 (19-29) mEq/L BUN 10 11 (8-26) mg/dL Creatinine 0.77 0.81 (0.72-1.25) mg/dL Glucose 315 H 332 H (70-99) mg/dL Calcium 8.8 9.2 (8.6-10.8) mg/dL AST 148 H (5-34) Units/L ALT 98 H (0-55) Units/L Alkaline Phosphatase 160 H (38-126) Units/L Albumin 2.7 L (3.5-5.0) g/dL Calcium panel 01/15/17 01/16/17 Range/Units 06:36 03:03 Calcium 8.8 9.2 (8.6-10.8) mg/dL Albumin 2.7 L (3.5-5.0) g/dL Pituitary panel 01/15/17 01/16/17 Range/Units 06:36 03:03 Sodium 129 L 130 L (136-145) mEq/L Potassium 4.5 4.1 (3.5-4.5) mEq/L Chloride 97 L 95 L (98-109) mEq/L Carbon Dioxide 27 25 (19-29) mEq/L BUN 10 11 (8-26) mg/dL Creatinine 0.77 0.81 (0.72-1.25) mg/dL Glucose 315 H 332 H (70-99) mg/dL Calcium 8.8 9.2 (8.6-10.8) mg/dL Adrenal panel 01/15/17 01/16/17 Range/Units 06:36 03:03 Sodium 129 L 130 L (136-145) mEq/L Potassium 4.5 4.1 (3.5-4.5) mEq/L Chloride 97 L 95 L (98-109) mEq/L Carbon Dioxide 27 25 (19-29) mEq/L BUN 10 11 (8-26) mg/dL Creatinine 0.77 0.81 (0.72-1.25) mg/dL Glucose 315 H 332 H (70-99) mg/dL Calcium 8.8 9.2 (8.6-10.8) mg/dL Total Bilirubin 0.6 (0.2-1.2) mg/dL AST 148 H (5-34) Units/L ALT 98 H (0-55) Units/L Alkaline Phosphatase 160 H (38-126) Units/L Albumin 2.7 L (3.5-5.0) g/dL - Attending Attestation I examined this patient and my medical decision-making was reviewed with the Resident Physician. I agree with the documented findings, disposition and treatment plan as described except to the extent set forth below. The assessment and evaluation with the resident and agree with the above plan. Will follow from a distance. Please contact us if there are any questions.
[2017-01-15 09:29] LABS: C-Reactive Protein 50 mg/L (Less than 5)
[2017-01-15] MEDS: *HR* Morphine 2 MG/ML SYRINGE IVP PRN ×4 (10:51→23:54)
[2017-01-15] MEDS: Nicotine 2 MG GUM BC PRN ×4 (10:51→23:55)
[2017-01-15] MEDS: Insulin DETEMIR 100 UNIT/ML X5UNITS SQ SCH ×2 (10:52→20:53)
[2017-01-15] MEDS: Vancomycin 2,000 MG in D5% in Water 500 ML IVPB SCH ×2 (12:38→23:55)
[2017-01-15] MEDS: Artificial Tears SOLN 15 ML BOTTLE OP PRN ×2 (14:37→20:14)
[2017-01-16] MEDS: Nystatin POWDER 30 GM BOTTLE TP SCH ×3 (00:01→20:46)
[2017-01-16] MEDS: Nicotine 2 MG GUM BC PRN ×3 (02:34→20:31)
[2017-01-16] MEDS: *HR* OxyCODONE/APAP 10/325 TABLET PO PRN ×4 (03:26→22:10)
[2017-01-16] MEDS: Piperacillin/Tazobactam 3.375 GM in D5% in Water (Mini-Bag+) 100 ML IVPB SCH ×3 (03:27→18:33)
[2017-01-16 04:03] LABS: Alanine Aminotransferase 98 Units/L (0-55); Albumin 2.7 g/dL (3.5-5.0); Albumin/Globulin Ratio 0.5 (1.1-2.2); Alkaline Phosphatase 160 Units/L (38-126); Aspartate Amino Transferase 148 Units/L (5-34); BUN/Creatinine Ratio 14 (6-26); Bilirubin,Total 0.6 mg/dL (0.2-1.2); Blood Urea Nitrogen 11 mg/dL (8-26); Calcium 9.2 mg/dL (8.6-10.8); Carbon Dioxide 25 mEq/L (19-29); Chloride 95 mEq/L (98-109); Globulin 5.4 g/dL (2.4-3.5); Glucose 332 mg/dL (70-99); Osmolality,Calculated 282 (280-300); Potassium 4.1 mEq/L (3.5-4.5); Sodium 130 mEq/L (136-145); Total Protein 8.1 g/dL (6.0-8.3); eGFR For African Americans > 60 (> 60); eGFR For Non-African Americans > 60 (> 60)
[2017-01-16] MEDS: *HR* Morphine 2 MG/ML SYRINGE IVP PRN ×2 (05:51→11:09)
[2017-01-16] MEDS: Artificial Tears SOLN 15 ML BOTTLE OP PRN ×2 (05:52→20:31)
[2017-01-16] MEDS: Insulin LISPRO 300 UNITS/3 ML VIAL SQ SCH ×7 (07:40→20:47)
[2017-01-16] MEDS: *HR* Heparin 5,000 UNIT/ML VIAL SQ SCH ×2 (07:40→17:01)
[2017-01-16] MEDS: Furosemide 20 MG TABLET PO SCH (07:41)
[2017-01-16] MEDS: Gabapentin 400 MG CAPSULE PO SCH ×3 (07:41→20:31)
[2017-01-16] MEDS: Insulin DETEMIR 100 UNIT/ML X5UNITS SQ SCH (09:18)
[2017-01-16] MEDS: Vancomycin 2,000 MG in D5% in Water 500 ML IVPB SCH (12:00)
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
[2017-01-16] MEDS ORDERED: Insulin DETEMIR 100 UNIT/ML X5UNITS SQ SCH (21:00)
[2017-01-17] MEDS: Vancomycin 2,000 MG in D5% in Water 500 ML IVPB SCH (00:53)
[2017-01-17] MEDS: *HR* Heparin 5,000 UNIT/ML VIAL SQ SCH ×2 (00:56→07:56)
[2017-01-17] MEDS: Piperacillin/Tazobactam 3.375 GM in D5% in Water (Mini-Bag+) 100 ML IVPB SCH (03:24)
[2017-01-17 04:52] LABS: Alanine Aminotransferase 90 Units/L (0-55); Albumin 2.6 g/dL (3.5-5.0); Albumin/Globulin Ratio 0.5 (1.1-2.2); Alkaline Phosphatase 150 Units/L (38-126); Aspartate Amino Transferase 123 Units/L (5-34); BUN/Creatinine Ratio 15 (6-26); Bilirubin,Total 0.5 mg/dL (0.2-1.2); Blood Urea Nitrogen 12 mg/dL (8-26); Calcium 9.4 mg/dL (8.6-10.8); Carbon Dioxide 27 mEq/L (19-29); Chloride 96 mEq/L (98-109); Globulin 5.1 g/dL (2.4-3.5); Glucose 304 mg/dL (70-99); Osmolality,Calculated 285 (280-300); Potassium 4.2 mEq/L (3.5-4.5); Sodium 132 mEq/L (136-145); Total Protein 7.7 g/dL (6.0-8.3); eGFR For African Americans > 60 (> 60); eGFR For Non-African Americans > 60 (> 60)
[2017-01-17] MEDS: Insulin LISPRO 300 UNITS/3 ML VIAL SQ SCH ×4 (07:54→11:40)
[2017-01-17] MEDS: *HR* OxyCODONE/APAP 10/325 TABLET PO PRN ×2 (07:55→14:18)
[2017-01-17] MEDS ORDERED: Insulin DETEMIR 100 UNIT/ML X5UNITS SQ SCH (09:00)
[2017-01-17] MEDS: Furosemide 20 MG TABLET PO SCH (09:42)
[2017-01-17] MEDS: Gabapentin 400 MG CAPSULE PO SCH ×2 (09:42→15:34)
[2017-01-17 10:26] LABS: Hepatitis A Antibody IgM Nonreactive (Nonreactive); Hepatitis B Surface Antigen Nonreactive (Nonreactive)
[2017-01-17 10:27] LABS: Hepatitis B Core IgM Grayzone (Nonreactive); Hepatitis C Virus Antibody Reactive (Nonreactive)
[2017-01-17 11:01] VITALS: BP 112/74
[2017-01-17] MEDS: Nystatin POWDER 30 GM BOTTLE TP SCH (11:41)
[2017-01-17] MEDS: Artificial Tears SOLN 15 ML BOTTLE OP PRN (12:41)
[2017-01-17] MEDS: Nicotine 2 MG GUM BC PRN (12:42)
--- NOTE | 2017-01-17 13:58 | Physician Discharge Referral ---
Home Health/Hosp Referral Info Transfer to: Home Health Attending Provider: santana Provider in Charge Post Discharge: PCP (Need wound dressing) - Diagnosis (1) Drug-seeking behavior Status: Chronic (2) Morbid obesity with BMI of 40.0-44.9, adult Status: Chronic (3) Transaminitis Status: Acute (4) Hyperlipidemia Status: Chronic (5) Abscess of right buttock Status: Acute (6) Diabetes Status: Chronic (7) Sepsis Status: Acute (8) Uncontrolled diabetes mellitus Status: Acute (9) Hyponatremia Status: Acute (10) Bilateral leg cramps Status: Acute - Respiratory Orders Smoking Cessation: Smoking cessation has been advised. For more information, call the Nephros Quit Line at 1-512-IWTF-NOW. - Transfer Medications Home Medications: Furosemide [Lasix] 20 mg PO DAILY #30 tablet 08/16/16 [Rx] hydrOXYzine pamoate [HydrOXYzine Pamoate] 25 mg PO Q8H PRN 11/10/16 [History] Atorvastatin [Lipitor] 20 mg PO HS #30 tablet 11/12/16 [Rx] Gabapentin [Neurontin] 300 mg PO TID 12/20/16 [History] Insulin LISPRO [HumaLOG] 10 units SQ TIDWM 12/20/16 [History] Insulin Glargine [Lantus] 40 unit SQ BID #0 12/23/16 [Rx] Menthol [Biofreeze] 1 appl TP BID PRN 01/13/17 [History] Nicotine Polacrilex [Nicotine Gum] 4 mg BC Q2H PRN 01/13/17 [History] Nystatin POWDER [Nystop] 1 appl TP BID 01/13/17 [History] OxyCODONE/APAP 10/325 [Percocet 10/325 MG] 1 tab PO Q6H PRN 01/13/17 [History] Polyvinyl Alcohol [Artificial Tears] 1 drop OP BID PRN 01/13/17 [History] Allergies/Adverse Reactions: Allergies aspirin [ASA] Allergy (Verified 12/20/16 20:44) Swelling of Lip/Tongue/Throat also rash Bleach (Sodium Hypochlorite) Allergy (Verified 12/30/16 21:28) Rash naproxen [From Naprosyn] Allergy (Verified 12/30/16 21:28) Rash Certification: Further, I certify that my clinical findings support that this patient is homebound (i.e. absences from home require considerable and taxing effort and are for medical reasons or alevism services or infrequently or short duration when for other reasons) because: Homebound Reason: Patient requires assistance of a person or device to safely leave home Attestation: My signature below is to certify that this patient is under my care and that I, or nurse practitioner, or a physician's assistant fitness manager working with me, has a face-to -face encounter with this patient.
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
--- NOTE | 2017-01-17 15:01 | Physician Discharge Referral ---
Home Health/Hosp Referral Info Transfer to: Home Health Attending Provider: santana Provider in Charge Post Discharge: PCP - Diagnosis (1) Drug-seeking behavior Status: Chronic (2) Morbid obesity with BMI of 40.0-44.9, adult Status: Chronic (3) Transaminitis Status: Acute (4) Hyperlipidemia Status: Chronic (5) Abscess of right buttock Status: Acute (6) Diabetes Status: Chronic (7) Sepsis Status: Acute (8) Uncontrolled diabetes mellitus Status: Acute (9) Hyponatremia Status: Acute (10) Bilateral leg cramps Status: Acute (11) Chronic hepatitis Status: Acute - Respiratory Orders Smoking Cessation: Smoking cessation has been advised. For more information, call the [employer] Tobacco Quit Line at 1-003-ZWKG-NOW. - Dressing/Wound Care Site: Right gluteal wound needs dressing and wound care Type of Dressing/Treatments w/Frequency: Please fill the wound with the medicated to strep and apply dry dressing daily - Services Needed Following services are medically necessary services: Nursing - Transfer Medications Prescriptions: HYDROcodone/Acet 10/325 mg [[place] 10-325 mg] 1 tab PO Q6HR PRN #12 tab PRN Reason: Moderate Pain Amoxicillin/Clavulanate [Augmentin] 875 mg PO BIDWM #20 tablet Atorvastatin [Lipitor] 40 mg PO HS #30 tab Gemfibrozil [Lopid] 600 mg PO BIDAC #30 tab Insulin Glargine [Lantus] 55 unit SQ BID #30 Nystatin POWDER [Nystop] 1 appl TP BID #1 bottle Home Medications: Furosemide [Lasix] 20 mg PO DAILY #30 tablet 08/16/16 [Rx] hydrOXYzine pamoate [HydrOXYzine Pamoate] 25 mg PO Q8H PRN 11/10/16 [History] Gabapentin [Neurontin] 300 mg PO TID 12/20/16 [History] Insulin LISPRO [HumaLOG] 10 units SQ TIDWM 12/20/16 [History] Menthol [Biofreeze] 1 appl TP BID PRN 01/13/17 [History] Nicotine Polacrilex [Nicotine Gum] 4 mg BC Q2H PRN 01/13/17 [History] Nystatin POWDER [Nystop] 1 appl TP BID 01/13/17 [History] Polyvinyl Alcohol [Artificial Tears] 1 drop OP BID PRN 01/13/17 [History] Amoxicillin/Clavulanate [Augmentin] 875 mg PO BIDWM #20 tablet 01/17/17 [Rx] Atorvastatin [Lipitor] 40 mg PO HS #30 tab 01/17/17 [Rx] Docusate [Colace] 100 mg PO BID 01/17/17 [Rx] Gemfibrozil [Lopid] 600 mg PO BIDAC #30 tab 01/17/17 [Rx] HYDROcodone/Acet 10/325 mg [[place] 10-325 mg] 1 tab PO Q6HR PRN #12 tab 01/17/17 [Rx] Insulin Glargine [Lantus] 55 unit SQ BID #30 01/17/17 [Rx] Nystatin POWDER [Nystop] 1 appl TP BID #1 bottle 01/17/17 [Rx] OxyCODONE/APAP 10/325 [Percocet 10/325 MG] 1 each PO Q6HR PRN tab 01/17/17 [Rx] Allergies/Adverse Reactions: Allergies aspirin [ASA] Allergy (Verified 12/20/16 20:44) Swelling of Lip/Tongue/Throat also rash Bleach (Sodium Hypochlorite) Allergy (Verified 12/30/16 21:28) Rash naproxen [From Naprosyn] Allergy (Verified 12/30/16 21:28) Rash Certification: Further, I certify that my clinical findings support that this patient is homebound (i.e. absences from home require considerable and taxing effort and are for medical reasons or jewish services or infrequently or short duration when for other reasons) because: Homebound Reason: Patient requires assistance of a person or device to safely leave home Attestation: My signature below is to certify that this patient is under my care and that I, or nurse practitioner, or a physician's assistant child care teacher working with me, has a face-to -face encounter with this patient.
[2017-01-17] MEDS ORDERED: Aminoglycoside Consult 1 EACH MC ONE (15:39)
== END 2017-01-17 15:40 | disposition home or self-care (01) | DRG 720 ==
LOC: 3ANU 08:13 → EMEROO 08:13 → 3ANU 12:52
PROVIDERS: ADMIT Nurse Practitioner Family; ATTEND Internal Medicine